=== PATIENT | female | born 1965 | race African-American/Black ===

== ENCOUNTER 2017-01-04 13:27 | Inpatient (IN) | payer OTHER ==
[2017-01-04 14:45] VITALS: BMI 32.2
--- NOTE | 2017-01-04 14:59 | HP ---
CIWA Score - CIWA Score Nausea/Vomitin Muscle Tremors: 3 Anxiety: 3 Agitation: 3 Paroxysmal Sweats: 2 Orientation: 0-Oriented Tacttile Disturbances: 2-Mild Itch/Numbness/Burn Auditory Disturbances: 2-Mild Harshness/Frighten Visual Disturbances: 2-Mild Sensitivity Headache: 2-Mild CIWA-Ar Total Score: 22 Admission ROS BHS - HPI Chief Complaint: i need help to stop drinking alcohol,cocaine and marijuana Allergies/Adverse Reactions: Allergies Allergy/AdvReac Type Severity Reaction Status Date / Time No Known Allergies Allergy Verified 01/04/17 17:30 History of Present Illness: this 51years old female with alcohol,cocaine and marijuana dependence, withdrawal symptom,last detox [facility] 08/21/16 to 08/25/16 type 2 dm hypertension nicotine dependence bipolar disorder longest period of sobriety 3 years Exam Limitations: No Limitations - Ebola screening Have you traveled outside of the country in the last 21 days: No Have you had contact with anyone from an Ebola affected area: No Have you been sick,other than usual withdrawal symptoms: No Do you have a fever: No - Review of Systems Constitutional: Loss of Appetite, Malaise, Night Sweats, Changes in sleep, Weakness EENT: reports: Nose Congestion Respiratory: reports: No Symptoms reported Cardiac: reports: Palpitations GI: reports: Diarrhea, Nausea, Vomiting, Abdominal cramping : reports: No Symptoms Reported Musculoskeletal: reports: Back Pain, Muscle Pain Integumentary: reports: Dryness Neuro: reports: Headache, Tremors Endocrine: reports: No Symptoms Reported Hematology: reports: No Symptoms Reported Psychiatric: reports: Depressed Other Systems: Reviewed and Negative Patient History - Patient Medical History Hx Anemia: No Hx Asthma: No Hx Chronic Obstructive Pulmonary Disease (COPD): No Hx Cancer: No Hx Cardiac Disorders: No Hx Congestive Heart Failure: No Hx Hypertension: Yes (on medication) Hx Hypercholesterolemia: No Hx Pacemaker: No HX Cerebrovascular Accident: No Hx Seizures: No Hx Dementia: No Hx Diabetes: No Hx Gastrointestinal Disorders: No Hx Liver Disease: No Hx Genitourinary Disorders: No Hx Sexually Transmitted Disorders: No Hx Renal Disease (ESRD): No Hx Thyroid Disease: No Hx Human Immunodeficiency Virus (HIV): No (last 12/20 negative) Hx Hepatitis C: No Hx Depression: No Hx Suicide Attempt: No Hx Bipolar Disorder: Yes (abilify use not complaint ) Hx Schizophrenia: No Other Medical History: no suicidal,no homicidal - Patient Surgical History Past Surgical History: Yes Hx Neurologic Surgery: No Hx Cataract Extraction: No Hx Cardiac Surgery: No Hx Lung Surgery: No Hx Breast Surgery: No Hx Breast Biopsy: No Hx Abdominal Surgery: No Hx Appendectomy: No Hx Cholecystectomy: No Hx Genitourinary Surgery: No Hx Section: No Hx Orthopedic Surgery: No Other Surgical History: SX FOR PILONIDAL CYST IN 1986 Anesthesia Reaction: No - PPD History Previous Implant?: Yes Documented Results: Positive w/o proof Implanted On Prior [facility] Admission?: No PPD to be Administered?: No - Reproductive History Patient is a Female of Child Bearing Age (11 -55 yrs old): Yes Last Menstrual Period: 09/13/15 Patient : No - Smoking Cessation Smoking history: Current every day smoker Have you smoked in the past 12 months: Yes Aproximately how many cigarettes per day: 10 Hx Chewing Tobacco Use: No Initiated information on smoking cessation: Yes 'Breaking Loose' booklet given: 01/04/17 - Substance & Tx. History Hx Alcohol Use: Yes Hx Substance Use: Yes Substance Use Type: Alcohol, Cocaine, Marijuana Hx Substance Use Treatment: Yes ([facility] 08/21/16 to 08/25/16) - Substances Abused Alcohol Route: Oral Frequency: Daily Amount used: 2pints of vodka,virgilio/4 of 40 ozs of beer Age of first use: 15 Date of Last Use: 01/04/17 Cocaine Route: Smoking Frequency: Daily Amount used: 100$ Age of first use: 22 Date of Last Use: 01/03/17 Marijuana/Hashish Route: Smoking Frequency: 1-3 times last 30 days Amount used: 10$ Age of first use: 15 Date of Last Use: 01/03/17 Family Disease History - Family Disease History Family Disease History: Other: Father (WAS AN ALCOHOLIC BEFORE AND STOPPED 8 YRS. AGO), Mother (alcohol) Admission Physical Exam S - Vital Signs Vital Signs: Vital Signs - 24 hr 01/04/17 14:42 Temperature 95.9 F L Pulse Rate 101 H Respiratory 20 Rate Blood Pressure 108/68 - Physical General Appearance: Yes: Moderate Distress, Tremorous, Irritable, Sweating, Anxious HEENTM: Yes: Hearing grossly Normal, Normal ENT Inspection, Pharynx Normal, Nasal Congestion Respiratory: Yes: Lungs Clear, Normal Breath Sounds, No Respiratory Distress Neck: Yes: Within Normal Limits Breast: Yes: Breast Exam Deferred Cardiology: Yes: Within Normal Limits, Regular Rate, S1, S2 Abdominal: Yes: Within Normal Limits, Normal Bowel Sounds, Non Tender, Flat, Soft Genitourinary: Yes: Within Normal Limits Musculoskeletal: Yes: Back pain Extremities: Yes: Within Normal Limits, Normal Range of Motion, Tremors Neurological: Yes: mechanical detailer II-XII NML intact, Fully Oriented, Alert, Motor Strength 5/5 Integumentary: Yes: Dry Lymphatic: Yes: Within Normal Limits - Diagnostic (1) Alcohol dependence with uncomplicated withdrawal Current Visit: No Status: Acute (2) Nicotine dependence Current Visit: No Status: Acute (3) Bipolar disorder, curr episode mixed, severe, with psychotic features Current Visit: No Status: Chronic (4) Cannabis dependence Current Visit: No Status: Chronic (5) Cocaine dependence Current Visit: No Status: Chronic (6) DM Diabetes mellitus type 2 Current Visit: No Status: Chronic (7) Hypertension Current Visit: No Status: Chronic Qualifiers: Hypertension type: essential hypertension Qualified Code(s): I10 - Essential (primary) hypertension (8) Obesity Current Visit: No Status: Chronic Qualifiers: Obesity type: due to excess calories Obesity severity: unspecified obesity severity Qualified Code(s): E66.09 - Other obesity due to excess calories Cleared for Admission S - Detox or Rehab [facility] Level of Care: Medically Managed Detox Regimen/Protocol: Librium [facility] Breath Alcohol Content Breath Alcohol Content: 0 Urine Pregancy Test - Result Urine Test Results: Negative- NO Line Present Urine Drug Screen - Results Drug Screen Negative: No Urine Drug Screen Results: DILEEP-Cocaine
[2017-01-04] MEDS ORDERED: MAGNESIUM CITRATE 300 ML BOTTLE PO PRN (15:38)
[2017-01-04] MEDS ORDERED: hydrOXYzine PAMOATE 50 MG CAPSULE (FP) PO PRN (15:38)
[2017-01-04] MEDS ORDERED: guaiFENesin/D-METHORPHAN HB 10 ML UNIT-DOSE CUPS PO PRN (15:38)
[2017-01-04] MEDS ORDERED: P-EPHED 60MG/TRIPROLIDI 2.5MG TABLET PO PRN (15:38)
[2017-01-04] MEDS ORDERED: IBUPROFEN 400 MG TABLET (FP) PO PRN (15:38)
[2017-01-04] MEDS ORDERED: LOPERAMIDE HCL 2 MG CAPSULE PO PRN (15:38)
[2017-01-04] MEDS ORDERED: chlordiazePOXIDE HCL 25 MG CAPSULE PO PRN (15:38)
[2017-01-04] MEDS ORDERED: diphenhydrAMINE HCL 50 MG CAPSULE PO PRN (15:38)
[2017-01-04] MEDS ORDERED: MENTHOL/PHENOL 1 EACH UD MM PRN (15:38)
[2017-01-04] MEDS ORDERED: ACETAMINOPHEN 325 MG TABLET (FP) PO PRN (15:38)
[2017-01-04] MEDS ORDERED: MAGNESIUM HYDROX 2400MG/30ML ORAL SUSPENSION 30 ML CUP PO PRN (15:38)
[2017-01-04] MEDS ORDERED: chlordiazePOXIDE HCL 25 MG CAPSULE PO ONE (15:38)
[2017-01-04] MEDS: chlordiazePOXIDE HCL 25 MG CAPSULE PO SCH ×2 (17:55→22:29)
[2017-01-04] MEDS: MAG HYDROX/AL HYDROX/SIMETH 30 ML UNIT-DOSE CUP PO PRN (18:48)
[2017-01-04 19:26] LABS: URINE APPEARANCE CLEAR; URINE BILIRUBIN NEGATIVE (NEGATIVE); URINE BLOOD NEGATIVE (NEGATIVE); URINE COLOR DKYELLOW; URINE GLUCOSE (UA) NEGATIVE (NEGATIVE); URINE KETONE TRACE (NEGATIVE); URINE LEUK ESTERASE NEGATIVE (NEGATIVE); URINE NITRITE NEGATIVE (NEGATIVE); URINE PROTEIN NEGATIVE (NEGATIVE); URINE UROBILINOGEN NEGATIVE E.U./dl (0.2-1.0)
[2017-01-04] MEDS: THIAMINE HCL 100 MG TABLET (FP) PO SCH (22:29)
[2017-01-04] MEDS: INSULIN DETEMIR 100 UNITS/ML MDV SQ SCH (23:18)
[2017-01-05] MEDS: chlordiazePOXIDE HCL 25 MG CAPSULE PO SCH ×4 (04:46→22:59)
[2017-01-05] MEDS: metFORMIN HCL 500 MG TABLET (FP) PO SCH ×2 (08:16→17:27)
[2017-01-05 10:27] LABS: ALBUMIN 3.2 g/dl (3.4-5.0); ANION GAP 9 (8-16); CALCIUM 8.8 mg/dL (8.5-10.1); CO2 25 mmol/L (21-32); GLUCOSE,RANDOM 135 mg/dL (74-106)
[2017-01-05 10:30] LABS: ALK PHOS 75 U/L (45-117); BILIRUBIN,TOTAL 0.5 mg/dL (0.2-1.0); CREATININE 0.7 mg/dL (0.55-1.02); MCH 30.5 pg (25.7-33.7); MCHC 34.9 g/dl (32.0-36.0); MEAN CELL VOLUME 87.3 fl (80-96); PLATELET COUNT 253 K/MM3 (134-434); RDW 16.3 % (11.6-15.6); SGOT/AST 10 U/L (15-37); SGPT/ALT 18 U/L (12-78); TOT PROT 6.2 g/dl (6.4-8.2); WHITE BLOOD COUNT 5.2 K/mm3 (4.0-10.0)
[2017-01-05] MEDS: PRENATAL VITAMINS W/ FOLIC ACID TABLET (FP) PO SCH (10:59)
[2017-01-05] MEDS: LISINOPRIL 10 MG TABLET (FP) PO SCH (10:59)
--- NOTE | 2017-01-05 11:34 | PN ---
S CIWA - CIWA Score Nausea/Vomitin Muscle Tremors: 3 Anxiety: 3 Agitation: 3 Paroxysmal Sweats: 1-Minimal Palms Moist Orientation: 0-Oriented Tacttile Disturbances: 1-Very Mild Itch/Numbness Auditory Disturbances: 1-Very Mild Visual Disturbances: 1-Very Mild Sensitivity Headache: 2-Mild CIWA-Ar Total Score: 18 BHS Progress Note (SOAP) Subjective: ALERT,IRRITABLE,ANXIOUS,INTERRUPTED SLEEP,TREMOR,PAIN IN THE BODY Objective: 01/05/17 11:31 Vital Signs Temperature 98.2 F 01/05/17 10:39 Pulse Rate 96 H 01/05/17 10:39 Respiratory Rate 18 01/05/17 10:39 Blood Pressure 116/76 01/05/17 10:39 O2 Sat by Pulse Oximetry (%) EKG NSR NO CHEST PAIN,NO SOB,NO DIZZINESS Laboratory Last Values WBC 5.2 K/mm3 (4.0-10.0) D 01/05/17 07:45 RBC 4.22 M/mm3 (3.60-5.2) 01/05/17 07:45 Hgb 12.9 GM/dL (10.7-15.3) 01/05/17 07:45 Hct 36.8 % (32.4-45.2) 01/05/17 07:45 MCV 87.3 fl (80-96) 01/05/17 07:45 MCHC 34.9 g/dl (32.0-36.0) 01/05/17 07:45 RDW 16.3 % (11.6-15.6) H 01/05/17 07:45 Plt Count 253 K/MM3 (134-434) 01/05/17 07:45 MPV 8.0 fl (7.5-11.1) 01/05/17 07:45 Sodium 139 mmol/L (136-145) 01/05/17 07:45 Potassium 3.9 mmol/L (3.5-5.1) 01/05/17 07:45 Chloride 105 mmol/L (98-107) 01/05/17 07:45 Carbon Dioxide 25 mmol/L (21-32) 01/05/17 07:45 Anion Gap 9 (8-16) 01/05/17 07:45 BUN 9 mg/dL (7-18) 01/05/17 07:45 Creatinine 0.7 mg/dL (0.55-1.02) 01/05/17 07:45 Creat Clearance w eGFR > 60 (>60) 01/05/17 07:45 POC Glucometer 115 UNITS (()) 01/05/17 04:45 Random Glucose 135 mg/dL (74-106) H D 01/05/17 07:45 Calcium 8.8 mg/dL (8.5-10.1) 01/05/17 07:45 Total Bilirubin 0.5 mg/dL (0.2-1.0) D 01/05/17 07:45 AST 10 U/L (15-37) L D 01/05/17 07:45 ALT 18 U/L (12-78) D 01/05/17 07:45 Alkaline Phosphatase 75 U/L (45-117) 01/05/17 07:45 Total Protein 6.2 g/dl (6.4-8.2) L 01/05/17 07:45 Albumin 3.2 g/dl (3.4-5.0) L 01/05/17 07:45 Urine Color Dkyellow 01/04/17 Unknown Urine Appearance Clear 01/04/17 Unknown Urine pH 5.0 (5.0-8.0) D 01/04/17 Unknown Ur Specific Story 1.026 (1.001-1.035) 01/04/17 Unknown Urine Protein Negative (NEGATIVE) 01/04/17 Unknown Urine Glucose (UA) Negative (NEGATIVE) 01/04/17 Unknown Urine Ketones Trace (NEGATIVE) H 01/04/17 Unknown Urine Blood Negative (NEGATIVE) 01/04/17 Unknown Urine Nitrite Negative (NEGATIVE) 01/04/17 Unknown Urine Bilirubin Negative (NEGATIVE) 01/04/17 Unknown Urine Urobilinogen Negative E.U./dl (0.2-1.0) 01/04/17 Unknown Ur Leukocyte Esterase Negative (NEGATIVE) 01/04/17 Unknown 01/05/17 11:33 LABS PENDING Assessment: 01/05/17 11:33 WITHDRAWAL SYMPTOM Plan: CONTINUE DETOX,BGM MONITORING
[2017-01-05] MEDS: MAG HYDROX/AL HYDROX/SIMETH 30 ML UNIT-DOSE CUP PO PRN (16:43)
[2017-01-05] MEDS: THIAMINE HCL 100 MG TABLET (FP) PO SCH (22:59)
[2017-01-05] MEDS: INSULIN DETEMIR 100 UNITS/ML MDV SQ SCH (22:59)
[2017-01-06] MEDS: chlordiazePOXIDE HCL 25 MG CAPSULE PO SCH ×2 (05:15→10:10)
[2017-01-06] MEDS: metFORMIN HCL 500 MG TABLET (FP) PO SCH ×2 (07:50→17:04)
[2017-01-06] MEDS: PRENATAL VITAMINS W/ FOLIC ACID TABLET (FP) PO SCH (10:10)
[2017-01-06] MEDS: LISINOPRIL 10 MG TABLET (FP) PO SCH (10:10)
--- NOTE | 2017-01-06 10:51 | PN ---
S CIWA - CIWA Score Nausea/Vomitin Muscle Tremors: 2 Anxiety: 3 Agitation: 2 Paroxysmal Sweats: 3 Orientation: 0-Oriented Tacttile Disturbances: 2-Mild Itch/Numbness/Burn Auditory Disturbances: 0-None Visual Disturbances: 0-None Headache: 0-None Present CIWA-Ar Total Score: 14 S Progress Note (SOAP) Subjective: interrupted sleep, sweats , coughing , no fever or phlegm Objective: 01/06/17 10:49 Vital Signs Temperature 97.9 F 01/06/17 09:58 Pulse Rate 91 H 01/06/17 09:58 Respiratory Rate 20 01/06/17 09:58 Blood Pressure 119/68 01/06/17 09:58 O2 Sat by Pulse Oximetry (%) Laboratory Tests 01/04/17 01/04/17 01/04/17 16:40 22:28 Unknown WBC RBC Hgb Hct MCV MCHC RDW Plt Count MPV Sodium Potassium Chloride Carbon Dioxide Anion Gap BUN Creatinine Creat Clearance w eGFR POC Glucometer 107 136 Random Glucose Calcium Total Bilirubin AST ALT Alkaline Phosphatase Total Protein Albumin Urine Color Dkyellow Urine Appearance Clear Urine pH 5.0 D Ur Specific [place] 1.026 Urine Protein Negative Urine Glucose (UA) Negative Urine Ketones Trace H Urine Blood Negative Urine Nitrite Negative Urine Bilirubin Negative Urine Urobilinogen Negative Ur Leukocyte Esterase Negative RPR Titer 01/05/17 01/05/17 01/05/17 04:45 07:45 07:45 WBC 5.2 D RBC 4.22 Hgb 12.9 Hct 36.8 MCV 87.3 MCHC 34.9 RDW 16.3 H Plt Count 253 MPV 8.0 Sodium 139 Potassium 3.9 Chloride 105 Carbon Dioxide 25 Anion Gap 9 BUN 9 Creatinine 0.7 Creat Clearance w eGFR > 60 POC Glucometer 115 Random Glucose 135 H D Calcium 8.8 Total Bilirubin 0.5 D AST 10 L D ALT 18 D Alkaline Phosphatase 75 Total Protein 6.2 L Albumin 3.2 L Urine Color Urine Appearance Urine pH Ur Specific [place] Urine Protein Urine Glucose (UA) Urine Ketones Urine Blood Urine Nitrite Urine Bilirubin Urine Urobilinogen Ur Leukocyte Esterase RPR Titer 01/05/17 01/05/17 01/05/17 07:45 16:33 22:56 WBC RBC Hgb Hct MCV MCHC RDW Plt Count MPV Sodium Potassium Chloride Carbon Dioxide Anion Gap BUN Creatinine Creat Clearance w eGFR POC Glucometer 118 113 Random Glucose Calcium Total Bilirubin AST ALT Alkaline Phosphatase Total Protein Albumin Urine Color Urine Appearance Urine pH Ur Specific [place] Urine Protein Urine Glucose (UA) Urine Ketones Urine Blood Urine Nitrite Urine Bilirubin Urine Urobilinogen Ur Leukocyte Esterase RPR Titer Nonreactive 01/06/17 05:14 WBC RBC Hgb Hct MCV MCHC RDW Plt Count MPV Sodium Potassium Chloride Carbon Dioxide Anion Gap BUN Creatinine Creat Clearance w eGFR POC Glucometer 111 Random Glucose Calcium Total Bilirubin AST ALT Alkaline Phosphatase Total Protein Albumin Urine Color Urine Appearance Urine pH Ur Specific [place] Urine Protein Urine Glucose (UA) Urine Ketones Urine Blood Urine Nitrite Urine Bilirubin Urine Urobilinogen Ur Leukocyte Esterase RPR Titer pt aox3 in nad ambulating Assessment: 01/06/17 10:49 withdrawal sx;s cough /uri cont. detox increase fluids robituissin 30 ml po tid 01/06/17 10:50
--- NOTE | 2017-01-06 13:49 | CONSULT ---
[facility] Psychiatric Consult - Data Date of interview: 01/06/17 Admission source: [facility] Identifying data: Another admission to [facility] for this 51 y/o AA female seeking detox treatment for alcohol,cocaine (crack) and cannabis dependence.Patient is ,a mother of one,domiciled and employed. Substance Abuse History: - Smoking Cessation. Smoking history: Current every day smoker. Have you smoked in the past 12 months: Yes. Aproximately how many cigarettes per day: 10. Hx Chewing Tobacco Use: No. Initiated information on smoking cessation: Yes. 'Breaking Loose' booklet given: 01/04/17. - Substance & Tx. History. Hx Alcohol Use: Yes. Hx Substance Use: Yes. Substance Use Type : Alcohol, Cocaine, Marijuana. Hx Substance Use Treatment: Yes ([facility] 08/21/16 to 08/25/16). - Substances Abused. Alcohol. Route: Oral. Frequency: Daily. Amount used: 2pints of vodka,virgilio/4 of 40 ozs of beer. Age of first use: 15. Date of Last Use: 01/04/17. Cocaine. Route: Smoking. Frequency: Daily. Amount used: 100$. Age of first use: 22. Date of Last Use: 01/03/17. Marijuana/Hashish. Route: Smoking. Frequency: 1-3 times last 30 days. Amount used: 10$. Age of first use: 15. Date of Last Use: 01/03/17 Medical History: Diabetes mellitus,hypertension,varicose veins,uterine fibroids and a history of surgical excison of a pilonidal cyst. Psychiatric History: Diagnosed with Bipolar Disorder (1996).Known to [facility]) and [facility] (prior psychiatric hospitalizations) .Prescribed abilify 10 mg/day + ambien 10 mg/hs.No history of suicide attempts.No affiliation with [facility] care providers.Ms Peterson reports that she is scheduled for an intake interview on 01/17/17 at a community mental health center in the [place] (name not recalled by patient). Physical/Sexual Abuse/Trauma History: Patient denies. Additional Comment: Urine Drug Screen Results: DILEEP-Cocaine.Noted. Mental Status Exam - Mental Status Exam Alert and Oriented to: Time, Place, Person Cognitive Function: Good Patient Appearance: Well Groomed (obese) Mood: Hopeful, Euthymic Affect: Appropriate, Normal Range Patient Behavior: Appropriate, Cooperative Speech Pattern: Clear Voice Loudness: Normal Thought Process: Intact, Goal Oriented Thought Disorder: Not Present Hallucinations: Denies Suicidal Ideation: Denies Homicidal Ideation: Denies Insight/Judgement: Poor Sleep: Poorly, Difficulty falling asleep Appetite: Good Muscle strength/Tone: Normal Gait/Station: Normal Psychiatric Findings - Problem List ([place] 1, 2,3) (1) Alcohol dependence with uncomplicated withdrawal Current Visit: Yes Status: Acute (2) Cannabis dependence Current Visit: Yes Status: Acute (3) Cocaine dependence Current Visit: Yes Status: Acute (4) Nicotine dependence Current Visit: Yes Status: Acute (5) Drug-induced mood disorder Current Visit: Yes Status: Acute (6) Bipolar disorder Current Visit: Yes Status: Chronic (7) DM Diabetes mellitus type 2 Current Visit: Yes Status: Chronic (8) Hypertension Current Visit: Yes Status: Chronic Qualifiers: Hypertension type: essential hypertension Qualified Code(s): I10 - Essential (primary) hypertension (9) Obesity Current Visit: Yes Status: Chronic Qualifiers: Obesity type: due to excess calories Obesity severity: unspecified obesity severity Qualified Code(s): E66.09 - Other obesity due to excess calories (10) Insomnia Current Visit: Yes Status: Acute - Initial Treatment Plan Initial Treatment Plan: Psychoeducation.Detoxification.Medications : abilify 10 mg po daily + ambien 10 mg po hs.Side effects/benefits of both drugs discussed with the patient.Made aware of risk for parasomnias.Patient agrees with this careplan.Observation.
[2017-01-06] MEDS: ARIPiprazole 10 MG TABLET PO SCH (15:04)
[2017-01-06] MEDS: chlordiazePOXIDE 5 MG CAPSULE PO SCH ×2 (17:04→22:13)
[2017-01-06] MEDS: THIAMINE HCL 100 MG TABLET (FP) PO SCH (22:13)
[2017-01-06] MEDS: ZOLPIDEM TARTRATE 10 MG TABLET (PARK CARE ONLY) PO PRN (22:15)
[2017-01-06] MEDS: MAG HYDROX/AL HYDROX/SIMETH 30 ML UNIT-DOSE CUP PO PRN (22:16)
[2017-01-06] MEDS: INSULIN DETEMIR 100 UNITS/ML MDV SQ SCH (22:18)
[2017-01-07] MEDS: chlordiazePOXIDE 5 MG CAPSULE PO SCH ×2 (06:08→10:17)
[2017-01-07] MEDS: metFORMIN HCL 500 MG TABLET (FP) PO SCH ×2 (06:11→17:22)
[2017-01-07] MEDS: PRENATAL VITAMINS W/ FOLIC ACID TABLET (FP) PO SCH (10:17)
[2017-01-07] MEDS: ARIPiprazole 10 MG TABLET PO SCH (10:17)
[2017-01-07] MEDS: LISINOPRIL 10 MG TABLET (FP) PO SCH (10:17)
--- NOTE | 2017-01-07 10:31 | PN ---
BHS Progress Note (SOAP) Subjective: irritable sweats Objective: 01/07/17 10:30 Vital Signs Temperature 97.3 F L 01/07/17 06:13 Pulse Rate 91 H 01/07/17 06:13 Respiratory Rate 20 01/07/17 06:13 Blood Pressure 125/76 01/07/17 06:13 O2 Sat by Pulse Oximetry (%) awake/alert ambulating no acute distress Assessment: 01/07/17 10:31 withdrawal sx Plan: continue detox increase fluids d/c in am
[2017-01-07] MEDS: chlordiazePOXIDE HCL 10 MG CAPSULE PO SCH ×2 (17:22→22:23)
[2017-01-07] MEDS: THIAMINE HCL 100 MG TABLET (FP) PO SCH (22:22)
[2017-01-07] MEDS: ZOLPIDEM TARTRATE 10 MG TABLET (PARK CARE ONLY) PO PRN (22:26)
[2017-01-07] MEDS: INSULIN DETEMIR 100 UNITS/ML MDV SQ SCH (22:26)
--- NOTE | 2017-01-07 23:40 | EKG ---
Test Reason : Blood Pressure : / mmHG Vent. Rate : 095 BPM Atrial Rate : 095 BPM P-R Int : 142 ms QRS Dur : 076 ms QT Int : 358 ms P-R-T Axes : 069 049 064 degrees QTc Int : 449 ms NORMAL SINUS RHYTHM ANTERIOR INFARCT , AGE UNDETERMINED ABNORMAL ECG NO PREVIOUS ECGS AVAILABLE Confirmed by DINORAH SHIELDS, VJ ([id number]) on 01/07/2017 11:39:46 PM Referred By: Confirmed By:VJ COPELAND MD
[2017-01-08 06:12] VITALS: BP 97/66; PULSE 75; TEMP 98.1
[2017-01-08] MEDS: chlordiazePOXIDE HCL 10 MG CAPSULE PO SCH (06:18)
[2017-01-08] MEDS: metFORMIN HCL 500 MG TABLET (FP) PO SCH (08:01)
--- NOTE | 2017-01-08 08:20 | DS ---
[facility] Detox Discharge Summary Admission Date: 01/04/17 Discharge Date: 01/08/17 - History Present History: Alcohol Dependence, Cannabis Dependence, Cocaine Dependence - Physical Exam Results Vital Signs: Vital Signs Temperature 98.1 F 01/08/17 06:00 Pulse Rate 75 01/08/17 06:00 Respiratory Rate 18 01/08/17 06:00 Blood Pressure 97/66 01/08/17 06:00 O2 Sat by Pulse Oximetry (%) - Treatment Hospital Course: Detox Protocol Followed, Detoxed Safely, Responded well, Discharged Condition Good, Rehab Referral Accepted - Medication Discharge Medications: Ambulatory Orders Lisinopril 10 mg PO DAILY #30 tablet 10/27/15 Aripiprazole [Abilify -] 10 mg PO HS 08/21/16 Insulin Aspart [Novolog] 13 unit SQ TIDCM 08/21/16 Insulin Glargine,Hum.rec.anlog [Lantus Solostar PEN (NF)] 30 units SQ HS Metformin HCl [Glucophage -] 500 mg PO BID 08/21/16 Zolpidem Tartrate [Ambien] 10 mg PO HS #14 tablet MDD 10 08/22/16 Trazodone HCl [Desyrel -] 100 mg PO HS 01/04/17 Aripiprazole [Abilify -] 10 mg PO DAILY #30 tablet 01/06/17 - Diagnosis (1) Alcohol dependence with uncomplicated withdrawal Current Visit: Yes Status: Chronic (2) Cannabis dependence Current Visit: Yes Status: Chronic (3) Cocaine dependence Current Visit: Yes Status: Chronic (4) Drug-induced mood disorder Current Visit: Yes Status: Chronic (5) Insomnia Current Visit: Yes Status: Chronic (6) Nicotine dependence Current Visit: Yes Status: Chronic Qualifiers: Nicotine product type: cigarettes Substance use status: uncomplicated Qualified Code(s): F17.210 - Nicotine dependence, cigarettes, uncomplicated (7) Bipolar disorder Current Visit: Yes Status: Chronic (8) DM Diabetes mellitus type 2 Current Visit: Yes Status: Chronic (9) Hypertension Current Visit: Yes Status: Chronic Qualifiers: Hypertension type: essential hypertension Qualified Code(s): I10 - Essential (primary) hypertension (10) Obesity Current Visit: Yes Status: Chronic Qualifiers: Obesity type: due to excess calories Obesity severity: unspecified obesity severity Qualified Code(s): E66.09 - Other obesity due to excess calories (11) Alcohol dependence Current Visit: No Status: Active (12) Anxiety disorder Current Visit: No Status: Acute (13) Bipolar disorder, curr episode mixed, severe, with psychotic features Current Visit: Yes Status: Chronic - AMA Did Patient Leave Against Medical Advice: No
== END 2017-01-08 09:12 | disposition home or self-care (01) | DRG 774 ==
LOC: YASAS 13:27 → Y6N 15:50
PROVIDERS: ADMIT Internal Medicine; ATTEND Internal Medicine Addiction Medicine
PROC: HZ2ZZZZ Detoxification Services for Substance Abuse Treatment (ICD-10-PCS; principal; 2017-01-04)
DX: F10.230 Alcohol dependence with withdrawal, uncomplicated (principal); F14.20 Cocaine dependence, uncomplicated; F12.20 Cannabis dependence, uncomplicated; F17.210 Nicotine dependence, cigarettes, uncomplicated; F19.24 Other psychoactive substance dependence with psychoactive substance-induced mood disorder; F31.64 Bipolar disorder, current episode mixed, severe, with psychotic features; F41.9 Anxiety disorder, unspecified; G47.00 Insomnia, unspecified; E11.9 Type 2 diabetes mellitus without complications; I10 Essential (primary) hypertension; E66.09 Other obesity due to excess calories; Z68.32 Body mass index [BMI] 32.0-32.9, adult; I83.90 Asymptomatic varicose veins of unspecified lower extremity; D25.9 Leiomyoma of uterus, unspecified; Z91.14 Patient's other noncompliance with medication regimen; J06.9 Acute upper respiratory infection, unspecified
CPT/HCPCS: 36415; 71020-TC; 80053; 81003; 85027; 86593; 93005; 93010

== ENCOUNTER 2017-11-18 11:25 | Inpatient (IN) | payer OTHER ==
[2017-11-18 12:34] VITALS: BMI 32.8
--- NOTE | 2017-11-18 12:49 | HP ---
CIWA Score - CIWA Score Nausea/Vomitin Muscle Tremors: 3 Anxiety: 3 Agitation: 3 Paroxysmal Sweats: 1-Minimal Palms Moist Orientation: 0-Oriented Tacttile Disturbances: 2-Mild Itch/Numbness/Burn Auditory Disturbances: 2-Mild Harshness/Frighten Visual Disturbances: 0-None Headache: 2-Mild CIWA-Ar Total Score: 19 Admission ROS [facility] - HPI Chief Complaint: I NEED HELP TO STOP DRINKING ALCOHOL,COCAINE AND MARIJUANA Allergies/Adverse Reactions: Allergies Allergy/AdvReac Type Severity Reaction Status Date / Time No Known Allergies Allergy Verified 11/18/17 12:46 History of Present Illness: THIS 52 YEARS OLD FEMALE WITH ALCOHOL,COCAINE AND MARIJUANA DEPENDENCE,SEEKING DETOX,WITHDRAWAL SYMPTOM,LAST DETOX [facility] 01/04/17 TO 01/08/17 SYNCOPE HTN,IDDM, NICOTINE DEPENDENCE BIPOLAR DISORDER LONGEST PERIOD OF SOBRIETY 2 AND HALF YEAR Exam Limitations: No Limitations - Ebola screening Have you traveled outside of the country in the last 21 days: No (N) Have you had contact with anyone from an Ebola affected area: No Have you been sick,other than usual withdrawal symptoms: No Do you have a fever: No - Review of Systems Constitutional: Loss of Appetite, Malaise, Night Sweats, Changes in sleep, Weakness EENT: reports: Nose Congestion Respiratory: reports: No Symptoms reported Cardiac: reports: Palpitations GI: reports: Diarrhea, Nausea, Vomiting, Abdominal cramping : reports: No Symptoms Reported Musculoskeletal: reports: Back Pain, Muscle Pain Integumentary: reports: Dryness Neuro: reports: Headache, Tremors Endocrine: reports: No Symptoms Reported Hematology: reports: No Symptoms Reported Psychiatric: reports: No Sypmtoms Reported, Judgement Intact, Mood/Affect Appropiate, Orientated x3, other (BIPOLAR DISORDER) Patient History - Patient Medical History Hx Anemia: No Hx Asthma: No Hx Chronic Obstructive Pulmonary Disease (COPD): No Hx Cancer: No Hx Cardiac Disorders: No Hx Congestive Heart Failure: No Hx Hypertension: Yes (on medication) Hx Hypercholesterolemia: No Hx Pacemaker: No HX Cerebrovascular Accident: No Hx Seizures: No Hx Dementia: No Hx Diabetes: Yes (IDDM) Hx Gastrointestinal Disorders: No Hx Liver Disease: No Hx Genitourinary Disorders: No Hx Sexually Transmitted Disorders: No Hx Renal Disease (ESRD): No Hx Thyroid Disease: No Hx Human Immunodeficiency Virus (HIV): No (last 12/20 negative) Hx Hepatitis C: No Hx Depression: No Hx Suicide Attempt: No Hx Bipolar Disorder: Yes (abilify use not complaint ) Hx Schizophrenia: No Other Medical History: NO SUICIDAL,NO HOMICIDAL - Patient Surgical History Past Surgical History: Yes Hx Neurologic Surgery: No Hx Cataract Extraction: No Hx Cardiac Surgery: No Hx Lung Surgery: No Hx Breast Surgery: No Hx Breast Biopsy: No Hx Abdominal Surgery: No Hx Appendectomy: No Hx Cholecystectomy: No Hx Genitourinary Surgery: No Hx Section: No Hx Orthopedic Surgery: No Other Surgical History: SX FOR PILONIDAL CYST IN 1986 Anesthesia Reaction: No - PPD History Previous Implant?: Yes Documented Results: Positive w/proof PPD to be Administered?: No - Reproductive History Last Menstrual Period: 09/13/15 - Smoking Cessation Smoking history: Current every day smoker Have you smoked in the past 12 months: Yes Aproximately how many cigarettes per day: 10 Hx Chewing Tobacco Use: No Initiated information on smoking cessation: Yes 'Breaking Loose' booklet given: 11/18/17 - Substance & Tx. History Hx Alcohol Use: Yes Hx Substance Use: Yes Substance Use Type: Alcohol, Cocaine, Marijuana Hx Substance Use Treatment: Yes ([facility] 01/04/17 TO ) - Substances Abused Alcohol Route: Oral Frequency: Daily Amount used: 2PINTS OF VOKA/4 OF 40 OZS OF BEER Age of first use: 15 Date of Last Use: 11/17/17 Cocaine Route: Smoking Frequency: 3-6 times per week Amount used: 100$ Age of first use: 21 Date of Last Use: 11/17/17 Marijuana/Hashish Route: Smoking Frequency: 1-3 times last 30 days Amount used: 10$ Age of first use: 15 Date of Last Use: 11/17/17 Family Disease History - Family Disease History Family Disease History: Other: Father (WAS AN ALCOHOLIC BEFORE AND STOPPED 8 YRS. AGO), Mother (alcohol) Admission Physical Exam S - Vital Signs Vital Signs: Vital Signs - 24 hr 11/18/17 12:32 Temperature 95.8 F L Pulse Rate 105 H Respiratory 20 Rate Blood Pressure 147/97 - Physical General Appearance: Yes: Moderate Distress, Obese, Tremorous, Irritable, Sweating, Anxious HEENTM: Yes: Normal ENT Inspection, JAY, Pharynx Normal Respiratory: Yes: Lungs Clear, Normal Breath Sounds, No Respiratory Distress Neck: Yes: Within Normal Limits, Supple, Trachea in good position Breast: Yes: Breast Exam Deferred Cardiology: Yes: Within Normal Limits, Regular Rhythm, Regular Rate, S1, S2 Abdominal: Yes: Within Normal Limits, Normal Bowel Sounds, Non Tender, Flat, Soft Genitourinary: Yes: Within Normal Limits Back: Yes: Muscle Spasm Extremities: Yes: Normal Range of Motion, Tremors Neurological: Yes: stripper color II-XII NML intact, Alert, Motor Strength 5/5, Normal Mood /Affect Integumentary: Yes: Dry Lymphatic: Yes: Within Normal Limits - Diagnostic (1) Alcohol dependence with uncomplicated withdrawal Current Visit: No Status: Chronic (2) Bipolar disorder Current Visit: No Status: Chronic (3) Cannabis dependence Current Visit: No Status: Chronic (4) Cocaine dependence Current Visit: No Status: Chronic (5) Hypertension Current Visit: No Status: Chronic Qualifiers: Hypertension type: essential hypertension Qualified Code(s): I10 - Essential (primary) hypertension (6) Nicotine dependence Current Visit: No Status: Chronic Qualifiers: Nicotine product type: cigarettes Substance use status: uncomplicated Qualified Code(s): F17.210 - Nicotine dependence, cigarettes, uncomplicated (7) Obesity Current Visit: No Status: Chronic Qualifiers: Obesity type: due to excess calories (8) DM type 2 (diabetes mellitus, type 2) Current Visit: Yes Status: Acute Cleared for Admission [facility] - Detox or Rehab [facility] Level of Care: Medically Managed Detox Regimen/Protocol: Librium S Breath Alcohol Content Breath Alcohol Content: 0 Urine Pregancy Test - Result Urine Test Results: Negative- NO Line Present Urine Drug Screen - Results Drug Screen Negative: No Urine Drug Screen Results: THC-Marijuana, DILEEP-Cocaine
[2017-11-18] MEDS ORDERED: P-EPHED 60MG/TRIPROLIDI 2.5MG TABLET PO PRN (13:08)
[2017-11-18] MEDS ORDERED: MAGNESIUM CITRATE 300 ML BOTTLE PO PRN (13:08)
[2017-11-18] MEDS ORDERED: guaiFENesin/D-METHORPHAN HB 10 ML UNIT-DOSE CUPS PO PRN (13:08)
[2017-11-18] MEDS ORDERED: MAGNESIUM HYDROX 2400MG/30ML ORAL SUSPENSION 30 ML CUP PO PRN (13:08)
[2017-11-18] MEDS ORDERED: chlordiazePOXIDE HCL 25 MG CAPSULE PO PRN (13:08)
[2017-11-18] MEDS ORDERED: MENTHOL/PHENOL 1 EACH UD MM PRN (13:08)
[2017-11-18] MEDS ORDERED: LOPERAMIDE HCL 2 MG CAPSULE PO PRN (13:08)
[2017-11-18] MEDS ORDERED: MAG HYDROX/AL HYDROX/SIMETH 30 ML UNIT-DOSE CUP PO PRN (13:08)
[2017-11-18] MEDS ORDERED: hydrOXYzine PAMOATE 50 MG CAPSULE (FP) PO PRN (13:08)
[2017-11-18] MEDS ORDERED: chlordiazePOXIDE HCL 25 MG CAPSULE PO ONE (13:50)
[2017-11-18] MEDS: metFORMIN HCL 500 MG TABLET (FP) PO SCH (16:56)
[2017-11-18] MEDS: chlordiazePOXIDE HCL 25 MG CAPSULE PO SCH ×2 (16:56→22:39)
[2017-11-18] MEDS: THIAMINE HCL 100 MG TABLET (FP) PO SCH (22:38)
[2017-11-18] MEDS: ACETAMINOPHEN 325 MG TABLET (FP) PO PRN (22:38)
[2017-11-18] MEDS: INSULIN DETEMIR 100 UNITS/ML MDV SQ SCH (22:40)
[2017-11-18 23:41] LABS: URINE APPEARANCE SLCLOUDY; URINE BILIRUBIN NEGATIVE (NEGATIVE); URINE BLOOD 1+ (NEGATIVE); URINE COLOR AMBER; URINE GLUCOSE (UA) NEGATIVE (NEGATIVE); URINE KETONE TRACE (NEGATIVE); URINE LEUK ESTERASE NEGATIVE (NEGATIVE); URINE NITRITE NEGATIVE (NEGATIVE); URINE PROTEIN NEGATIVE (NEGATIVE)
[2017-11-18 23:44] LABS: EPI CELLS RARE /HPF (FEW); URINE BACTERIA RARE /hpf (NONE SEEN); URINE MUCUS FEW
[2017-11-19] MEDS: ACETAMINOPHEN 325 MG TABLET (FP) PO PRN (03:04)
[2017-11-19] MEDS: chlordiazePOXIDE HCL 25 MG CAPSULE PO SCH ×4 (05:27→22:46)
[2017-11-19] MEDS: IBUPROFEN 400 MG TABLET (FP) PO PRN (05:30)
[2017-11-19] MEDS: metFORMIN HCL 500 MG TABLET (FP) PO SCH ×2 (07:07→17:17)
[2017-11-19 10:09] LABS: HEMATOCRIT 42.3 % (32.4-45.2); HEMOGLOBIN 14.4 GM/dL (10.7-15.3); MEAN CELL VOLUME 88.4 fl (80-96); PLATELET COUNT 350 K/MM3 (134-434); RBC 4.78 M/mm3 (3.60-5.2); RDW 15.6 % (11.6-15.6); WHITE BLOOD COUNT 5.8 K/mm3 (4.0-10.0)
--- NOTE | 2017-11-19 10:22 | CONSULT ---
[facility] Psychiatric Consult - Data Date of interview: 11/19/17 Admission source: [facility] Identifying data: THIS 52 YEARS OLD FEMALE WITH ALCOHOL,COCAINE AND MARIJUANA DEPENDENCE,SEEKING DETOX,. Patient reports psychiatric hospitalization history , history of Bipolar Disorder Substance Abuse History: Smoking Cessation. Smoking history: Current every day smoker. Have you smoked in the past 12 months: Yes. Aproximately how many cigarettes per day: 10. Hx Chewing Tobacco Use: No. Initiated information on smoking cessation: Yes. 'Breaking Loose' booklet given: 11/18/17. - Substance & Tx. History. Hx Alcohol Use: Yes. Hx Substance Use: Yes. Substance Use Type : Alcohol, Cocaine, Marijuana. Hx Substance Use Treatment: Yes ([facility] 01/04/17 TO ). - Substances Abused. Alcohol. Route: Oral. Frequency: Daily. Amount used: 2PINTS OF VOKA/4 OF 40 OZS OF BEER. Age of first use: 15. Date of Last Use: 11/17/17. Cocaine. Route: Smoking. Frequency: 3-6 times per week. Amount used: 100$. Age of first use: 21. Date of Last Use: . Marijuana/Hashish. Route: Smoking. Frequency: 1-3 times last 30 days. Amount used: 10$. Age of first use: 15. Date of Last Use: 11/17/17 Medical History: Obesity, DM-2, HTN. Psychiatric History: Patient reports history of Bipolr Disorder leticia kimball recent psychiatric admission on 2016 at [facility], reports taking prior to admission: Abilify 10mg poqd. Ambien 10mg po qhs. As pe computer hes been takinmg Trazodone 100mg po qhd as well. Physical/Sexual Abuse/Trauma History: Denies Additional Comment: Abilify 10mg poqd. Ambien 10mg po qhs Mental Status Exam - Mental Status Exam Alert and Oriented to: Person Cognitive Function: Fair Patient Appearance: Unkempt Mood: Sad Affect: Mood Congruent Patient Behavior: Cooperative Speech Pattern: Appropriate Voice Loudness: Mildly Soft/Quiet Thought Process: Goal Oriented Thought Disorder: Being Controlled Hallucinations: Denies Suicidal Ideation: Denies Homicidal Ideation: Denies Insight/Judgement: Fair Sleep: Difficulty falling asleep Appetite: Weight gain Muscle strength/Tone: Mild Hypotonicity Gait/Station: Shuffling Additional Comments: Abilify 10mg poqd. Ambien 10mg po qhs Psychiatric Findings - Problem List ([place] 1, 2,3) (1) Alcohol dependence Current Visit: No Status: Active (2) Alcohol dependence with uncomplicated withdrawal Current Visit: No Status: Chronic (3) Bipolar disorder Current Visit: No Status: Chronic (4) Bipolar disorder, curr episode mixed, severe, with psychotic features Current Visit: No Status: Chronic (5) Cocaine dependence Current Visit: No Status: Chronic (6) Drug-induced mood disorder Current Visit: No Status: Chronic (7) Nicotine dependence Current Visit: No Status: Chronic Qualifiers: Nicotine product type: cigarettes Substance use status: uncomplicated Qualified Code(s): F17.210 - Nicotine dependence, cigarettes, uncomplicated - Initial Treatment Plan Initial Treatment Plan: Abilify 10mg poqd. Ambien 10mg po qhs
[2017-11-19] MEDS: ARIPiprazole 10 MG TABLET PO SCH (10:34)
[2017-11-19] MEDS: LISINOPRIL 10 MG TABLET (FP) PO SCH (10:34)
[2017-11-19] MEDS: ASPIRIN 81 MG CHEWABLE TABLETS PO SCH (10:34)
[2017-11-19] MEDS: PRENATAL VITAMINS W/ FOLIC ACID TABLET (FP) PO SCH (10:34)
[2017-11-19 10:38] LABS: CHLORIDE 106 mmol/L (98-107); POTASSIUM 4.2 mmol/L (3.5-5.1); SODIUM 139 mmol/L (136-145)
--- NOTE | 2017-11-19 11:02 | EKG ---
Test Reason : Blood Pressure : / mmHG Vent. Rate : 086 BPM Atrial Rate : 086 BPM P-R Int : 156 ms QRS Dur : 080 ms QT Int : 392 ms P-R-T Axes : 063 035 057 degrees QTc Int : 469 ms NORMAL SINUS RHYTHM NORMAL ECG WHEN COMPARED WITH ECG OF 04-JAN-2017 15:48, NON-SPECIFIC CHANGE IN ST SEGMENT IN ANTERIOR LEADS Confirmed by GREGORIO SHIELDS, SILVANO ([id number]) on 11/19/2017 11:01:38 AM Referred By: Confirmed By:SILVANO PERKINS MD
[2017-11-19 11:03] LABS: ALBUMIN 3.5 g/dl (3.4-5.0); ALK PHOS 111 U/L (45-117); ANION GAP 6 (8-16); BILIRUBIN,TOTAL 0.6 mg/dL (0.2-1.0); BLOOD UREA NITROGEN 9 mg/dL (7-18); CALCIUM 8.9 mg/dL (8.5-10.1); CO2 27 mmol/L (21-32); CREATININE 0.8 mg/dL (0.55-1.02); GLUCOSE,RANDOM 86 mg/dL (74-106); SGOT/AST 19 U/L (15-37); SGPT/ALT 33 U/L (12-78); TOT PROT 7.1 g/dl (6.4-8.2)
--- NOTE | 2017-11-19 11:23 | PN ---
S CIWA - CIWA Score Nausea/Vomitin-Mild Nausea/No Vomiting Muscle Tremors: 4-Moderate,w/Arms Extend Anxiety: 4-Mod. Anxious/Guarded Agitation: 4-Moderately Restless Paroxysmal Sweats: 1-Minimal Palms Moist Orientation: 0-Oriented Tacttile Disturbances: 1-Very Mild Itch/Numbness Auditory Disturbances: 0-None Visual Disturbances: 0-None Headache: 0-None Present CIWA-Ar Total Score: 15 BHS Progress Note (SOAP) Subjective: sweat tremor anxiety irritable restlessness Objective: 11/19/17 11:22 Vital Signs Temperature 97.1 F L 11/19/17 10:35 Pulse Rate 82 11/19/17 10:35 Respiratory Rate 18 11/19/17 10:35 Blood Pressure 135/80 11/19/17 10:35 O2 Sat by Pulse Oximetry (%) Laboratory Last Values WBC 5.8 K/mm3 (4.0-10.0) 11/19/17 05:50 RBC 4.78 M/mm3 (3.60-5.2) 11/19/17 05:50 Hgb 14.4 GM/dL (10.7-15.3) D 11/19/17 05:50 Hct 42.3 % (32.4-45.2) 11/19/17 05:50 MCV 88.4 fl (80-96) 11/19/17 05:50 MCH 30.0 pg (25.7-33.7) 11/19/17 05:50 MCHC 34.0 g/dl (32.0-36.0) 11/19/17 05:50 RDW 15.6 % (11.6-15.6) 11/19/17 05:50 Plt Count 350 K/MM3 (134-434) D 11/19/17 05:50 MPV 9.0 fl (7.5-11.1) D 11/19/17 05:50 Sodium 139 mmol/L (136-145) 11/19/17 05:50 Potassium 4.2 mmol/L (3.5-5.1) 11/19/17 05:50 Chloride 106 mmol/L (98-107) 11/19/17 05:50 Carbon Dioxide 27 mmol/L (21-32) 11/19/17 05:50 Anion Gap 6 (8-16) L 11/19/17 05:50 BUN 9 mg/dL (7-18) 11/19/17 05:50 Creatinine 0.8 mg/dL (0.55-1.02) 11/19/17 05:50 Creat Clearance w eGFR > 60 (>60) 11/19/17 05:50 POC Glucometer 126 UNITS (80-120) 11/19/17 05:27 Random Glucose 86 mg/dL (74-106) 11/19/17 05:50 Calcium 8.9 mg/dL (8.5-10.1) 11/19/17 05:50 Total Bilirubin 0.6 mg/dL (0.2-1.0) 11/19/17 05:50 AST 19 U/L (15-37) 11/19/17 05:50 ALT 33 U/L (12-78) 11/19/17 05:50 Alkaline Phosphatase 111 U/L (45-117) 11/19/17 05:50 Total Protein 7.1 g/dl (6.4-8.2) 11/19/17 05:50 Albumin 3.5 g/dl (3.4-5.0) 11/19/17 05:50 Urine Color [place] 11/18/17 20:21 Urine Appearance Slcloudy 11/18/17 20:21 Urine pH 5.0 (5.0-8.0) 11/18/17 20:21 Ur Specific [place] 1.027 (1.001-1.035) 11/18/17 20:21 Urine Protein Negative (NEGATIVE) 11/18/17 20:21 Urine Glucose (UA) Negative (NEGATIVE) 11/18/17 20:21 Urine Ketones Trace (NEGATIVE) H 11/18/17 20:21 Urine Blood 1+ (NEGATIVE) H 11/18/17 20:21 Urine Nitrite Negative (NEGATIVE) 11/18/17 20:21 Urine Bilirubin Negative (NEGATIVE) 11/18/17 20:21 Urine Urobilinogen 2.0 mg/dL (0.2-1.0) H 11/18/17 20:21 Ur Leukocyte Esterase Negative (NEGATIVE) 11/18/17 20:21 Urine WBC (Auto) 2 /hpf (3-5) 11/18/17 20:21 Urine RBC (Auto) 7 /hpf (0-3) 11/18/17 20:21 Ur Epithelial Cells Rare /HPF (FEW) 11/18/17 20:21 Urine Bacteria Rare /hpf (NONE SEEN) 11/18/17 20:21 Urine Mucus Few 11/18/17 20:21 lab noted Assessment: 11/19/17 11:23 withdrawal sx Plan: continue detox
[2017-11-19] MEDS ORDERED: METHOCARBAMOL 500 MG TABLET PO PRN (14:53)
[2017-11-19] MEDS: ZOLPIDEM TARTRATE 10 MG TABLET (PARK CARE ONLY) PO PRN (22:46)
[2017-11-19] MEDS: THIAMINE HCL 100 MG TABLET (FP) PO SCH (22:46)
[2017-11-19] MEDS: INSULIN DETEMIR 100 UNITS/ML MDV SQ SCH (22:46)
[2017-11-19] MEDS: LIDOCAINE PATCH REMOVAL MC SCH (22:52)
[2017-11-20] MEDS: IBUPROFEN 400 MG TABLET (FP) PO PRN (02:37)
[2017-11-20] MEDS: chlordiazePOXIDE HCL 25 MG CAPSULE PO SCH ×2 (05:23→11:01)
[2017-11-20] MEDS: metFORMIN HCL 500 MG TABLET (FP) PO SCH ×2 (06:44→17:06)
--- NOTE | 2017-11-20 09:40 | PN ---
S CIWA - CIWA Score Nausea/Vomitin-Mild Nausea/No Vomiting Muscle Tremors: 4-Moderate,w/Arms Extend Anxiety: 3 Agitation: 3 Paroxysmal Sweats: 1-Minimal Palms Moist Orientation: 0-Oriented Tacttile Disturbances: 0-None Auditory Disturbances: 0-None Visual Disturbances: 0-None Headache: 0-None Present CIWA-Ar Total Score: 12 BHS Progress Note (SOAP) Subjective: sweat tremor restlessness irritability anxiety Objective: 11/20/17 09:38 Vital Signs Temperature 97.7 F 11/20/17 06:00 Pulse Rate 87 11/20/17 06:00 Respiratory Rate 18 11/20/17 06:00 Blood Pressure 141/77 11/20/17 06:00 O2 Sat by Pulse Oximetry (%) Laboratory Last Values WBC 5.8 K/mm3 (4.0-10.0) 11/19/17 05:50 RBC 4.78 M/mm3 (3.60-5.2) 11/19/17 05:50 Hgb 14.4 GM/dL (10.7-15.3) D 11/19/17 05:50 Hct 42.3 % (32.4-45.2) 11/19/17 05:50 MCV 88.4 fl (80-96) 11/19/17 05:50 MCH 30.0 pg (25.7-33.7) 11/19/17 05:50 MCHC 34.0 g/dl (32.0-36.0) 11/19/17 05:50 RDW 15.6 % (11.6-15.6) 11/19/17 05:50 Plt Count 350 K/MM3 (134-434) D 11/19/17 05:50 MPV 9.0 fl (7.5-11.1) D 11/19/17 05:50 Sodium 139 mmol/L (136-145) 11/19/17 05:50 Potassium 4.2 mmol/L (3.5-5.1) 11/19/17 05:50 Chloride 106 mmol/L (98-107) 11/19/17 05:50 Carbon Dioxide 27 mmol/L (21-32) 11/19/17 05:50 Anion Gap 6 (8-16) L 11/19/17 05:50 BUN 9 mg/dL (7-18) 11/19/17 05:50 Creatinine 0.8 mg/dL (0.55-1.02) 11/19/17 05:50 Creat Clearance w eGFR > 60 (>60) 11/19/17 05:50 POC Glucometer 135 UNITS (80-120) 11/20/17 05:17 Random Glucose 86 mg/dL (74-106) 11/19/17 05:50 Calcium 8.9 mg/dL (8.5-10.1) 11/19/17 05:50 Total Bilirubin 0.6 mg/dL (0.2-1.0) 11/19/17 05:50 AST 19 U/L (15-37) 11/19/17 05:50 ALT 33 U/L (12-78) 11/19/17 05:50 Alkaline Phosphatase 111 U/L (45-117) 11/19/17 05:50 Total Protein 7.1 g/dl (6.4-8.2) 11/19/17 05:50 Albumin 3.5 g/dl (3.4-5.0) 11/19/17 05:50 Urine Color Caroline 11/18/17 20:21 Urine Appearance Slcloudy 11/18/17 20:21 Urine pH 5.0 (5.0-8.0) 11/18/17 20:21 Ur Specific [place] 1.027 (1.001-1.035) 11/18/17 20:21 Urine Protein Negative (NEGATIVE) 11/18/17 20:21 Urine Glucose (UA) Negative (NEGATIVE) 11/18/17 20:21 Urine Ketones Trace (NEGATIVE) H 11/18/17 20:21 Urine Blood 1+ (NEGATIVE) H 11/18/17 20:21 Urine Nitrite Negative (NEGATIVE) 11/18/17 20:21 Urine Bilirubin Negative (NEGATIVE) 11/18/17 20:21 Urine Urobilinogen 2.0 mg/dL (0.2-1.0) H 11/18/17 20:21 Ur Leukocyte Esterase Negative (NEGATIVE) 11/18/17 20:21 Urine WBC (Auto) 2 /hpf (3-5) 11/18/17 20:21 Urine RBC (Auto) 7 /hpf (0-3) 11/18/17 20:21 Ur Epithelial Cells Rare /HPF (FEW) 11/18/17 20:21 Urine Bacteria Rare /hpf (NONE SEEN) 11/18/17 20:21 Urine Mucus Few 11/18/17 20:21 RPR Titer Nonreactive (NONREACTIVE) 11/19/17 05:50 HIV 1&2 Antibody Screen Negative 11/19/17 05:50 HIV P24 Antigen Negative 11/19/17 05:50 lab noted Assessment: 11/20/17 09:39 withdrawal sx Plan: continue detox
[2017-11-20] MEDS: ASPIRIN 81 MG CHEWABLE TABLETS PO SCH (11:01)
[2017-11-20] MEDS: PRENATAL VITAMINS W/ FOLIC ACID TABLET (FP) PO SCH (11:01)
[2017-11-20] MEDS: LIDOCAINE 5% TOPICAL PATCH TP SCH (11:01)
[2017-11-20] MEDS: LISINOPRIL 10 MG TABLET (FP) PO SCH (11:01)
[2017-11-20] MEDS: ARIPiprazole 10 MG TABLET PO SCH (11:01)
[2017-11-20] MEDS: chlordiazePOXIDE 5 MG CAPSULE PO SCH ×2 (17:06→22:02)
[2017-11-20] MEDS: INSULIN DETEMIR 100 UNITS/ML MDV SQ SCH (22:00)
[2017-11-20] MEDS: THIAMINE HCL 100 MG TABLET (FP) PO SCH (22:02)
[2017-11-20] MEDS: ZOLPIDEM TARTRATE 10 MG TABLET (PARK CARE ONLY) PO PRN (22:03)
[2017-11-20] MEDS: LIDOCAINE PATCH REMOVAL MC SCH (23:11)
[2017-11-21] MEDS: IBUPROFEN 400 MG TABLET (FP) PO PRN (03:04)
[2017-11-21] MEDS: chlordiazePOXIDE 5 MG CAPSULE PO SCH ×2 (05:50→10:34)
[2017-11-21] MEDS: metFORMIN HCL 500 MG TABLET (FP) PO SCH (06:37)
[2017-11-21] MEDS: ARIPiprazole 10 MG TABLET PO SCH (10:34)
[2017-11-21] MEDS: PRENATAL VITAMINS W/ FOLIC ACID TABLET (FP) PO SCH (10:34)
[2017-11-21] MEDS: LISINOPRIL 10 MG TABLET (FP) PO SCH (10:34)
[2017-11-21] MEDS: LIDOCAINE 5% TOPICAL PATCH TP SCH (10:34)
[2017-11-21] MEDS: ASPIRIN 81 MG CHEWABLE TABLETS PO SCH (10:34)
--- NOTE | 2017-11-21 11:04 | PN ---
BHS Progress Note (SOAP) Subjective: anxiety sweats Objective: 11/21/17 11:03 Vital Signs Temperature 97.7 F 11/21/17 06:00 Pulse Rate 96 H 11/21/17 06:00 Respiratory Rate 18 11/21/17 06:00 Blood Pressure 111/57 11/21/17 06:00 O2 Sat by Pulse Oximetry (%) aaox3 ambulating no acute distress Assessment: 11/21/17 11:03 withdrawal sx Plan: continue detox increase fluids d/c in am
[2017-11-21 14:06] VITALS: BP 142/81; PULSE 91; TEMP 97.9
--- NOTE | 2017-11-21 14:21 | PN ---
BHS Progress Note Note: pt feels fine no withdrawals noted and want to go to rehab today. pt is not exhibiting any s/s of withdrawals and will be d/c today to [facility].
--- NOTE | 2017-11-21 14:23 | DS ---
[facility] Detox Discharge Summary Admission Date: 11/18/17 Discharge Date: 11/21/17 - History Present History: Alcohol Dependence, Cannabis Dependence, Cocaine Dependence - Physical Exam Results Vital Signs: Vital Signs Temperature 97.9 F 11/21/17 14:05 Pulse Rate 91 H 11/21/17 14:05 Respiratory Rate 16 11/21/17 14:05 Blood Pressure 142/81 11/21/17 14:05 O2 Sat by Pulse Oximetry (%) - Treatment Hospital Course: Detox Protocol Followed, Detoxed Safely, Responded well, Discharged Condition Good, Rehab Referral Accepted - Medication Discharge Medications: Ambulatory Orders Lisinopril 10 mg PO DAILY #30 tablet 10/27/15 Aripiprazole [Abilify -] 10 mg PO HS 08/21/16 Insulin Glargine,Hum.rec.anlog [Lantus Solostar PEN (NF)] 35 units SQ HS metFORMIN HCL [Glucophage -] 500 mg PO BID 08/21/16 Zolpidem Tartrate [Ambien] 10 mg PO HS #14 tablet MDD 10 08/22/16 traZODone HCL [Desyrel -] 100 mg PO HS 01/04/17 Aspirin [ASA -] 81 mg PO DAILY 11/18/17 Folic Acid - 1 mg PO DAILY 11/18/17 Aripiprazole [Abilify -] 10 mg PO DAILY #30 tablet 11/19/17 - Diagnosis (1) DM type 2 (diabetes mellitus, type 2) Current Visit: Yes Status: Chronic Qualifiers: Diabetes mellitus complication status: without complication (2) Anxiety disorder Current Visit: No Status: Acute (3) Alcohol dependence with uncomplicated withdrawal Current Visit: Yes Status: Chronic (4) Bipolar disorder Current Visit: No Status: Chronic (5) Bipolar disorder, curr episode mixed, severe, with psychotic features Current Visit: No Status: Chronic (6) Cannabis dependence Current Visit: Yes Status: Chronic (7) Cocaine dependence Current Visit: Yes Status: Chronic (8) Drug-induced mood disorder Current Visit: No Status: Chronic (9) Hypertension Current Visit: No Status: Chronic Qualifiers: Hypertension type: essential hypertension Qualified Code(s): I10 - Essential (primary) hypertension (10) Insomnia Current Visit: No Status: Chronic (11) Nicotine dependence Current Visit: Yes Status: Chronic Qualifiers: Nicotine product type: cigarettes Substance use status: uncomplicated Qualified Code(s): F17.210 - Nicotine dependence, cigarettes, uncomplicated (12) Obesity Current Visit: No Status: Chronic Qualifiers: Obesity type: due to excess calories - AMA Did Patient Leave Against Medical Advice: No (rehab [facility])
[2017-11-21] MEDS ORDERED: chlordiazePOXIDE HCL 10 MG CAPSULE PO SCH (17:00)
== END 2017-11-21 15:15 | disposition other institution (70) | DRG 774 ==
LOC: YASAS 11:25 → Y6N 13:05
PROVIDERS: ADMIT Internal Medicine; ATTEND Internal Medicine
PROC: HZ2ZZZZ Detoxification Services for Substance Abuse Treatment (ICD-10-PCS; principal; 2017-11-18)
DX: F10.230 Alcohol dependence with withdrawal, uncomplicated (principal); F14.20 Cocaine dependence, uncomplicated; F12.20 Cannabis dependence, uncomplicated; F17.210 Nicotine dependence, cigarettes, uncomplicated; F41.9 Anxiety disorder, unspecified; F31.64 Bipolar disorder, current episode mixed, severe, with psychotic features; F19.24 Other psychoactive substance dependence with psychoactive substance-induced mood disorder; I10 Essential (primary) hypertension; E11.9 Type 2 diabetes mellitus without complications; G47.00 Insomnia, unspecified; E66.9 Obesity, unspecified; Z68.32 Body mass index [BMI] 32.0-32.9, adult; Z91.14 Patient's other noncompliance with medication regimen
CPT/HCPCS: 36415; 80053; 81003; 81015; 82962; 85027; 86593; 87389; 93005; 93010

== ENCOUNTER 2017-11-21 15:36 | Inpatient (IN) | payer OTHER ==
--- NOTE | 2017-11-21 15:56 | HP ---
Psychiatrist Admission - Data Date of interview: 11/21/17 Admission source: [address] [place] [address] Identifying data: This is the second admission to [address] [place] [address] for this 52 yo AA single female mother of 1 son,unemployed, supported by PA. Medical History: DM,H/O Uterine Fibroids. Vital Signs: Vital Signs - 24 hr 11/21/17 15:45 Temperature 97.7 F Pulse Rate 93 H Respiratory 18 Rate Blood Pressure 129/84 Allergies/Adverse Reactions: Allergies Allergy/AdvReac Type Severity Reaction Status Date / Time No Known Allergies Allergy Verified 11/18/17 12:46 Date of last physical exam: 11/18/17 Concur with the findings of this exam: Yes - Substance Abuse/Tx History Hx Alcohol Use: Yes (drinking since 15 yo) Hx Substance Use: Yes (crack/cocaine since 22 yo,marijuana since 48 yo) Substance Use Type: Alcohol, Cocaine, Marijuana Hx Substance Use Treatment: Yes (completed this program in 2013.) Mental Status Exam - Mental Status Exam Alert and Oriented to: Time, Place, Person Cognitive Function: Grossly Intact Patient Appearance: Well Groomed Mood: Euthymic Affect: Mood Congruent Patient Behavior: Cooperative Speech Pattern: Clear Voice Loudness: Normal Thought Process: Goal Oriented Thought Disorder: Not Present Hallucinations: Denies Suicidal Ideation: Denies Homicidal Ideation: Denies Insight/Judgement: Fair Sleep: Fair Appetite: Good Muscle strength/Tone: Normal Gait/Station: Normal Psychiatric Findings - Problem List ([place] 1, 2,3) (1) Bipolar disorder Current Visit: Yes Status: Chronic (2) Cannabis dependence Current Visit: Yes Status: Chronic (3) Cocaine dependence Current Visit: Yes Status: Chronic (4) DM type 2 (diabetes mellitus, type 2) Current Visit: Yes Status: Chronic Qualifiers: Diabetes mellitus complication status: without complication (5) Alcohol dependence Current Visit: Yes Status: Chronic (6) Hypertension Current Visit: Yes Status: Chronic Qualifiers: Hypertension type: essential hypertension Qualified Code(s): I10 - Essential (primary) hypertension (7) Nicotine dependence Current Visit: Yes Status: Chronic Qualifiers: Nicotine product type: cigarettes Substance use status: uncomplicated Qualified Code(s): F17.210 - Nicotine dependence, cigarettes, uncomplicated (8) Obesity Current Visit: Yes Status: Chronic Qualifiers: Obesity type: due to excess calories - Initial Treatment Plan Initial Treatment Plan: Continue current medications.
[2017-11-21] MEDS ORDERED: MAG HYDROX/AL HYDROX/SIMETH 30 ML UNIT-DOSE CUP PO PRN (16:11)
[2017-11-21] MEDS ORDERED: ACETAMINOPHEN 325 MG TABLET (FP) PO PRN (16:11)
[2017-11-21] MEDS ORDERED: MAGNESIUM HYDROX 2400MG/30ML ORAL SUSPENSION 30 ML CUP PO PRN (16:11)
[2017-11-21] MEDS ORDERED: MAGNESIUM CITRATE 300 ML BOTTLE PO PRN (16:11)
[2017-11-21] MEDS ORDERED: LOPERAMIDE HCL 2 MG CAPSULE PO PRN (16:11)
[2017-11-21] MEDS ORDERED: IBUPROFEN 400 MG TABLET (FP) PO PRN (16:11)
[2017-11-21] MEDS ORDERED: P-EPHED 60MG/TRIPROLIDI 2.5MG TABLET PO PRN (16:11)
[2017-11-21] MEDS ORDERED: MENTHOL/PHENOL 1 EACH UD MM PRN (16:11)
[2017-11-21] MEDS ORDERED: guaiFENesin/D-METHORPHAN HB 10 ML UNIT-DOSE CUPS PO PRN (16:11)
[2017-11-21] MEDS ORDERED: METHOCARBAMOL 500 MG TABLET PO PRN (16:12)
--- NOTE | 2017-11-21 16:17 | HP ---
DIANE SHIELDS Rehab Assess/Revision - Admission History Admitted to Rehab from: [facility] Date of Admission to Rehab: 11/21/2017 - Vital signs Vital Signs: Vital Signs Period Temp Pulse Resp BP Sys/Lr Pulse Ox Last 24 Hr 97.7 F 93 18 129/84 - Findings Detox History & Physical reviewed: Yes Concur with findings: Yes Comments/Additional Findings: PATIENT'S MEDICAL / MEDICATION HISTORY REVIEWED PRIOR TO DISCHARGE FROM DETOX UNIT. PATIENT DISCHARGED FROM DETOX UNIT TO BE TAKEN TO REHAB UNIT IN STABLE MEDICAL CONDITION. Inpatient Rehab Admission - Initial Determination Are CD services needed?: Yes Free of communicable disease: Yes Not in need of hospitalization: Yes - Rehab Admission Criteria Previous failed treatment: Yes Comorbidities: Yes Patient is meeting Inpatient Rehab admission criteria:: Yes
[2017-11-21] MEDS: metFORMIN HCL 500 MG TABLET (FP) PO SCH (17:05)
[2017-11-21] MEDS: INSULIN DETEMIR 100 UNITS/ML MDV SQ SCH (21:48)
[2017-11-21] MEDS: THIAMINE HCL 100 MG TABLET (FP) PO SCH (21:48)
[2017-11-22] MEDS: metFORMIN HCL 500 MG TABLET (FP) PO SCH ×2 (06:19→17:22)
[2017-11-22] MEDS: LISINOPRIL 10 MG TABLET (FP) PO SCH (10:32)
[2017-11-22] MEDS: ARIPiprazole 10 MG TABLET PO SCH (10:32)
[2017-11-22] MEDS: PRENATAL VITAMINS W/ FOLIC ACID TABLET (FP) PO SCH (10:32)
[2017-11-22] MEDS: ASPIRIN 81 MG CHEWABLE TABLETS PO SCH (10:32)
[2017-11-22] MEDS: THIAMINE HCL 100 MG TABLET (FP) PO SCH (21:40)
[2017-11-22] MEDS: INSULIN DETEMIR 100 UNITS/ML MDV SQ SCH (21:42)
[2017-11-23] MEDS: metFORMIN HCL 500 MG TABLET (FP) PO SCH ×2 (06:30→17:02)
[2017-11-23] MEDS: PRENATAL VITAMINS W/ FOLIC ACID TABLET (FP) PO SCH (10:14)
[2017-11-23] MEDS: ARIPiprazole 10 MG TABLET PO SCH (10:14)
[2017-11-23] MEDS: ASPIRIN 81 MG CHEWABLE TABLETS PO SCH (10:14)
[2017-11-23] MEDS: LISINOPRIL 10 MG TABLET (FP) PO SCH (10:14)
[2017-11-23] MEDS: INSULIN DETEMIR 100 UNITS/ML MDV SQ SCH (21:39)
[2017-11-23] MEDS: THIAMINE HCL 100 MG TABLET (FP) PO SCH (21:40)
[2017-11-24] MEDS: metFORMIN HCL 500 MG TABLET (FP) PO SCH ×2 (06:55→16:58)
[2017-11-24] MEDS: LISINOPRIL 10 MG TABLET (FP) PO SCH (10:09)
[2017-11-24] MEDS: ARIPiprazole 10 MG TABLET PO SCH (10:09)
[2017-11-24] MEDS: PRENATAL VITAMINS W/ FOLIC ACID TABLET (FP) PO SCH (10:09)
[2017-11-24] MEDS: ASPIRIN 81 MG CHEWABLE TABLETS PO SCH (10:09)
[2017-11-24] MEDS: THIAMINE HCL 100 MG TABLET (FP) PO SCH (21:40)
[2017-11-24] MEDS: INSULIN DETEMIR 100 UNITS/ML MDV SQ SCH (21:43)
[2017-11-25] MEDS: metFORMIN HCL 500 MG TABLET (FP) PO SCH (06:36)
[2017-11-25 07:03] VITALS: TEMP 98.2
[2017-11-25] MEDS: ASPIRIN 81 MG CHEWABLE TABLETS PO SCH (09:04)
[2017-11-25] MEDS: ARIPiprazole 10 MG TABLET PO SCH (09:04)
[2017-11-25] MEDS: LISINOPRIL 10 MG TABLET (FP) PO SCH (09:04)
[2017-11-25] MEDS: PRENATAL VITAMINS W/ FOLIC ACID TABLET (FP) PO SCH (09:04)
[2017-11-25 10:10] VITALS: BP 132/85; PULSE 103
== END 2017-11-25 09:05 | disposition left against medical advice (07) | DRG 770 ==
LOC: YASAS 15:36 → Y3E 15:37
PROVIDERS: ADMIT Psychiatry & Neurology Psychiatry; ATTEND Psychiatry & Neurology Psychiatry
PROC: HZ42ZZZ Group Counseling for Substance Abuse Treatment, Cognitive-Behavioral (ICD-10-PCS; principal; 2017-11-21)
DX: F10.20 Alcohol dependence, uncomplicated (principal); F14.20 Cocaine dependence, uncomplicated; F12.20 Cannabis dependence, uncomplicated; F17.210 Nicotine dependence, cigarettes, uncomplicated; F31.9 Bipolar disorder, unspecified; I10 Essential (primary) hypertension; E11.9 Type 2 diabetes mellitus without complications
CPT/HCPCS: 82962

== ENCOUNTER 2018-01-12 12:06 | Inpatient (IN) | payer OTHER ==
--- NOTE | 2018-01-12 15:21 | HP ---
CIWA Score - CIWA Score Nausea/Vomitin-Mild Nausea/No Vomiting Muscle Tremors: 4-Moderate,w/Arms Extend Anxiety: 4-Mod. Anxious/Guarded Agitation: 4-Moderately Restless Paroxysmal Sweats: 1-Minimal Palms Moist Orientation: 0-Oriented Tacttile Disturbances: 1-Very Mild Itch/Numbness Auditory Disturbances: 0-None Visual Disturbances: 0-None Headache: 1-Very Mild CIWA-Ar Total Score: 16 Admission ROS BHS - HPI Chief Complaint: withdrawal sx Allergies/Adverse Reactions: Allergies Allergy/AdvReac Type Severity Reaction Status Date / Time No Known Allergies Allergy Verified 01/12/18 15:20 History of Present Illness: 52 years old female with long history of alcohol nicotine dependence has diabetes ii hypertension and positive ppd bipolar ii is admitted to detox Exam Limitations: No Limitations - Ebola screening Have you traveled outside of the country in the last 21 days: No Have you had contact with anyone from an Ebola affected area: No Have you been sick,other than usual withdrawal symptoms: No Do you have a fever: No - Review of Systems Constitutional: Changes in sleep, Weight Stable EENT: reports: No Symptoms Reported Respiratory: reports: Productive cough (yellowish) Cardiac: reports: No Symptoms Reported GI: reports: Nausea, Poor Fluid Intake, Indigestion, Abdominal cramping : reports: No Symptoms Reported Musculoskeletal: reports: Back Pain, Joint Pain, Muscle Pain, Neck Pain Integumentary: reports: No Symptoms Reported Neuro: reports: Tremors Endocrine: reports: No Symptoms Reported Hematology: reports: No Symptoms Reported Psychiatric: reports: Judgement Intact, Orientated x3, Anxious, Depressed Other Systems: Reviewed and Negative Patient History - Patient Medical History Hx Anemia: No Hx Asthma: No Hx Chronic Obstructive Pulmonary Disease (COPD): No Hx Cancer: No Hx Cardiac Disorders: No Hx Congestive Heart Failure: No Hx Hypertension: Yes Hx Hypercholesterolemia: No Hx Pacemaker: No HX Cerebrovascular Accident: No Hx Seizures: No Hx Dementia: No Hx Diabetes: Yes Hx Gastrointestinal Disorders: Yes Hx Liver Disease: No Hx Genitourinary Disorders: No Hx Sexually Transmitted Disorders: No Hx Renal Disease (ESRD): No Hx Thyroid Disease: No Hx Human Immunodeficiency Virus (HIV): No (last 12/20 negative) Hx Hepatitis C: No Hx Depression: No (Bipolar) Hx Suicide Attempt: No Hx Bipolar Disorder: Yes (abilify use not complaint ) Hx Schizophrenia: No - Patient Surgical History Past Surgical History: Yes Hx Neurologic Surgery: No Hx Cataract Extraction: No Hx Cardiac Surgery: No Hx Lung Surgery: No Hx Breast Surgery: No Hx Breast Biopsy: No Hx Abdominal Surgery: No Hx Appendectomy: No Hx Cholecystectomy: No Hx Genitourinary Surgery: No Hx Section: No Hx Orthopedic Surgery: No Hx Hysterectomy: No Other Surgical History: SX FOR PILONIDAL CYST IN 1986 Anesthesia Reaction: No - PPD History Previous Implant?: Yes Documented Results: Positive w/proof Implanted On Prior [facility] Admission?: No PPD to be Administered?: No - Reproductive History Patient is a Female of Child Bearing Age (11 -55 yrs old): Yes Last Menstrual Period: 11/17/17 Patient : No - Smoking Cessation Smoking history: Current every day smoker Have you smoked in the past 12 months: Yes Aproximately how many cigarettes per day: 15 Hx Chewing Tobacco Use: No Initiated information on smoking cessation: Yes 'Breaking Loose' booklet given: 01/12/18 - Substance & Tx. History Hx Alcohol Use: Yes Hx Substance Use: Yes Substance Use Type: Alcohol, Cocaine Hx Substance Use Treatment: Yes (11/2017 [facility] Family Disease History - Family Disease History Family Disease History: Heart Disease: Mother (alcohol), Other: Father (WAS AN ALCOHOLIC BEFORE AND STOPPED 8 YRS. AGO), Mother Admission Physical Exam S - Vital Signs Vital Signs: Vital Signs - 24 hr 01/12/18 12:23 Temperature 96.3 F L Pulse Rate 108 H Respiratory 18 Rate Blood Pressure 138/87 - Physical General Appearance: Yes: Moderate Distress, Tremorous, Irritable, Sweating, Anxious HEENTM: Yes: Hearing grossly Normal, Normocephalic, Normal Voice Respiratory: Yes: Chest Non-Tender, No Respiratory Distress, No Accessory Muscle Use, Expiration, Hyperresonant Neck: Yes: Supple, Trachea in good position Breast: Yes: Within Normal Limits, Breasts Symetrical, No Discharge Cardiology: Yes: Regular Rhythm, Regular Rate, S1, S2 Abdominal: Yes: Normal Bowel Sounds, Non Tender, Soft Genitourinary: Yes: Within Normal Limits Back: Yes: Within Normal Limits, Normal Inspection Musculoskeletal: Yes: full range of Motion, Gait Steady, Back pain, Muscle Pain Extremities: Yes: Normal Inspection, Normal Range of Motion, Non-Tender, Tremors Neurological: Yes: Fully Oriented, Alert, Motor Strength 5/5, Normal Response, Depressed Affect Integumentary: Yes: Warm Lymphatic: Yes: Within Normal Limits - Diagnostic (1) GERD (gastroesophageal reflux disease) Current Visit: Yes Status: Chronic Qualifiers: Esophagitis presence: without esophagitis Qualified Code(s): K21.9 - Gastro -esophageal reflux disease without esophagitis (2) Positive PPD, treated Current Visit: No Status: Resolved (3) Alcohol dependence with uncomplicated withdrawal Current Visit: Yes Status: Acute (4) DM type 2 (diabetes mellitus, type 2) Current Visit: Yes Status: Chronic Qualifiers: Diabetes mellitus halfway insulin use: with halfway use Diabetes mellitus complication status: without complication Qualified Code(s): E11.9 - Type 2 diabetes mellitus without complications; Z79.4 - manager long term care (current) use of insulin; Z79.4 - manager long term care (current) use of insulin; Z79.4 - manager long term care ( current) use of insulin; Z79.4 - manager long term care (current) use of insulin (5) Hypertension Current Visit: Yes Status: Chronic Qualifiers: Hypertension type: essential hypertension Qualified Code(s): I10 - Essential (primary) hypertension (6) Nicotine dependence Current Visit: Yes Status: Acute Qualifiers: Nicotine product type: cigarettes Substance use status: in withdrawal Qualified Code(s): F17.213 - Nicotine dependence, cigarettes, with withdrawal (7) Obesity Current Visit: No Status: Chronic Qualifiers: Obesity type: due to excess calories Cleared for Admission S - Detox or Rehab [facility] Level of Care: Medically Managed Detox Regimen/Protocol: Librium [facility] Breath Alcohol Content Breath Alcohol Content: 0 Urine Pregancy Test - Result Urine Test Results: Negative- NO Line Present Urine Drug Screen - Control Is Test Valid: Yes - Results Drug Screen Negative: No Urine Drug Screen Results: DILEEP-Cocaine
[2018-01-12] MEDS ORDERED: chlordiazePOXIDE HCL 25 MG CAPSULE PO PRN (15:37)
[2018-01-12] MEDS ORDERED: MAG HYDROX/AL HYDROX/SIMETH 30 ML UNIT-DOSE CUP PO PRN (15:37)
[2018-01-12] MEDS ORDERED: MENTHOL/PHENOL 1 EACH UD MM PRN (15:37)
[2018-01-12] MEDS ORDERED: MAGNESIUM HYDROX 2400MG/30ML ORAL SUSPENSION 30 ML CUP PO PRN (15:37)
[2018-01-12] MEDS ORDERED: guaiFENesin/D-METHORPHAN HB 10 ML UNIT-DOSE CUPS PO PRN (15:37)
[2018-01-12] MEDS ORDERED: NICOTINE 21 MG/24 HOURS TOPICAL PATCH TD PRN (15:37)
[2018-01-12] MEDS ORDERED: LOPERAMIDE HCL 2 MG CAPSULE PO PRN (15:37)
[2018-01-12] MEDS ORDERED: P-EPHED 60MG/TRIPROLIDI 2.5MG TABLET PO PRN (15:37)
[2018-01-12] MEDS ORDERED: NICOTINE POLACRILEX 4 MG GUM BC PRN (15:37)
[2018-01-12] MEDS ORDERED: MAGNESIUM CITRATE 300 ML BOTTLE PO PRN (15:37)
[2018-01-12] MEDS ORDERED: ALBUTEROL SO4 18 GM HFA INHALER IH PRN (15:45)
[2018-01-12] MEDS: INSULIN SLIDING SCALE (NOVOLOG) 1 VIAL SQ SCH ×2 (17:42→22:18)
[2018-01-12] MEDS: metFORMIN HCL 500 MG TABLET (FP) PO SCH (18:01)
[2018-01-12] MEDS ORDERED: MELATONIN 5 MG TABLETS PO PRN (22:00)
[2018-01-12] MEDS: chlordiazePOXIDE HCL 25 MG CAPSULE PO SCH (22:16)
[2018-01-12] MEDS: THIAMINE HCL 100 MG TABLET (FP) PO SCH (22:16)
[2018-01-12] MEDS: RANITIDINE HCL 150 MG TABLET (FP) PO SCH (22:16)
[2018-01-12] MEDS: INSULIN DETEMIR 100 UNITS/ML MDV SQ SCH (22:17)
[2018-01-13] MEDS: chlordiazePOXIDE HCL 25 MG CAPSULE PO SCH ×4 (06:03→22:11)
[2018-01-13] MEDS: metFORMIN HCL 500 MG TABLET (FP) PO SCH ×2 (06:05→17:08)
[2018-01-13] MEDS: INSULIN SLIDING SCALE (NOVOLOG) 1 VIAL SQ SCH ×4 (07:04→22:39)
--- NOTE | 2018-01-13 09:57 | CONSULT ---
[facility] Psychiatric Consult - Data Date of interview: 01/13/18 Admission source: [facility] Identifying data: Pt. is a 52 year old single female, unemployed, living in a assisted, and supported by public financial assistance. This is one of multiple admissions for patient. Pt. admitted for alcohol and cocaine dependence. Substance Abuse History: Smoking Cessation. Smoking history: Current every day smoker. Have you smoked in the past 12 months: Yes. Aproximately how many cigarettes per day: 15. Hx Chewing Tobacco Use: No. Initiated information on smoking cessation: Yes. 'Breaking Loose' booklet given: 01/12/18. - Substance & Tx. History. Hx Alcohol Use: Yes. Hx Substance Use: Yes. Substance Use Type : Alcohol, Cocaine. Hx Substance Use Treatment: Yes (11/2017 [facility]) Medical History: Hypertension Psychiatric History: Pt. reports multiple psychiatric hospitalizations, most recently hospitalized five years ago at [facility]. Pt. currently resides at the [facility] in the [place] and reports seeing a psychiatrist at the assisted. Pt. reports a diagnosis of bipolar disorder and reports being prescribed abilify 10mg, trazodone 100mg and ambien 10mg. Pt. denies h/o suicide attempt. Pt. currently denies suicidal and homicidal ideation. Physical/Sexual Abuse/Trauma History: Denies. Mental Status Exam - Mental Status Exam Alert and Oriented to: Time, Place, Person Cognitive Function: Good Patient Appearance: Well Groomed Mood: Withdrawn Affect: Mood Congruent Patient Behavior: Fatigued, Guarded, Asleep (Able to be awake to complete interview. ) Speech Pattern: Delayed Voice Loudness: Moderately Soft/Quiet Thought Process: Goal Oriented Thought Disorder: Not Present Hallucinations: Denies Suicidal Ideation: Denies Homicidal Ideation: Denies Insight/Judgement: Poor Sleep: Poorly Appetite: Fair Muscle strength/Tone: Normal Gait/Station: Other (Did not observe patient's gait.) Psychiatric Findings - Problem List ([place] 1, 2,3) (1) Alcohol dependence with uncomplicated withdrawal Current Visit: Yes Status: Acute (2) Nicotine dependence Current Visit: Yes Status: Acute Qualifiers: Nicotine product type: cigarettes Substance use status: in withdrawal Qualified Code(s): F17.213 - Nicotine dependence, cigarettes, with withdrawal (3) Alcohol dependence Current Visit: Yes Status: Chronic (4) Bipolar disorder Current Visit: Yes Status: Chronic (5) Cocaine dependence Current Visit: Yes Status: Acute (6) Insomnia Current Visit: Yes Status: Acute - Initial Treatment Plan Initial Treatment Plan: Psychoeducation provided. Abilify 10mg qhs + Ambien 10mg qhs prn ordered for insomnia. Benefits and side effects discussed. Pt. made aware of the risk of parasomnia. Verbal consent given. Will continue to monitor.
[2018-01-13] MEDS ORDERED: LISINOPRIL 10 MG TABLET (FP) PO SCH (10:00)
[2018-01-13] MEDS: LISINOPRIL 10 MG TABLET (FP) PO SCH (10:07)
[2018-01-13] MEDS: PRENATAL VITAMINS W/ FOLIC ACID TABLET (FP) PO SCH (10:07)
[2018-01-13] MEDS: RANITIDINE HCL 150 MG TABLET (FP) PO SCH ×2 (10:07→22:11)
[2018-01-13] MEDS: ASPIRIN 81 MG CHEWABLE TABLETS PO SCH (10:07)
[2018-01-13] MEDS: ACETAMINOPHEN 325 MG TABLET (FP) PO PRN ×2 (10:08→22:12)
[2018-01-13 10:21] LABS: URINE APPEARANCE CLEAR; URINE BILIRUBIN NEGATIVE (<2.0 mg/dL); URINE BLOOD 1+ (NEGATIVE); URINE COLOR LTYELLOW; URINE GLUCOSE (UA) NEGATIVE (NEGATIVE); URINE KETONE NEGATIVE (NEGATIVE); URINE LEUK ESTERASE NEGATIVE (NEGATIVE); URINE NITRITE NEGATIVE (NEGATIVE); URINE PROTEIN NEGATIVE (NEGATIVE); URINE UROBILINOGEN NEGATIVE mg/dL (0.2-1.0)
[2018-01-13 10:26] LABS: EPI CELLS RARE /HPF (FEW); URINE MUCUS RARE
[2018-01-13 10:35] LABS: HEMATOCRIT 41.2 % (32.4-45.2); HEMOGLOBIN 14.7 GM/dL (10.7-15.3); MCH 30.9 pg (25.7-33.7); MCHC 35.8 g/dl (32.0-36.0); MEAN CELL VOLUME 86.4 fl (80-96); MEAN PLT VOLUME 8.5 fl (7.5-11.1); PLATELET COUNT 273 K/MM3 (134-434); RBC 4.77 M/mm3 (3.60-5.2); RDW 15.8 % (11.6-15.6); WHITE BLOOD COUNT 7.3 K/mm3 (4.0-10.0)
--- NOTE | 2018-01-13 10:43 | EKG ---
Test Reason : Blood Pressure : / mmHG Vent. Rate : 100 BPM Atrial Rate : 100 BPM P-R Int : 152 ms QRS Dur : 072 ms QT Int : 348 ms P-R-T Axes : 067 039 067 degrees QTc Int : 448 ms NORMAL SINUS RHYTHM NORMAL ECG WHEN COMPARED WITH ECG OF 18-NOV-2017 14:57, NONSPECIFIC T WAVE ABNORMALITY NOW EVIDENT IN LATERAL LEADS Confirmed by MD Ruben, Cesar ([id number]) on 01/13/2018 10:42:42 AM Referred By: Confirmed By:Cesar Miranda MD
[2018-01-13 10:50] LABS: ALBUMIN 3.7 g/dl (3.4-5.0); ANION GAP 6 (8-16); BLOOD UREA NITROGEN 7 mg/dL (7-18); CHLORIDE 106 mmol/L (98-107); CO2 27 mmol/L (21-32); GLUCOSE,RANDOM 132 mg/dL (74-106); POTASSIUM 4.1 mmol/L (3.5-5.1); SODIUM 139 mmol/L (136-145)
[2018-01-13 10:53] LABS: ALK PHOS 117 U/L (45-117); BILIRUBIN,TOTAL 0.4 mg/dL (0.2-1.0); CREATININE 0.8 mg/dL (0.55-1.02); SGOT/AST 18 U/L (15-37); SGPT/ALT 25 U/L (12-78); TOT PROT 7.5 g/dl (6.4-8.2)
--- NOTE | 2018-01-13 11:36 | PN ---
S CIWA - CIWA Score Nausea/Vomitin-Mild Nausea/No Vomiting Muscle Tremors: 4-Moderate,w/Arms Extend Anxiety: 4-Mod. Anxious/Guarded Agitation: 3 Paroxysmal Sweats: 1-Minimal Palms Moist Orientation: 0-Oriented Tacttile Disturbances: 1-Very Mild Itch/Numbness Auditory Disturbances: 0-None Visual Disturbances: 0-None Headache: 1-Very Mild CIWA-Ar Total Score: 15 BHS Progress Note (SOAP) Subjective: sweat tremor anxiety mild headache Objective: 01/13/18 11:37 Vital Signs Temperature 97.9 F 01/13/18 10:50 Pulse Rate 83 01/13/18 10:50 Respiratory Rate 18 01/13/18 10:50 Blood Pressure 127/78 01/13/18 10:50 O2 Sat by Pulse Oximetry (%) Laboratory Last Values WBC 7.3 K/mm3 (4.0-10.0) 01/13/18 06:00 RBC 4.77 M/mm3 (3.60-5.2) 01/13/18 06:00 Hgb 14.7 GM/dL (10.7-15.3) 01/13/18 06:00 Hct 41.2 % (32.4-45.2) 01/13/18 06:00 MCV 86.4 fl (80-96) 01/13/18 06:00 MCH 30.9 pg (25.7-33.7) 01/13/18 06:00 MCHC 35.8 g/dl (32.0-36.0) 01/13/18 06:00 RDW 15.8 % (11.6-15.6) H 01/13/18 06:00 Plt Count 273 K/MM3 (134-434) D 01/13/18 06:00 MPV 8.5 fl (7.5-11.1) 01/13/18 06:00 Sodium 139 mmol/L (136-145) 01/13/18 06:00 Potassium 4.1 mmol/L (3.5-5.1) 01/13/18 06:00 Chloride 106 mmol/L (98-107) 01/13/18 06:00 Carbon Dioxide 27 mmol/L (21-32) 01/13/18 06:00 Anion Gap 6 (8-16) L 01/13/18 06:00 BUN 7 mg/dL (7-18) 01/13/18 06:00 Creatinine 0.8 mg/dL (0.55-1.02) 01/13/18 06:00 Creat Clearance w eGFR > 60 (>60) 01/13/18 06:00 POC Glucometer 121 UNITS (80-120) 01/13/18 06:02 Random Glucose 132 mg/dL (74-106) H 01/13/18 06:00 Calcium 9.0 mg/dL (8.5-10.1) 01/13/18 06:00 Total Bilirubin 0.4 mg/dL (0.2-1.0) D 01/13/18 06:00 AST 18 U/L (15-37) 01/13/18 06:00 ALT 25 U/L (12-78) 01/13/18 06:00 Alkaline Phosphatase 117 U/L (45-117) 01/13/18 06:00 Total Protein 7.5 g/dl (6.4-8.2) 01/13/18 06:00 Albumin 3.7 g/dl (3.4-5.0) 01/13/18 06:00 Urine Color Ltyellow 01/13/18 08:15 Urine Appearance Clear 01/13/18 08:15 Urine pH 6.0 (5.0-8.0) 01/13/18 08:15 Ur Specific [place] 1.011 (1.001-1.035) 01/13/18 08:15 Urine Protein Negative (NEGATIVE) 01/13/18 08:15 Urine Glucose (UA) Negative (NEGATIVE) 01/13/18 08:15 Urine Ketones Negative (NEGATIVE) 01/13/18 08:15 Urine Blood 1+ (NEGATIVE) H 01/13/18 08:15 Urine Nitrite Negative (NEGATIVE) 01/13/18 08:15 Urine Bilirubin Negative (<2.0 mg/dL) 01/13/18 08:15 Urine Urobilinogen Negative mg/dL (0.2-1.0) 01/13/18 08:15 Ur Leukocyte Esterase Negative (NEGATIVE) 01/13/18 08:15 Urine WBC (Auto) <1 /hpf (3-5) 01/13/18 08:15 Urine RBC (Auto) 1 /hpf (0-3) 01/13/18 08:15 Ur Epithelial Cells Rare /HPF (FEW) 01/13/18 08:15 Urine Mucus Rare 01/13/18 08:15 labnoted Assessment: 01/13/18 11:37 withdrawal sx Plan: continue detox
[2018-01-13] MEDS: ARIPiprazole 10 MG TABLET PO SCH (22:11)
[2018-01-13] MEDS: ZOLPIDEM TARTRATE 10 MG TABLET (PARK CARE ONLY) PO PRN (22:11)
[2018-01-13] MEDS: THIAMINE HCL 100 MG TABLET (FP) PO SCH (22:11)
[2018-01-13] MEDS: INSULIN DETEMIR 100 UNITS/ML MDV SQ SCH (22:11)
[2018-01-14] MEDS: chlordiazePOXIDE HCL 25 MG CAPSULE PO SCH ×3 (05:14→16:57)
[2018-01-14] MEDS: metFORMIN HCL 500 MG TABLET (FP) PO SCH ×2 (07:50→16:57)
[2018-01-14] MEDS ORDERED: INSULIN (NOVOLOG) ASPART 100 UNITS/ML 10ML VIAL ONE (07:54)
[2018-01-14] MEDS: INSULIN SLIDING SCALE (NOVOLOG) 1 VIAL SQ SCH ×4 (07:55→22:53)
[2018-01-14] MEDS ORDERED: LIDOCAINE 5% TOPICAL PATCH TP SCH (10:00)
[2018-01-14] MEDS: RANITIDINE HCL 150 MG TABLET (FP) PO SCH ×2 (10:28→22:15)
[2018-01-14] MEDS: LISINOPRIL 10 MG TABLET (FP) PO SCH (10:28)
[2018-01-14] MEDS: ASPIRIN 81 MG CHEWABLE TABLETS PO SCH (10:28)
[2018-01-14] MEDS: PRENATAL VITAMINS W/ FOLIC ACID TABLET (FP) PO SCH (10:28)
--- NOTE | 2018-01-14 10:28 | PN ---
S CIWA - CIWA Score Nausea/Vomitin Muscle Tremors: 2 Anxiety: 2 Agitation: 2 Paroxysmal Sweats: 3 Orientation: 0-Oriented Tacttile Disturbances: 2-Mild Itch/Numbness/Burn Auditory Disturbances: 0-None Visual Disturbances: 0-None Headache: 0-None Present CIWA-Ar Total Score: 13 S Progress Note (SOAP) Subjective: interrupted sleep, sweats, lbp Objective: 01/14/18 10:26 Vital Signs Temperature 98.1 F 01/14/18 09:22 Pulse Rate 91 H 01/14/18 09:22 Respiratory Rate 18 01/14/18 09:22 Blood Pressure 126/74 01/14/18 09:22 O2 Sat by Pulse Oximetry (%) Laboratory Tests 01/12/18 01/12/18 01/12/18 06:00 15:41 20:40 WBC RBC Hgb Hct MCV MCH MCHC RDW Plt Count MPV Sodium Potassium Chloride Carbon Dioxide Anion Gap BUN Creatinine Creat Clearance w eGFR POC Glucometer 133 120 Random Glucose Calcium Total Bilirubin AST ALT Alkaline Phosphatase Total Protein Albumin Urine Color Urine Appearance Urine pH Ur Specific [place] Urine Protein Urine Glucose (UA) Urine Ketones Urine Blood Urine Nitrite Urine Bilirubin Urine Urobilinogen Ur Leukocyte Esterase Urine WBC (Auto) Urine RBC (Auto) Ur Epithelial Cells Urine Mucus HIV 1&2 Antibody Screen Negative HIV P24 Antigen Negative 01/13/18 01/13/18 01/13/18 06:00 06:00 06:02 WBC 7.3 RBC 4.77 Hgb 14.7 Hct 41.2 MCV 86.4 MCH 30.9 MCHC 35.8 RDW 15.8 H Plt Count 273 D MPV 8.5 Sodium 139 Potassium 4.1 Chloride 106 Carbon Dioxide 27 Anion Gap 6 L BUN 7 Creatinine 0.8 Creat Clearance w eGFR > 60 POC Glucometer 121 Random Glucose 132 H Calcium 9.0 Total Bilirubin 0.4 D AST 18 ALT 25 Alkaline Phosphatase 117 Total Protein 7.5 Albumin 3.7 Urine Color Urine Appearance Urine pH Ur Specific [place] Urine Protein Urine Glucose (UA) Urine Ketones Urine Blood Urine Nitrite Urine Bilirubin Urine Urobilinogen Ur Leukocyte Esterase Urine WBC (Auto) Urine RBC (Auto) Ur Epithelial Cells Urine Mucus HIV 1&2 Antibody Screen HIV P24 Antigen 01/13/18 01/13/18 01/13/18 08:15 11:50 16:23 WBC RBC Hgb Hct MCV MCH MCHC RDW Plt Count MPV Sodium Potassium Chloride Carbon Dioxide Anion Gap BUN Creatinine Creat Clearance w eGFR POC Glucometer 100 114 Random Glucose Calcium Total Bilirubin AST ALT Alkaline Phosphatase Total Protein Albumin Urine Color Ltyellow Urine Appearance Clear Urine pH 6.0 Ur Specific [place] 1.011 Urine Protein Negative Urine Glucose (UA) Negative Urine Ketones Negative Urine Blood 1+ H Urine Nitrite Negative Urine Bilirubin Negative Urine Urobilinogen Negative Ur Leukocyte Esterase Negative Urine WBC (Auto) <1 Urine RBC (Auto) 1 Ur Epithelial Cells Rare Urine Mucus Rare HIV 1&2 Antibody Screen HIV P24 Antigen 01/13/18 01/14/18 21:29 06:38 WBC RBC Hgb Hct MCV MCH MCHC RDW Plt Count MPV Sodium Potassium Chloride Carbon Dioxide Anion Gap BUN Creatinine Creat Clearance w eGFR POC Glucometer 145 387 Random Glucose Calcium Total Bilirubin AST ALT Alkaline Phosphatase Total Protein Albumin Urine Color Urine Appearance Urine pH Ur Specific [place] Urine Protein Urine Glucose (UA) Urine Ketones Urine Blood Urine Nitrite Urine Bilirubin Urine Urobilinogen Ur Leukocyte Esterase Urine WBC (Auto) Urine RBC (Auto) Ur Epithelial Cells Urine Mucus HIV 1&2 Antibody Screen HIV P24 Antigen pt aox3 in nad , lying in bed Assessment: 01/14/18 10:27 withdrawal sx's lbp 01/14/18 10:27 Plan: cont. detox increase fluids lidocaine patch
[2018-01-14] MEDS ORDERED: LIDOCAINE PATCH REMOVAL MC SCH (22:00)
[2018-01-14] MEDS: INSULIN DETEMIR 100 UNITS/ML MDV SQ SCH (22:15)
[2018-01-14] MEDS: chlordiazePOXIDE 5 MG CAPSULE PO SCH (22:15)
[2018-01-14] MEDS: ZOLPIDEM TARTRATE 10 MG TABLET (PARK CARE ONLY) PO PRN (22:15)
[2018-01-14] MEDS: THIAMINE HCL 100 MG TABLET (FP) PO SCH (22:15)
[2018-01-14] MEDS: ARIPiprazole 10 MG TABLET PO SCH (22:15)
[2018-01-14 22:36] VITALS: TEMP 97.9
[2018-01-15] MEDS: chlordiazePOXIDE 5 MG CAPSULE PO SCH (05:42)
[2018-01-15] MEDS: metFORMIN HCL 500 MG TABLET (FP) PO SCH (06:13)
[2018-01-15] MEDS: INSULIN SLIDING SCALE (NOVOLOG) 1 VIAL SQ SCH (06:13)
[2018-01-15 06:25] VITALS: BP 129/88; PULSE 95
--- NOTE | 2018-01-15 09:08 | DS ---
[facility] Detox Discharge Summary Admission Date: 01/12/18 Discharge Date: 01/15/18 - History Present History: Alcohol Dependence - Physical Exam Results Vital Signs: Vital Signs Temperature 97.9 F 01/15/18 06:00 Pulse Rate 95 H 01/15/18 06:00 Respiratory Rate 18 01/15/18 06:00 Blood Pressure 129/88 01/15/18 06:00 O2 Sat by Pulse Oximetry (%) Pertinent Admission Physical Exam Findings: withdrawal sx Vital Signs Temperature 97.9 F 01/15/18 06:00 Pulse Rate 95 H 01/15/18 06:00 Respiratory Rate 18 01/15/18 06:00 Blood Pressure 129/88 01/15/18 06:00 O2 Sat by Pulse Oximetry (%) Laboratory Last Values WBC 7.3 K/mm3 (4.0-10.0) 01/13/18 06:00 RBC 4.77 M/mm3 (3.60-5.2) 01/13/18 06:00 Hgb 14.7 GM/dL (10.7-15.3) 01/13/18 06:00 Hct 41.2 % (32.4-45.2) 01/13/18 06:00 MCV 86.4 fl (80-96) 01/13/18 06:00 MCH 30.9 pg (25.7-33.7) 01/13/18 06:00 MCHC 35.8 g/dl (32.0-36.0) 01/13/18 06:00 RDW 15.8 % (11.6-15.6) H 01/13/18 06:00 Plt Count 273 K/MM3 (134-434) D 01/13/18 06:00 MPV 8.5 fl (7.5-11.1) 01/13/18 06:00 Sodium 139 mmol/L (136-145) 01/13/18 06:00 Potassium 4.1 mmol/L (3.5-5.1) 01/13/18 06:00 Chloride 106 mmol/L (98-107) 01/13/18 06:00 Carbon Dioxide 27 mmol/L (21-32) 01/13/18 06:00 Anion Gap 6 (8-16) L 01/13/18 06:00 BUN 7 mg/dL (7-18) 01/13/18 06:00 Creatinine 0.8 mg/dL (0.55-1.02) 01/13/18 06:00 Creat Clearance w eGFR > 60 (>60) 01/13/18 06:00 POC Glucometer 120 UNITS (80-120) 01/15/18 05:41 Random Glucose 132 mg/dL (74-106) H 01/13/18 06:00 Calcium 9.0 mg/dL (8.5-10.1) 01/13/18 06:00 Total Bilirubin 0.4 mg/dL (0.2-1.0) D 01/13/18 06:00 AST 18 U/L (15-37) 01/13/18 06:00 ALT 25 U/L (12-78) 01/13/18 06:00 Alkaline Phosphatase 117 U/L (45-117) 01/13/18 06:00 Total Protein 7.5 g/dl (6.4-8.2) 01/13/18 06:00 Albumin 3.7 g/dl (3.4-5.0) 01/13/18 06:00 Urine Color Ltyellow 01/13/18 08:15 Urine Appearance Clear 01/13/18 08:15 Urine pH 6.0 (5.0-8.0) 01/13/18 08:15 Ur Specific [place] 1.011 (1.001-1.035) 01/13/18 08:15 Urine Protein Negative (NEGATIVE) 01/13/18 08:15 Urine Glucose (UA) Negative (NEGATIVE) 01/13/18 08:15 Urine Ketones Negative (NEGATIVE) 01/13/18 08:15 Urine Blood 1+ (NEGATIVE) H 01/13/18 08:15 Urine Nitrite Negative (NEGATIVE) 01/13/18 08:15 Urine Bilirubin Negative (<2.0 mg/dL) 01/13/18 08:15 Urine Urobilinogen Negative mg/dL (0.2-1.0) 01/13/18 08:15 Ur Leukocyte Esterase Negative (NEGATIVE) 01/13/18 08:15 Urine WBC (Auto) <1 /hpf (3-5) 01/13/18 08:15 Urine RBC (Auto) 1 /hpf (0-3) 01/13/18 08:15 Ur Epithelial Cells Rare /HPF (FEW) 01/13/18 08:15 Urine Mucus Rare 01/13/18 08:15 HIV 1&2 Antibody Screen Negative 01/12/18 06:00 HIV P24 Antigen Negative 01/12/18 06:00 lab noted - Treatment Hospital Course: Detox Protocol Followed, Detoxed Safely, Responded well, Discharged Condition Good, Rehab Referral Accepted Patient has Accepted a Rehab Referral to: [facility] - Medication Discharge Medications: Ambulatory Orders Insulin Glargine,Hum.rec.anlog [Lantus Solostar PEN -] 35 units SQ HS 08/21/16 Zolpidem Tartrate [Ambien] 10 mg PO HS #14 tablet MDD 10 08/22/16 traZODone HCL [Desyrel -] 100 mg PO HS 01/04/17 Aspirin [ASA -] 81 mg PO DAILY 11/18/17 Aripiprazole [Abilify -] 10 mg PO DAILY #30 tablet 11/25/17 Lisinopril 10 mg PO DAILY #30 tablet 01/15/18 metFORMIN HCL [Glucophage -] 500 mg PO BID #60 tablet 01/15/18 - Diagnosis (1) GERD (gastroesophageal reflux disease) Current Visit: Yes Status: Chronic Qualifiers: Esophagitis presence: without esophagitis Qualified Code(s): K21.9 - Gastro -esophageal reflux disease without esophagitis (2) Positive PPD, treated Current Visit: No Status: Resolved (3) Alcohol dependence with uncomplicated withdrawal Current Visit: Yes Status: Acute (4) DM type 2 (diabetes mellitus, type 2) Current Visit: Yes Status: Chronic Qualifiers: Diabetes mellitus superintendent container terminal insulin use: with residential use Diabetes mellitus complication status: without complication Qualified Code(s): E11.9 - Type 2 diabetes mellitus without complications; Z79.4 - prison (current) use of insulin; 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; Z79.4 - prison ( current) use of insulin; Z79.4 - prison (current) use of insulin (5) Hypertension Current Visit: Yes Status: Chronic Qualifiers: Hypertension type: essential hypertension Qualified Code(s): I10 - Essential (primary) hypertension (6) Nicotine dependence Current Visit: Yes Status: Acute Qualifiers: Nicotine product type: cigarettes Substance use status: in withdrawal Qualified Code(s): F17.213 - Nicotine dependence, cigarettes, with withdrawal (7) Obesity Current Visit: No Status: Chronic Qualifiers: Obesity type: due to excess calories - AMA Did Patient Leave Against Medical Advice: No
[2018-01-15] MEDS: RANITIDINE HCL 150 MG TABLET (FP) PO SCH (09:10)
[2018-01-15] MEDS: ASPIRIN 81 MG CHEWABLE TABLETS PO SCH (09:10)
[2018-01-15] MEDS: PRENATAL VITAMINS W/ FOLIC ACID TABLET (FP) PO SCH (09:10)
[2018-01-15] MEDS: LISINOPRIL 10 MG TABLET (FP) PO SCH (09:10)
--- NOTE | 2018-01-15 09:14 | PN ---
S Progress Note (SOAP) Subjective: denies alcohol withdrawal sx denies pain feeling better wants to go to [facility] Objective: 01/15/18 09:12 cardiac s1s2 lumg clear bilaterally abdomen soft none tenderness extremities full range of motion Assessment: 01/15/18 09:13 completed alcohol detox Plan: aftercare [facility]
[2018-01-15] MEDS ORDERED: chlordiazePOXIDE HCL 10 MG CAPSULE PO SCH (23:00)
== END 2018-01-15 09:15 | disposition home or self-care (01) | DRG 775 ==
LOC: YASAS 12:06 → Y6N 16:30
PROVIDERS: ADMIT Internal Medicine; ATTEND Internal Medicine
PROC: HZ2ZZZZ Detoxification Services for Substance Abuse Treatment (ICD-10-PCS; principal; 2018-01-12)
DX: F10.230 Alcohol dependence with withdrawal, uncomplicated (principal); F17.213 Nicotine dependence, cigarettes, with withdrawal; F31.81 Bipolar II disorder; I10 Essential (primary) hypertension; E11.9 Type 2 diabetes mellitus without complications; Z79.4 Long term (current) use of insulin; K21.9 Gastro-esophageal reflux disease without esophagitis; R76.11 Nonspecific reaction to tuberculin skin test without active tuberculosis; Z68.32 Body mass index [BMI] 32.0-32.9, adult; E66.9 Obesity, unspecified
CPT/HCPCS: 36415; 71046-TC-FY; 80053; 81003; 81015; 82962; 85027; 86593; 87389; 93005; 93010

== ENCOUNTER 2018-04-08 09:47 | Inpatient (IN) | payer OTHER ==
[2018-04-08 10:02] VITALS: BMI 31.0
--- NOTE | 2018-04-08 13:05 | HP ---
CIWA Score - CIWA Score Nausea/Vomitin-Mild Nausea/No Vomiting Muscle Tremors: 2 Anxiety: 2 Agitation: 2 Paroxysmal Sweats: 2 Orientation: 0-Oriented Tacttile Disturbances: 2-Mild Itch/Numbness/Burn Auditory Disturbances: 0-None Visual Disturbances: 0-None Headache: 2-Mild CIWA-Ar Total Score: 13 Admission [facility] Chief Complaint: Patient presents for ETOH withdrawal symptoms and marijuana/cocaine dependence. Allergies/Adverse Reactions: Allergies Allergy/AdvReac Type Severity Reaction Status Date / Time No Known Allergies Allergy Verified 04/08/18 12:40 History of Present Illness: Patient presents for ETOH withdrawal symptoms. Patient started drinking at age 15. Drinks up to 7 forty ounces of beer, shared with others, daily. Last drink was this morning. Patient also smokes marijuana and cocaine once a week. Last time she smoked was 2 days ago. Denies history of seizures. Last detox admission here at [facility] 01/2018. Longest period sobriety 2 1/2 years. PMH DM, HTN and Bipolar disorder. Denies SI/HI and suicide attempts. Exam Limitations: No Limitations - Ebola screening Have you traveled outside of the country in the last 21 days: No Have you had contact with anyone from an Ebola affected area: No Have you been sick,other than usual withdrawal symptoms: No Do you have a fever: No - Review of Systems Constitutional: Chills, Night Sweats, Changes in sleep EENT: reports: No Symptoms Reported Respiratory: reports: No Symptoms reported Cardiac: reports: No Symptoms Reported GI: reports: Diarrhea, Nausea, Poor Fluid Intake, Abdominal cramping : reports: No Symptoms Reported Musculoskeletal: reports: Back Pain, Muscle Pain Integumentary: reports: Sweating Neuro: reports: Headache, Numbness, Tingling, Tremors Endocrine: reports: No Symptoms Reported Hematology: reports: No Symptoms Reported Psychiatric: reports: Orientated x3, Anxious, Depressed Patient History - Patient Medical History Hx Anemia: No Hx Asthma: No Hx Chronic Obstructive Pulmonary Disease (COPD): No Hx Cancer: No Hx Cardiac Disorders: No Hx Congestive Heart Failure: No Hx Hypertension: Yes (NON-COMPLIANT WITH MEDICATION) Hx Hypercholesterolemia: No Hx Pacemaker: No HX Cerebrovascular Accident: No Hx Seizures: No Hx Dementia: No Hx Diabetes: Yes (ON INSULIN) Hx Gastrointestinal Disorders: Yes Hx Liver Disease: No Hx Genitourinary Disorders: No Hx Sexually Transmitted Disorders: No Hx Renal Disease (ESRD): No Hx Thyroid Disease: No Hx Human Immunodeficiency Virus (HIV): No (last 12/20 negative) Hx Hepatitis C: No Hx Depression: No (Bipolar) Hx Suicide Attempt: No Hx Bipolar Disorder: Yes (abilify use not complaint ) Hx Schizophrenia: No - Patient Surgical History Past Surgical History: Yes Hx Neurologic Surgery: No Hx Cataract Extraction: No Hx Cardiac Surgery: No Hx Lung Surgery: No Hx Breast Surgery: No Hx Breast Biopsy: No Hx Abdominal Surgery: No Hx Appendectomy: No Hx Cholecystectomy: No Hx Genitourinary Surgery: No Hx Section: No Hx Orthopedic Surgery: No Hx Hysterectomy: No Other Surgical History: SX FOR PILONIDAL CYST IN 1986 Anesthesia Reaction: No - PPD History PPD to be Administered?: No - Reproductive History Last Menstrual Period: 11/17/17 Patient : No - Smoking Cessation Smoking history: Current every day smoker Have you smoked in the past 12 months: Yes Aproximately how many cigarettes per day: 9 Hx Chewing Tobacco Use: No Initiated information on smoking cessation: Yes 'Breaking Loose' booklet given: 04/08/18 - Substance & Tx. History Hx Alcohol Use: Yes Hx Substance Use: Yes Substance Use Type: Alcohol, Cocaine, Marijuana Hx Substance Use Treatment: Yes - Substances Abused Alcohol Route: Oral Frequency: Daily Amount used: 10 40 OUNCES OF BEER Age of first use: 15 Date of Last Use: 04/08/18 Cocaine Route: Smoking Frequency: 3-6 times per week Amount used: $40 Age of first use: 21 Date of Last Use: 04/01/18 Marijuana/Hashish Route: Smoking Frequency: 1-2 times per week Amount used: 7-8 PUFFS Age of first use: 15 Date of Last Use: 04/06/18 Family Disease History - Family Disease History Family Disease History: Heart Disease: Mother, Other: Father (WAS AN ALCOHOLIC BEFORE AND STOPPED 8 YRS. AGO) Admission Physical Exam [facility] - Vital Signs Vital Signs: Vital Signs - 24 hr 04/08/18 09:57 Temperature 97.7 F Pulse Rate 87 Respiratory 18 Rate Blood Pressure 123/84 - Physical General Appearance: Yes: No Apparent Distress, Nourished, Appropriately Dressed , Tremorous, Sweating, Anxious HEENTM: Yes: EOMI, Hearing grossly Normal, Normocephalic, Normal Voice, JAY, Pharynx Normal Respiratory: Yes: Chest Non-Tender, Lungs Clear, No Respiratory Distress, No Accessory Muscle Use, Wheezing (mild scattered wheezes) Neck: Yes: No masses,lesions,Nodules, Supple, Trachea in good position Breast: Yes: Breast Exam Deferred Cardiology: Yes: Regular Rhythm, Regular Rate, S1, S2 Abdominal: Yes: Normal Bowel Sounds, Non Tender, Soft Genitourinary: Yes: Within Normal Limits Back: Yes: Normal Inspection, Muscle Spasm Musculoskeletal: Yes: full range of Motion, Gait Steady, Back pain, Muscle Pain Extremities: Yes: Normal Inspection, Normal Range of Motion, Non-Tender, Tremors Neurological: Yes: showroom sales consultant II-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 NML intact, Fully Oriented, Alert, Motor Strength 5/5, Numbness, Depressed Affect Integumentary: Yes: Normal Color, Warm, Moist Lymphatic: Yes: Within Normal Limits - Diagnostic (1) Alcohol dependence with uncomplicated withdrawal Current Visit: Yes Status: Acute (2) Nicotine dependence Current Visit: Yes Status: Chronic Qualifiers: Nicotine product type: cigarettes Substance use status: uncomplicated Qualified Code(s): F17.210 - Nicotine dependence, cigarettes, uncomplicated (3) Bipolar disorder Current Visit: Yes Status: Chronic Qualifiers: Active/Remission status: currently active Current episode severity: unspecified (4) Cannabis dependence Current Visit: Yes Status: Chronic (5) Cocaine dependence Current Visit: Yes Status: Chronic (6) DM type 2 (diabetes mellitus, type 2) Current Visit: Yes Status: Chronic Qualifiers: Diabetes mellitus lobsterman insulin use: with snf use Diabetes mellitus complication status: without complication Qualified Code(s): E11.9 - Type 2 diabetes mellitus without complications; 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 (7) GERD (gastroesophageal reflux disease) Current Visit: Yes Status: Chronic Qualifiers: Esophagitis presence: without esophagitis Qualified Code(s): K21.9 - Gastro -esophageal reflux disease without esophagitis (8) Hypertension Current Visit: Yes Status: Chronic Qualifiers: Hypertension type: essential hypertension Qualified Code(s): I10 - Essential (primary) hypertension Cleared for Admission [facility] - Detox or Rehab [facility] Level of Care: Medically Managed Detox Regimen/Protocol: Librium S Breath Alcohol Content Breath Alcohol Content: 0.12 Urine Pregancy Test - Result Urine Test Results: Negative- NO Line Present Urine Drug Screen - Results Drug Screen Negative: Yes
[2018-04-08] MEDS ORDERED: ACETAMINOPHEN 325 MG TABLET (FP) PO PRN (13:12)
[2018-04-08] MEDS ORDERED: MENTHOL/PHENOL 1 EACH UD MM PRN (13:12)
[2018-04-08] MEDS ORDERED: MAGNESIUM HYDROX 2400MG/30ML ORAL SUSPENSION 30 ML CUP PO PRN (13:12)
[2018-04-08] MEDS ORDERED: LOPERAMIDE HCL 2 MG CAPSULE PO PRN (13:12)
[2018-04-08] MEDS ORDERED: MAGNESIUM CITRATE 300 ML BOTTLE PO PRN (13:12)
[2018-04-08] MEDS ORDERED: IBUPROFEN 400 MG TABLET (FP) PO PRN (13:12)
[2018-04-08] MEDS ORDERED: MAG HYDROX/AL HYDROX/SIMETH 30 ML UNIT-DOSE CUP PO PRN (13:12)
[2018-04-08] MEDS ORDERED: P-EPHED 60MG/TRIPROLIDI 2.5MG TABLET PO PRN (13:12)
[2018-04-08] MEDS ORDERED: guaiFENesin/D-METHORPHAN HB 10 ML UNIT-DOSE CUPS PO PRN (13:12)
[2018-04-08] MEDS ORDERED: NICOTINE POLACRILEX 2 MG GUM BUC PRN (13:12)
[2018-04-08] MEDS ORDERED: hydrOXYzine PAMOATE 50 MG CAPSULE (FP) PO PRN (13:12)
[2018-04-08] MEDS ORDERED: chlordiazePOXIDE HCL 25 MG CAPSULE PO PRN (13:14)
[2018-04-08] MEDS ORDERED: chlordiazePOXIDE HCL 25 MG CAPSULE PO ONE (13:14)
[2018-04-08] MEDS: metFORMIN HCL 500 MG TABLET (FP) PO SCH (17:05)
[2018-04-08] MEDS: chlordiazePOXIDE HCL 25 MG CAPSULE PO SCH ×2 (17:05→22:51)
[2018-04-08 17:33] LABS: URINE APPEARANCE CLEAR; URINE BILIRUBIN NEGATIVE (<2.0 mg/dL); URINE COLOR STRAW; URINE GLUCOSE (UA) NEGATIVE (NEGATIVE); URINE KETONE NEGATIVE (NEGATIVE); URINE LEUK ESTERASE TRACE (NEGATIVE); URINE NITRITE NEGATIVE (NEGATIVE); URINE PROTEIN NEGATIVE (NEGATIVE); URINE UROBILINOGEN NEGATIVE mg/dL (0.2-1.0)
[2018-04-08 18:07] LABS: EPI CELLS RARE /HPF (FEW); URINE BACTERIA RARE /hpf (NONE SEEN)
[2018-04-08] MEDS ORDERED: MELATONIN 5 MG TABLETS PO PRN (22:00)
[2018-04-08] MEDS: THIAMINE HCL 100 MG TABLET (FP) PO SCH (22:50)
[2018-04-08] MEDS: SIMETHICONE 80 MG TAB.CHEW (FP) PO PRN (22:51)
[2018-04-09] MEDS: chlordiazePOXIDE HCL 25 MG CAPSULE PO SCH ×4 (06:01→22:52)
[2018-04-09] MEDS: metFORMIN HCL 500 MG TABLET (FP) PO SCH ×2 (06:02→18:17)
--- NOTE | 2018-04-09 10:05 | CONSULT ---
[facility] Psychiatric Consult - Data Date of interview: 04/09/18 Admission source: [facility] Identifying data: This is 52 years old female, single coby of one, homeless, unemployed, Patient presents for ETOH withdrawal symptoms, reports abusing Cannabis, Cocaine and Nicotine as well. Currently seeking for detox. Substance Abuse History: - Smoking Cessation. Smoking history: Current every day smoker. Have you smoked in the past 12 months: Yes. Aproximately how many cigarettes per day: 9. Hx Chewing Tobacco Use: No. Initiated information on smoking cessation: Yes. 'Breaking Loose' booklet given: 04/08/18. - Substance & Tx. History. Hx Alcohol Use: Yes. Hx Substance Use: Yes. Substance Use Type : Alcohol, Cocaine, Marijuana. Hx Substance Use Treatment: Yes. - Substances Abused. Alcohol. Route: Oral. Frequency: Daily. Amount used: 10 40 OUNCES OF BEER. Age of first use: 15. Date of Last Use: 04/08/18. Cocaine. Route: Smoking. Frequency: 3-6 times per week. Amount used: $40. Age of first use: 21. Date of Last Use: 04/01/18. Marijuana/Hashish. Route : Smoking. Frequency: 1-2 times per week. Amount used: 7-8 PUFFS. Age of first use: 15. Date of Last Use: 04/06/18 Medical History: dm-2, Hypeerthyropidism, GERD, Obesity, Hyperthyroidism, HTN Psychiatric History: Patient reports history of Bipolar Disordr with most recent psychiatric admsision on 2-3m months ago at [facility] for safety , \\\\\\\\\\\\. Patient reports taking prior to admission: Abilify 10mg poqd. Ambien po prn qhs for insomnia Physical/Sexual Abuse/Trauma History: Denies Additional Comment: Abilify 10mg poqd. Ambien po prn qhs for insomnia Mental Status Exam - Mental Status Exam Alert and Oriented to: Person Cognitive Function: Fair Mood: Anxious Affect: Mood Congruent Patient Behavior: Cooperative Speech Pattern: Appropriate Voice Loudness: Normal Thought Process: Goal Oriented Thought Disorder: Being Controlled Hallucinations: Denies Suicidal Ideation: Denies Homicidal Ideation: Denies Insight/Judgement: Fair Sleep: Difficulty falling asleep Appetite: Weight gain Muscle strength/Tone: Mild Hypotonicity Gait/Station: Normal Additional Comments: Abilify 10mg poqd. Ambien po prn qhs for insomnia Psychiatric Findings - Problem List ([place] 1, 2,3) (1) Alcohol dependence with uncomplicated withdrawal Current Visit: Yes Status: Acute (2) Bipolar disorder Current Visit: Yes Status: Chronic Qualifiers: Active/Remission status: currently active Current episode severity: unspecified (3) Cannabis dependence Current Visit: Yes Status: Chronic (4) Cocaine dependence Current Visit: Yes Status: Chronic (5) DM type 2 (diabetes mellitus, type 2) Current Visit: Yes Status: Chronic Qualifiers: Diabetes mellitus shelter insulin use: with shelter use Diabetes mellitus complication status: without complication Qualified Code(s): E11.9 - Type 2 diabetes mellitus without complications; 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 (6) GERD (gastroesophageal reflux disease) Current Visit: Yes Status: Chronic Qualifiers: Esophagitis presence: without esophagitis Qualified Code(s): K21.9 - Gastro -esophageal reflux disease without esophagitis (7) Hypertension Current Visit: Yes Status: Chronic Qualifiers: Hypertension type: essential hypertension Qualified Code(s): I10 - Essential (primary) hypertension (8) Nicotine dependence Current Visit: Yes Status: Chronic Qualifiers: Nicotine product type: cigarettes Substance use status: uncomplicated Qualified Code(s): F17.210 - Nicotine dependence, cigarettes, uncomplicated (9) Alcohol dependence Current Visit: No Status: Chronic (10) Drug-induced mood disorder Current Visit: No Status: Chronic (11) Obesity Current Visit: No Status: Chronic Qualifiers: Obesity type: due to excess calories (12) Positive PPD, treated Current Visit: No Status: Resolved - Initial Treatment Plan Initial Treatment Plan: Abilify 10mg poqd. Ambien po prn qhs for insomnia
[2018-04-09] MEDS: ASPIRIN 81 MG CHEWABLE TABLETS PO SCH (10:11)
[2018-04-09] MEDS: PANTOPRAZOLE 40 MG TABLET (FP) PO SCH (10:11)
[2018-04-09] MEDS: LISINOPRIL 10 MG TABLET (FP) PO SCH (10:12)
[2018-04-09] MEDS: PRENATAL VITAMINS W/ FOLIC ACID TABLET (FP) PO SCH (10:12)
[2018-04-09 10:28] LABS: HEMATOCRIT 41.9 % (32.4-45.2); HEMOGLOBIN 14.8 GM/dL (10.7-15.3); MCH 31.8 pg (25.7-33.7); MCHC 35.4 g/dl (32.0-36.0); MEAN PLT VOLUME 8.5 fl (7.5-11.1); PLATELET COUNT 246 K/MM3 (134-434); RBC 4.66 M/mm3 (3.60-5.2); RDW 15.5 % (11.6-15.6); WHITE BLOOD COUNT 5.4 K/mm3 (4.0-10.0)
[2018-04-09 10:47] LABS: CHLORIDE 107 mmol/L (98-107); POTASSIUM 4.1 mmol/L (3.5-5.1); SODIUM 140 mmol/L (136-145)
[2018-04-09 10:54] LABS: ALBUMIN 3.2 g/dl (3.4-5.0); ALK PHOS 100 U/L (45-117); ANION GAP 6 (8-16); BILIRUBIN,TOTAL 0.4 mg/dL (0.2-1.0); BLOOD UREA NITROGEN 9 mg/dL (7-18); CALCIUM 8.4 mg/dL (8.5-10.1); CO2 27 mmol/L (21-32); CREATININE 0.5 mg/dL (0.55-1.02); GLUCOSE,RANDOM 96 mg/dL (74-106); SGOT/AST 15 U/L (15-37); SGPT/ALT 25 U/L (12-78); TOT PROT 6.7 g/dl (6.4-8.2)
[2018-04-09] MEDS: ARIPiprazole 10 MG TABLET PO SCH (11:15)
--- NOTE | 2018-04-09 11:17 | PN ---
[facility] CIWA - CIWA Score Nausea/Vomitin-No Nausea/No Vomiting Muscle Tremors: 4-Moderate,w/Arms Extend Anxiety: 4-Mod. Anxious/Guarded Agitation: 3 Paroxysmal Sweats: 1-Minimal Palms Moist Orientation: 0-Oriented Tacttile Disturbances: 1-Very Mild Itch/Numbness Auditory Disturbances: 0-None Visual Disturbances: 0-None Headache: 0-None Present CIWA-Ar Total Score: 13 S Progress Note (SOAP) Subjective: sweat tremor gi distress requests leadership program intern for nutrition Objective: 04/09/18 11:19 Vital Signs Temperature 97.1 F L 04/09/18 09:32 Pulse Rate 91 H 04/09/18 09:32 Respiratory Rate 18 04/09/18 09:32 Blood Pressure 137/85 04/09/18 09:32 O2 Sat by Pulse Oximetry (%) Laboratory Last Values WBC 5.4 K/mm3 (4.0-10.0) 04/09/18 07:40 RBC 4.66 M/mm3 (3.60-5.2) 04/09/18 07:40 Hgb 14.8 GM/dL (10.7-15.3) 04/09/18 07:40 Hct 41.9 % (32.4-45.2) 04/09/18 07:40 MCV 90.0 fl (80-96) 04/09/18 07:40 MCH 31.8 pg (25.7-33.7) 04/09/18 07:40 MCHC 35.4 g/dl (32.0-36.0) 04/09/18 07:40 RDW 15.5 % (11.6-15.6) 04/09/18 07:40 Plt Count 246 K/MM3 (134-434) 04/09/18 07:40 MPV 8.5 fl (7.5-11.1) 04/09/18 07:40 Sodium 140 mmol/L (136-145) 04/09/18 07:40 Potassium 4.1 mmol/L (3.5-5.1) 04/09/18 07:40 Chloride 107 mmol/L (98-107) 04/09/18 07:40 Carbon Dioxide 27 mmol/L (21-32) 04/09/18 07:40 Anion Gap 6 (8-16) L 04/09/18 07:40 BUN 9 mg/dL (7-18) 04/09/18 07:40 Creatinine 0.5 mg/dL (0.55-1.02) L 04/09/18 07:40 Creat Clearance w eGFR > 60 (>60) 04/09/18 07:40 POC Glucometer 120 UNITS (80-120) 04/09/18 06:00 Random Glucose 96 mg/dL (74-106) 04/09/18 07:40 Calcium 8.4 mg/dL (8.5-10.1) L 04/09/18 07:40 Total Bilirubin 0.4 mg/dL (0.2-1.0) 04/09/18 07:40 AST 15 U/L (15-37) 04/09/18 07:40 ALT 25 U/L (12-78) 04/09/18 07:40 Alkaline Phosphatase 100 U/L (45-117) 04/09/18 07:40 Total Protein 6.7 g/dl (6.4-8.2) 04/09/18 07:40 Albumin 3.2 g/dl (3.4-5.0) L 04/09/18 07:40 Urine Color Straw 04/08/18 16:45 Urine Appearance Clear 04/08/18 16:45 Urine pH 6.0 (5.0-8.0) 04/08/18 16:45 Ur Specific [place] 1.006 (1.001-1.035) 04/08/18 16:45 Urine Protein Negative (NEGATIVE) 04/08/18 16:45 Urine Glucose (UA) Negative (NEGATIVE) 04/08/18 16:45 Urine Ketones Negative (NEGATIVE) 04/08/18 16:45 Urine Blood 1+ (NEGATIVE) H 04/08/18 16:45 Urine Nitrite Negative (NEGATIVE) 04/08/18 16:45 Urine Bilirubin Negative (<2.0 mg/dL) 04/08/18 16:45 Urine Urobilinogen Negative mg/dL (0.2-1.0) 04/08/18 16:45 Ur Leukocyte Esterase Trace (NEGATIVE) 04/08/18 16:45 Urine WBC (Auto) 1 /hpf (3-5) 04/08/18 16:45 Urine RBC (Auto) <1 /hpf (0-3) 04/08/18 16:45 Ur Epithelial Cells Rare /HPF (FEW) 04/08/18 16:45 Urine Bacteria Rare /hpf (NONE SEEN) 04/08/18 16:45 lab noted repeat ua Assessment: 04/09/18 11:20 withdrawal sx Plan: continue detox repeat ua leadership program intern referral
--- NOTE | 2018-04-09 11:31 | EKG ---
Test Reason : Blood Pressure : / mmHG Vent. Rate : 092 BPM Atrial Rate : 092 BPM P-R Int : 160 ms QRS Dur : 074 ms QT Int : 362 ms P-R-T Axes : 057 038 058 degrees QTc Int : 447 ms NORMAL SINUS RHYTHM NORMAL ECG WHEN COMPARED WITH ECG OF 12-JAN-2018 17:41, NON-SPECIFIC CHANGE IN ST SEGMENT IN ANTERIOR LEADS Confirmed by BRANDON SHIELDS, KELSEY ([id number]) on 04/09/2018 11:31:05 AM Referred By: Sharan Doan Confirmed By:KELSEY TAYLOR MD
[2018-04-09] MEDS ORDERED: ZOLPIDEM TARTRATE 10 MG TABLET (PARK CARE ONLY) PO PRN (22:00)
[2018-04-09] MEDS: THIAMINE HCL 100 MG TABLET (FP) PO SCH (22:52)
[2018-04-10] MEDS: chlordiazePOXIDE HCL 25 MG CAPSULE PO SCH ×2 (05:35→10:39)
[2018-04-10] MEDS: metFORMIN HCL 500 MG TABLET (FP) PO SCH ×2 (06:12→17:23)
[2018-04-10] MEDS: ASPIRIN 81 MG CHEWABLE TABLETS PO SCH (10:39)
[2018-04-10] MEDS: LISINOPRIL 10 MG TABLET (FP) PO SCH (10:39)
[2018-04-10] MEDS: PANTOPRAZOLE 40 MG TABLET (FP) PO SCH (10:39)
[2018-04-10] MEDS: ARIPiprazole 10 MG TABLET PO SCH (10:39)
[2018-04-10] MEDS: PRENATAL VITAMINS W/ FOLIC ACID TABLET (FP) PO SCH (10:39)
[2018-04-10] MEDS: SIMETHICONE 80 MG TAB.CHEW (FP) PO PRN (10:40)
[2018-04-10 10:44] LABS: URINE APPEARANCE SLCLOUDY; URINE BILIRUBIN NEGATIVE (<2.0 mg/dL); URINE COLOR LTYELLOW; URINE GLUCOSE (UA) NEGATIVE (NEGATIVE); URINE KETONE NEGATIVE (NEGATIVE); URINE LEUK ESTERASE TRACE (NEGATIVE); URINE NITRITE NEGATIVE (NEGATIVE); URINE PROTEIN NEGATIVE (NEGATIVE); URINE UROBILINOGEN NEGATIVE mg/dL (0.2-1.0)
[2018-04-10 10:57] LABS: CALCIUM OXALATE CRYSTALS RARE /hpf (NONE SEEN); EPI CELLS FEW /HPF (FEW); URINE MUCUS RARE
[2018-04-10] MEDS ORDERED: METHADONE HCL 10 MG TABLET PO ONE (12:22)
--- NOTE | 2018-04-10 12:57 | PN ---
S CIWA - CIWA Score Nausea/Vomitin-No Nausea/No Vomiting Muscle Tremors: None Anxiety: 1-Mildly Anxious Agitation: 1-Slight > Activity Paroxysmal Sweats: No Perspiration Orientation: 0-Oriented Tacttile Disturbances: 0-None Auditory Disturbances: 0-None Visual Disturbances: 0-None Headache: 0-None Present CIWA-Ar Total Score: 2
--- NOTE | 2018-04-10 13:02 | PN ---
[facility] Progress Note (SOAP) Subjective: pt without complaints today. would like to go to rehab. Pt states has no h/o hypothyroidism Objective: 04/10/18 12:57 CBC, BMP 04/09/18 07:40 04/09/18 07:40 Vital Signs - 24 hr 04/09/18 04/09/18 04/09/18 13:56 17:56 22:47 Temperature 98.2 F 98.1 F 97.9 F Pulse Rate 72 88 86 Respiratory 16 18 18 Rate Blood Pressure 125/79 150/83 142/89 04/10/18 04/10/18 06:18 10:23 Temperature 97.7 F 97.9 F Pulse Rate 76 77 Respiratory 18 18 Rate Blood Pressure 139/85 135/82 nl VS and labs Pe grossly nl Assessment: 04/10/18 12:58 doing well with alcohol detox cocaine and THC abstinent pt has no evidence of hypothyroidism at this time- pt denies this diagnosis No thyroid labs were done during this admission Plan: Continue detox protocol transfer to rehab after detox
[2018-04-10] MEDS: chlordiazePOXIDE 5 MG CAPSULE PO SCH ×2 (17:23→22:11)
[2018-04-10] MEDS: THIAMINE HCL 100 MG TABLET (FP) PO SCH (22:10)
[2018-04-11] MEDS: chlordiazePOXIDE 5 MG CAPSULE PO SCH ×2 (05:23→10:21)
[2018-04-11] MEDS: metFORMIN HCL 500 MG TABLET (FP) PO SCH (06:11)
[2018-04-11 06:31] VITALS: PULSE 77
[2018-04-11 09:20] VITALS: BP 139/67; TEMP 98.4
[2018-04-11] MEDS: PRENATAL VITAMINS W/ FOLIC ACID TABLET (FP) PO SCH (10:21)
[2018-04-11] MEDS: ARIPiprazole 10 MG TABLET PO SCH (10:21)
[2018-04-11] MEDS: PANTOPRAZOLE 40 MG TABLET (FP) PO SCH (10:21)
[2018-04-11] MEDS: ASPIRIN 81 MG CHEWABLE TABLETS PO SCH (10:21)
[2018-04-11] MEDS: LISINOPRIL 10 MG TABLET (FP) PO SCH (10:21)
--- NOTE | 2018-04-11 14:00 | PN ---
S Progress Note (SOAP) Subjective: alert,irritable,anxious,interrupted sleep Objective: 04/11/18 13:59 Vital Signs Temperature 98.4 F 04/11/18 09:20 Pulse Rate 77 04/11/18 09:20 Respiratory Rate 18 04/11/18 09:20 Blood Pressure 139/67 04/11/18 09:20 O2 Sat by Pulse Oximetry (%) Assessment: 04/11/18 13:59 withdrawal symptom Plan: continue detox
--- NOTE | 2018-04-11 14:36 | PN ---
S Progress Note Note: patient would like to go home today,stable for discharge
--- NOTE | 2018-04-11 14:41 | DS ---
[facility] Detox Discharge Summary Admission Date: 04/08/18 Discharge Date: 04/11/18 - History Present History: Alcohol Dependence, Cannabis Dependence, Cocaine Dependence Additional Comments: patient is stable for discharge today,stated has to go home today to prepare to go to [facility] rehab,seen by counselor Pertinent Past History: type 2 dm hypertension gerd nicotine dependence - Physical Exam Results Vital Signs: Vital Signs Temperature 98.4 F 04/11/18 09:20 Pulse Rate 77 04/11/18 09:20 Respiratory Rate 18 04/11/18 09:20 Blood Pressure 139/67 04/11/18 09:20 O2 Sat by Pulse Oximetry (%) Pertinent Admission Physical Exam Findings: withdrawal signs and symptoms Laboratory Last Values WBC 5.4 K/mm3 (4.0-10.0) 04/09/18 07:40 RBC 4.66 M/mm3 (3.60-5.2) 04/09/18 07:40 Hgb 14.8 GM/dL (10.7-15.3) 04/09/18 07:40 Hct 41.9 % (32.4-45.2) 04/09/18 07:40 MCV 90.0 fl (80-96) 04/09/18 07:40 MCH 31.8 pg (25.7-33.7) 04/09/18 07:40 MCHC 35.4 g/dl (32.0-36.0) 04/09/18 07:40 RDW 15.5 % (11.6-15.6) 04/09/18 07:40 Plt Count 246 K/MM3 (134-434) 04/09/18 07:40 MPV 8.5 fl (7.5-11.1) 04/09/18 07:40 Sodium 140 mmol/L (136-145) 04/09/18 07:40 Potassium 4.1 mmol/L (3.5-5.1) 04/09/18 07:40 Chloride 107 mmol/L (98-107) 04/09/18 07:40 Carbon Dioxide 27 mmol/L (21-32) 04/09/18 07:40 Anion Gap 6 (8-16) L 04/09/18 07:40 BUN 9 mg/dL (7-18) 04/09/18 07:40 Creatinine 0.5 mg/dL (0.55-1.02) L 04/09/18 07:40 Creat Clearance w eGFR > 60 (>60) 04/09/18 07:40 POC Glucometer 118 UNITS (80-120) 04/11/18 05:22 Random Glucose 96 mg/dL (74-106) 04/09/18 07:40 Calcium 8.4 mg/dL (8.5-10.1) L 04/09/18 07:40 Total Bilirubin 0.4 mg/dL (0.2-1.0) 04/09/18 07:40 AST 15 U/L (15-37) 04/09/18 07:40 ALT 25 U/L (12-78) 04/09/18 07:40 Alkaline Phosphatase 100 U/L (45-117) 04/09/18 07:40 Total Protein 6.7 g/dl (6.4-8.2) 04/09/18 07:40 Albumin 3.2 g/dl (3.4-5.0) L 04/09/18 07:40 Urine Color Ltyellow 04/10/18 08:00 Urine Appearance Slcloudy 04/10/18 08:00 Urine pH 6.0 (5.0-8.0) 04/10/18 08:00 Ur Specific [place] 1.013 (1.001-1.035) 04/10/18 08:00 Urine Protein Negative (NEGATIVE) 04/10/18 08:00 Urine Glucose (UA) Negative (NEGATIVE) 04/10/18 08:00 Urine Ketones Negative (NEGATIVE) 04/10/18 08:00 Urine Blood Negative (NEGATIVE) 04/10/18 08:00 Urine Nitrite Negative (NEGATIVE) 04/10/18 08:00 Urine Bilirubin Negative (<2.0 mg/dL) 04/10/18 08:00 Urine Urobilinogen Negative mg/dL (0.2-1.0) 04/10/18 08:00 Ur Leukocyte Esterase Trace (NEGATIVE) 04/10/18 08:00 Urine WBC (Auto) <1 /hpf (3-5) 04/10/18 08:00 Urine RBC (Auto) 4 /hpf (0-3) 04/10/18 08:00 Ur Epithelial Cells Few /HPF (FEW) 04/10/18 08:00 Calcium Oxalate Crystal Rare /hpf (NONE SEEN) 04/10/18 08:00 Urine Bacteria Rare /hpf (NONE SEEN) 04/08/18 16:45 Urine Mucus Rare 04/10/18 08:00 RPR Titer Nonreactive (NONREACTIVE) 04/09/18 07:40 HIV 1&2 Antibody Screen Negative 04/09/18 07:40 HIV P24 Antigen Negative 04/09/18 07:40 Vital Signs Temperature 98.4 F 04/11/18 09:20 Pulse Rate 77 04/11/18 09:20 Respiratory Rate 18 04/11/18 09:20 Blood Pressure 139/67 04/11/18 09:20 O2 Sat by Pulse Oximetry (%) - Treatment Hospital Course: Detox Protocol Followed, Detoxed Safely, Responded well, Discharged Condition Good Patient has Accepted a Rehab Referral to: declined - Medication Discharge Medications: Ambulatory Orders Insulin Glargine,Hum.rec.anlog [Lantus Solostar PEN -] 35 units SQ HS 08/21/16 Zolpidem Tartrate [Ambien] 10 mg PO HS #14 tablet MDD 10 08/22/16 Aripiprazole [Abilify -] 10 mg PO DAILY #30 tablet 04/09/18 Aspirin [ASA -] 81 mg PO DAILY #30 tab.chew 04/11/18 Lisinopril 10 mg PO DAILY #30 tablet 04/11/18 metFORMIN HCL [Glucophage -] 500 mg PO BID #60 tablet 04/11/18 - AMA Did Patient Leave Against Medical Advice: No
[2018-04-11] MEDS ORDERED: chlordiazePOXIDE HCL 10 MG CAPSULE PO SCH (17:00)
== END 2018-04-11 15:15 | disposition home or self-care (01) | DRG 774 ==
LOC: YASAS 09:47 → Y6N 14:12
PROVIDERS: ADMIT Surgery; ATTEND Surgery
PROC: HZ2ZZZZ Detoxification Services for Substance Abuse Treatment (ICD-10-PCS; principal; 2018-04-08)
DX: F10.230 Alcohol dependence with withdrawal, uncomplicated (principal); F14.20 Cocaine dependence, uncomplicated; F12.20 Cannabis dependence, uncomplicated; F17.210 Nicotine dependence, cigarettes, uncomplicated; F31.9 Bipolar disorder, unspecified; F19.24 Other psychoactive substance dependence with psychoactive substance-induced mood disorder; I10 Essential (primary) hypertension; K21.9 Gastro-esophageal reflux disease without esophagitis; E11.9 Type 2 diabetes mellitus without complications; Z79.4 Long term (current) use of insulin; Z79.84 Long term (current) use of oral hypoglycemic drugs; R76.11 Nonspecific reaction to tuberculin skin test without active tuberculosis; E66.9 Obesity, unspecified; Z68.31 Body mass index [BMI] 31.0-31.9, adult
CPT/HCPCS: 36415; 80053; 81003; 81015; 82962; 85027; 86593; 87389; 93005; 93010

== ENCOUNTER 2019-01-17 13:38 | Inpatient (IN) | payer OTHER ==
[2019-01-17 14:05] VITALS: BMI 33.0
--- NOTE | 2019-01-17 14:18 | HP ---
CIWA Score Nausea/Vomitin Muscle Tremors: 2 Anxiety: 2 Agitation: 2 Paroxysmal Sweats: 1-Minimal Palms Moist Orientation: 0-Oriented Tacttile Disturbances: 1-Very Mild Itch/Numbness Auditory Disturbances: 1-Very Mild Visual Disturbances: 0-None Headache: 2-Mild CIWA-Ar Total Score: 13 - Admission Criteria OASAS Guidelines: Admission for Medically Managed Detox: Requires at least one of the followin. CIWA greater than 12 2. Seizures within the past 24 hours 3. Delirium tremens within the past 24 hours 4. Hallucinations within the past 24 hours 5. Acute intervention needed for co occurring medical disorder 6. Acute intervention needed for co occurring psychiatric disorder 7. Severe withdrawal that cannot be handled at a lower level of care (continued vomiting, continued diarrhea, abnormal vital signs) requiring intravenous medication and/or fluids 8. Admission ROS [facility] - HPI Chief Complaint: i need help to stop drinking alcohol and cocaine Allergies/Adverse Reactions: Allergies Allergy/AdvReac Type Severity Reaction Status Date / Time No Known Allergies Allergy Verified 01/17/19 14:45 History of Present Illness: this 53 years old female with alcohol and b0dckva dependence seeking detox, withdrawal symptom, multiple admissions in detox last admission 04/08/28 to 04/11/18 [facility] syncope alcohol related history of hypertension,type 2 dm, nicotine dependence 7 to 8 cigarette do not want nicotine replacement gerd longest sobriety 2 and half year anxiety,insomnia - Ebola screening Have you traveled outside of the country in the last 21 days: No (N) Have you had contact with anyone from an Ebola affected area: No Do you have a fever: No - Review of Systems Constitutional: Loss of Appetite, Malaise, Night Sweats, Changes in sleep EENT: reports: Nose Congestion Respiratory: reports: No Symptoms reported Cardiac: reports: No Symptoms Reported GI: reports: Poor Appetite, Vomiting : reports: No Symptoms Reported Musculoskeletal: reports: Back Pain, Muscle Pain Integumentary: reports: Dryness Neuro: reports: Headache, Tremors Endocrine: reports: No Symptoms Reported Hematology: reports: No Symptoms Reported Psychiatric: reports: No Sypmtoms Reported, Judgement Intact, Mood/Affect Appropiate, Orientated x3, Agitated, Depressed, other (anxiety,depression, insomnia) Other Systems: Reviewed and Negative Patient History - Patient Medical History Hx Anemia: No Hx Asthma: No Hx Chronic Obstructive Pulmonary Disease (COPD): No Hx Cancer: No Hx Cardiac Disorders: No Hx Congestive Heart Failure: No Hx Hypertension: Yes (NON-COMPLIANT WITH MEDICATION) Hx Hypercholesterolemia: No Hx Pacemaker: No HX Cerebrovascular Accident: No Hx Seizures: No Hx Dementia: No Hx Diabetes: Yes (ON metformin 500 mgs po bid) Hx Gastrointestinal Disorders: Yes Hx Liver Disease: No Hx Genitourinary Disorders: No Hx Sexually Transmitted Disorders: No Hx Renal Disease (ESRD): No Hx Thyroid Disease: No Hx Human Immunodeficiency Virus (HIV): No (last 09/22 negative) Hx Hepatitis C: No Hx Depression: No (Bipolar) Hx Suicide Attempt: No Hx Bipolar Disorder: Yes (abilify use not complaint ) Hx Schizophrenia: No Other Medical History: no suicidal,no homicidal - Patient Surgical History Past Surgical History: Yes Hx Neurologic Surgery: No Hx Cataract Extraction: No Hx Cardiac Surgery: No Hx Lung Surgery: No Hx Breast Surgery: No Hx Breast Biopsy: No Hx Abdominal Surgery: No Hx Appendectomy: No Hx Cholecystectomy: No Hx Genitourinary Surgery: No Hx Section: No Hx Orthopedic Surgery: No Hx Hysterectomy: No Other Surgical History: SX FOR PILONIDAL CYST IN 1986 Anesthesia Reaction: No - PPD History Previous Implant?: Yes Documented Results: Positive w/o proof Implanted On Prior [facility] Admission?: No PPD to be Administered?: No - Reproductive History Patient is a Female of Child Bearing Age (11 -55 yrs old): Yes Last Menstrual Period: 11/17/17 Patient : No - Smoking Cessation Smoking history: Current every day smoker Have you smoked in the past 12 months: Yes Aproximately how many cigarettes per day: 7 Hx Chewing Tobacco Use: No Initiated information on smoking cessation: Yes 'Breaking Loose' booklet given: 01/17/19 - Substance & Tx. History Hx Alcohol Use: Yes Hx Substance Use: Yes Substance Use Type: Alcohol, Cocaine Hx Substance Use Treatment: Yes ([facility] 04/08/18 to 04/11/18) - Substances abused Alcohol Substance route: Oral Frequency: Daily Amount used: 1 pint of vodka/5 of 40 ozs of beer Age of first use: 15 Date of last use: 01/17/19 Cocaine Substance route: Inhalation Frequency: Daily Amount used: 50$ Age of first use: 21 Date of last use: 01/17/19 Family Disease History - Family Disease History Family Disease History: Heart Disease: Mother, Other: Father (WAS AN ALCOHOLIC BEFORE AND STOPPED 8 YRS. AGO) Admission Physical Exam [facility] - Vital Signs Vital Signs: Vital Signs - 24 hr 01/17/19 14:03 Temperature 99.1 F Pulse Rate 98 H Respiratory 18 Rate Blood Pressure 151/90 - Physical General Appearance: Yes: Moderate Distress, Tremorous, Irritable, Sweating, Anxious HEENTM: Yes: Normal ENT Inspection, AJY, Pharynx Normal Respiratory: Yes: Lungs Clear, Normal Breath Sounds, No Respiratory Distress Neck: Yes: Within Normal Limits, Supple, Trachea in good position Breast: Yes: Breast Exam Deferred Cardiology: Yes: Within Normal Limits, Regular Rhythm, Regular Rate, S1, S2 Abdominal: Yes: Within Normal Limits, Normal Bowel Sounds, Non Tender, Flat, Soft Genitourinary: Yes: Within Normal Limits Musculoskeletal: Yes: Back pain, Muscle Pain Extremities: Yes: Tremors Integumentary: Yes: Dry Lymphatic: Yes: Within Normal Limits - Diagnostic (1) Alcohol dependence with uncomplicated withdrawal Current Visit: No Status: Acute (2) Insomnia Current Visit: No Status: Acute (3) Bipolar disorder Current Visit: No Status: Chronic Qualifiers: Active/Remission status: currently active Current episode severity: unspecified (4) Cocaine dependence Current Visit: No Status: Chronic (5) Hypertension Current Visit: No Status: Chronic Qualifiers: Hypertension type: essential hypertension Qualified Code(s): I10 - Essential (primary) hypertension (6) Nicotine dependence Current Visit: No Status: Chronic Qualifiers: Nicotine product type: cigarettes Substance use status: uncomplicated Qualified Code(s): F17.210 - Nicotine dependence, cigarettes, uncomplicated (7) Positive PPD, treated Current Visit: No Status: Resolved (8) GERD (gastroesophageal reflux disease) Current Visit: Yes Status: Acute Cleared for Admission S - Detox or Rehab [facility] Level of Care: Medically Managed Detox Regimen/Protocol: Librium Breathalyzer - Breathalyzer Breathalyzer: 0 POC Urine test - Test device test lot number: [id number] Expiration date: 06/05/20 - Control test control: Yes - Result Urine Test Results: Negative - NO line present Urine Drug Screen - Test Device Lot number: [id number] Expiration date: 09/04/20 - Control Is test valid?: Yes - Results Drug screen NEGATIVE: No Urine drug screen results: DILEEP-Cocaine Inpatient Rehab Admission - Rehab Decision to Admit Inpatient rehab admission?: No
[2019-01-17] MEDS ORDERED: ACETAMINOPHEN 325 MG TABLET (FP) PO PRN ×2 (14:31)
[2019-01-17] MEDS ORDERED: METHOCARBAMOL 500 MG TABLET PO PRN (14:31)
[2019-01-17] MEDS ORDERED: chlordiazePOXIDE HCL 25 MG CAPSULE PO PRN (14:31)
[2019-01-17] MEDS ORDERED: BISMUTH SUBSALICYLATE 524 MG/30 ML UD PO PRN (14:31)
[2019-01-17] MEDS ORDERED: MAG HYDROX/AL HYDROX/SIMETH 30 ML UNIT-DOSE CUP PO PRN (14:31)
[2019-01-17] MEDS ORDERED: IBUPROFEN 400 MG TABLET (FP) PO PRN (14:31)
[2019-01-17] MEDS ORDERED: MELATONIN 5 MG TABLETS PO PRN (14:31)
[2019-01-17] MEDS ORDERED: MENTHOL/PHENOL 1 EACH UD MM PRN (14:31)
[2019-01-17] MEDS ORDERED: MAGNESIUM HYDROX 2400MG/30ML ORAL SUSPENSION 30 ML CUP PO PRN (14:31)
[2019-01-17] MEDS ORDERED: MAGNESIUM CITRATE 300 ML BOTTLE PO PRN (14:31)
[2019-01-17] MEDS ORDERED: hydrOXYzine PAMOATE 25 MG CAPSULE (FP) PO PRN (14:31)
[2019-01-17] MEDS ORDERED: RANITIDINE HCL 150 MG TABLET (FP) PO ONE (15:00)
[2019-01-17] MEDS: metFORMIN HCL 500 MG TABLET (FP) PO SCH (16:46)
[2019-01-17] MEDS: THIAMINE HCL 100 MG TABLET (FP) PO SCH (22:39)
[2019-01-17] MEDS: RANITIDINE HCL 150 MG TABLET (FP) PO SCH (22:40)
[2019-01-17] MEDS: chlordiazePOXIDE HCL 25 MG CAPSULE PO SCH (22:40)
[2019-01-18] MEDS: chlordiazePOXIDE HCL 25 MG CAPSULE PO SCH ×4 (06:45→22:23)
[2019-01-18] MEDS: metFORMIN HCL 500 MG TABLET (FP) PO SCH ×2 (06:45→17:09)
--- NOTE | 2019-01-18 08:45 | PN ---
S CIWA - CIWA Score Nausea/Vomitin-Mild Nausea/No Vomiting Muscle Tremors: 3 Anxiety: 2 Agitation: 2 Paroxysmal Sweats: 1-Minimal Palms Moist Orientation: 2-Disoriented Date<2 days Tacttile Disturbances: 0-None Auditory Disturbances: 0-None Visual Disturbances: 0-None Headache: 1-Very Mild CIWA-Ar Total Score: 12 [facility] Progress Note (SOAP) Subjective: patient has long history of schizoaffective disorder treated with risperidal 4 mg po daily psychiatrist referral was made Objective: 01/18/19 08:43 Vital Signs Temperature 97.3 F L 01/18/19 05:59 Pulse Rate 61 01/18/19 05:59 Respiratory Rate 18 01/18/19 06:30 Blood Pressure 104/70 01/18/19 05:59 O2 Sat by Pulse Oximetry (%) Laboratory Last Values POC Glucometer 97 UNITS (80-120) 01/18/19 06:41 lab pending Assessment: 01/18/19 08:44 alcohol withdrawal sx Plan: continue detox
[2019-01-18 10:00] LABS: HEMATOCRIT 41.5 % (32.4-45.2); HEMOGLOBIN 14.3 GM/dL (10.7-15.3); MCH 30.3 pg (25.7-33.7); MCHC 34.5 g/dl (32.0-36.0); MEAN CELL VOLUME 87.8 fl (80-96); MEAN PLT VOLUME 8.3 fl (7.5-11.1); PLATELET COUNT 329 K/MM3 (134-434); RBC 4.73 M/mm3 (3.60-5.2); WHITE BLOOD COUNT 5.1 K/mm3 (4.0-10.0)
--- NOTE | 2019-01-18 10:05 | CONSULT ---
[facility] Psychiatric Consult - Data Date of interview: 01/18/19 Admission source: [facility] Identifying data: This is one of multiple admissions to [facility] for this 53 y/ o Aa female self-referred for detoxification treatment (alcohol, cocaine). Examined at [address] [place] [address]. Patient is , a mother of one, domiciled, unemployed and deprived of any source of income. Substance Abuse History: Confirmed by patient. Details in current [facility] report : Smoking history: Current every day smoker. Have you smoked in the past 12 months: Yes. Aproximately how many cigarettes per day: 7. Hx Chewing Tobacco Use: No. Initiated information on smoking cessation: Yes. 'Breaking Loose' booklet given: 01/17/19. - Substance & Tx. History. Hx Alcohol Use: Yes. Hx Substance Use: Yes. Substance Use Type: Alcohol, Cocaine. Hx Substance Use Treatment: Yes ([facility] 04/08/18 to 04/11/18). - Substances abused. Alcohol. Substance route: Oral. Frequency: Daily. Amount used: 1 pint of vodka/5 of 40 ozs of beer. Age of first use: 15. Date of last use: 01/17/19. Cocaine. Substance route: Inhalation. Frequency: Daily. Amount used: 50$. Age of first use: 21. Date of last use: 01/17/19 Medical History: Remarkable for GERD, diabetes mellitus, hypertension, varicose veins, uterine fibroids, history of surgical excision of a pilonidal cyst and positive PPD Psychiatric History: Patient endorses a history of multiple psychiatric hospitalizations ([facility]). Diagnosed with Bipolar Disorder (1996). Ms Peterson declares that she sees a psychiatrist at the [facility] clinic in [facility]. medicated with risperdal 4 mg/hs. Last taken 2-3 days ago. Patient denies history of suicide attempts. Physical/Sexual Abuse/Trauma History: Patient denies. Additional Comment: Urine drug screen results: DILEEP-Cocaine. Noted. Mental Status Exam - Mental Status Exam Alert and Oriented to: Time, Place, Person Cognitive Function: Good Patient Appearance: Well Groomed (obese) Mood: Irritable Affect: Appropriate, Mood Congruent, Normal Range Patient Behavior: Fatigued, Cooperative Speech Pattern: Clear, Appropriate Voice Loudness: Normal Thought Process: Goal Oriented Thought Disorder: Not Present Hallucinations: Denies Suicidal Ideation: Denies Homicidal Ideation: Denies Insight/Judgement: Poor Sleep: Well Appetite: Good Muscle strength/Tone: Normal Gait/Station: Other Psychiatric Findings - Problem List ([place] 1, 2,3) (1) Alcohol dependence with uncomplicated withdrawal Current Visit: Yes Status: Acute (2) Cocaine dependence Current Visit: Yes Status: Chronic (3) Nicotine dependence Current Visit: Yes Status: Chronic Qualifiers: Nicotine product type: cigarettes Substance use status: uncomplicated Qualified Code(s): F17.210 - Nicotine dependence, cigarettes, uncomplicated (4) Drug-induced mood disorder Current Visit: Yes Status: Chronic (5) Bipolar disorder Current Visit: Yes Status: Chronic Qualifiers: Active/Remission status: currently active Current episode severity: unspecified (6) Insomnia Current Visit: Yes Status: Chronic - Initial Treatment Plan Initial Treatment Plan: Psychoeducation. Sleep hygiene. Support. AA meetings. relapse prevention (MAT options) : discussed with patient. Resume risperdal 2 mg po bid. Side effects/benefits are discussed in this session. Patient insists on the inclusion of risperdal in the current medication regimen. Observation.
[2019-01-18 10:08] LABS: ALBUMIN 3.6 g/dl (3.4-5.0); ALK PHOS 120 U/L (45-117); ANION GAP 7 MMOL/L (8-16); BILIRUBIN,TOTAL 0.4 mg/dL (0.2-1); BLOOD UREA NITROGEN 11 mg/dL (7-18); CALCIUM 9.1 mg/dL (8.5-10.1); CHLORIDE 107 mmol/L (98-107); CO2 25 mmol/L (21-32); CREATININE 0.7 mg/dL (0.55-1.3); GLUCOSE,RANDOM 120 mg/dL (74-106); POTASSIUM 4.6 mmol/L (3.5-5.1); SGOT/AST 10 U/L (15-37); SGPT/ALT 20 U/L (13-61); SODIUM 138 mmol/L (136-145)
[2019-01-18 10:09] LABS: EPI CELLS 9.4 /HPF (0-5/HPF); PH,URINE 5.5 (5.0-8.0); URINE APPEARANCE CLEAR; URINE BACTERIA 123.6 /hpf (NEGATIVE); URINE BILIRUBIN NEGATIVE (NEGATIVE); URINE CASTS 6 /hpf (0-8); URINE COLOR YELLOW; URINE GLUCOSE (UA) NEGATIVE (NEGATIVE); URINE KETONE NEGATIVE (NEGATIVE); URINE LEUK ESTERASE NEGATIVE (NEGATIVE); URINE NITRITE NEGATIVE (NEGATIVE); URINE PROTEIN NEGATIVE (NEGATIVE); URINE RBC 6 /hpf (0-4); URINE UROBILINOGEN 0.2 mg/dL (0.2-1.0); URINE WBC 2 /hpf (0-5)
[2019-01-18] MEDS: RANITIDINE HCL 150 MG TABLET (FP) PO SCH ×2 (10:17→22:23)
[2019-01-18] MEDS: LISINOPRIL 10 MG TABLET (FP) PO SCH (10:17)
[2019-01-18] MEDS: PRENATAL VITAMINS W/ FOLIC ACID TABLET (FP) PO SCH (10:17)
[2019-01-18] MEDS: risperiDONE 2 MG TABLET PO SCH (22:23)
[2019-01-18] MEDS: THIAMINE HCL 100 MG TABLET (FP) PO SCH (22:36)
[2019-01-19] MEDS: chlordiazePOXIDE HCL 25 MG CAPSULE PO SCH ×3 (05:23→17:10)
[2019-01-19] MEDS: metFORMIN HCL 500 MG TABLET (FP) PO SCH ×2 (07:07→17:10)
[2019-01-19] MEDS: risperiDONE 2 MG TABLET PO SCH ×2 (10:17→22:29)
[2019-01-19] MEDS: RANITIDINE HCL 150 MG TABLET (FP) PO SCH ×2 (10:17→22:29)
[2019-01-19] MEDS: PRENATAL VITAMINS W/ FOLIC ACID TABLET (FP) PO SCH (10:17)
[2019-01-19] MEDS: LISINOPRIL 10 MG TABLET (FP) PO SCH (10:17)
--- NOTE | 2019-01-19 11:53 | PN ---
S CIWA - CIWA Score Nausea/Vomitin-Mild Nausea/No Vomiting Muscle Tremors: 2 Anxiety: 2 Agitation: 2 Paroxysmal Sweats: 1-Minimal Palms Moist Orientation: 2-Disoriented Date<2 days Tacttile Disturbances: 0-None Auditory Disturbances: 0-None Visual Disturbances: 0-None Headache: 1-Very Mild CIWA-Ar Total Score: 11 S Progress Note (SOAP) Subjective: feeling ok social with peers in day room discuss aftercare with staff Objective: 01/19/19 11:47 Vital Signs Temperature 96.7 F L 01/19/19 09:06 Pulse Rate 78 01/19/19 09:06 Respiratory Rate 18 01/19/19 09:06 Blood Pressure 132/84 01/19/19 09:06 O2 Sat by Pulse Oximetry (%) Laboratory Last Values WBC 5.1 K/mm3 (4.0-10.0) 01/18/19 07:00 RBC 4.73 M/mm3 (3.60-5.2) 01/18/19 07:00 Hgb 14.3 GM/dL (10.7-15.3) 01/18/19 07:00 Hct 41.5 % (32.4-45.2) 01/18/19 07:00 MCV 87.8 fl (80-96) 01/18/19 07:00 MCH 30.3 pg (25.7-33.7) 01/18/19 07:00 MCHC 34.5 g/dl (32.0-36.0) 01/18/19 07:00 RDW 16.0 % (11.6-15.6) H 01/18/19 07:00 Plt Count 329 K/MM3 (134-434) D 01/18/19 07:00 MPV 8.3 fl (7.5-11.1) 01/18/19 07:00 Sodium 138 mmol/L (136-145) 01/18/19 07:00 Potassium 4.6 mmol/L (3.5-5.1) 01/18/19 07:00 Chloride 107 mmol/L (98-107) 01/18/19 07:00 Carbon Dioxide 25 mmol/L (21-32) 01/18/19 07:00 Anion Gap 7 MMOL/L (8-16) L 01/18/19 07:00 BUN 11 mg/dL (7-18) 01/18/19 07:00 Creatinine 0.7 mg/dL (0.55-1.3) 01/18/19 07:00 Creat Clearance w eGFR 87.20 (>60) 01/18/19 07:00 POC Glucometer 93 UNITS (80-120) 01/19/19 05:22 Random Glucose 120 mg/dL (74-106) H 01/18/19 07:00 Calcium 9.1 mg/dL (8.5-10.1) 01/18/19 07:00 Total Bilirubin 0.4 mg/dL (0.2-1) 01/18/19 07:00 AST 10 U/L (15-37) L 01/18/19 07:00 ALT 20 U/L (13-61) 01/18/19 07:00 Alkaline Phosphatase 120 U/L (45-117) H 01/18/19 07:00 Total Protein 7.0 g/dl (6.4-8.2) 01/18/19 07:00 Albumin 3.6 g/dl (3.4-5.0) 01/18/19 07:00 Urine Color Yellow 01/18/19 07:35 Urine Appearance Clear 01/18/19 07:35 Urine pH 5.5 (5.0-8.0) 01/18/19 07:35 Ur Specific [place] 1.022 (1.010-1.035) 01/18/19 07:35 Urine Protein Negative (NEGATIVE) 01/18/19 07:35 Urine Glucose (UA) Negative (NEGATIVE) 01/18/19 07:35 Urine Ketones Negative (NEGATIVE) 01/18/19 07:35 Urine Blood 1+ (NEGATIVE) H 01/18/19 07:35 Urine Nitrite Negative (NEGATIVE) 01/18/19 07:35 Urine Bilirubin Negative (NEGATIVE) 01/18/19 07:35 Urine Urobilinogen 0.2 mg/dL (0.2-1.0) 01/18/19 07:35 Ur Leukocyte Esterase Negative (NEGATIVE) 01/18/19 07:35 Urine WBC (Auto) 2 /hpf (0-5) 01/18/19 07:35 Urine RBC (Auto) 6 /hpf (0-4) 01/18/19 07:35 Urine Casts (Auto) 6 /hpf (0-8) 01/18/19 07:35 U Epithel Cells (Auto) 9.4 /HPF (0-5/HPF) 01/18/19 07:35 Urine Bacteria (Auto) 123.6 /hpf (NEGATIVE) 01/18/19 07:35 RPR Titer Nonreactive (NONREACTIVE) 01/18/19 07:00 HIV 1&2 Antibody Screen Negative 01/18/19 07:00 HIV P24 Antigen Negative 01/18/19 07:00 lab noted Assessment: 01/19/19 11:53 withdrawal sx Plan: continue detox
[2019-01-19] MEDS: chlordiazePOXIDE HCL 10 MG CAPSULE PO SCH (22:29)
[2019-01-19] MEDS: THIAMINE HCL 100 MG TABLET (FP) PO SCH (22:29)
[2019-01-19] MEDS ORDERED: chlordiazePOXIDE HCL 10 MG CAPSULE PO PRN (23:00)
[2019-01-20] MEDS: chlordiazePOXIDE HCL 10 MG CAPSULE PO SCH ×2 (05:26→10:04)
[2019-01-20] MEDS: metFORMIN HCL 500 MG TABLET (FP) PO SCH (07:31)
[2019-01-20] MEDS: PRENATAL VITAMINS W/ FOLIC ACID TABLET (FP) PO SCH (10:04)
[2019-01-20] MEDS: risperiDONE 2 MG TABLET PO SCH (10:04)
[2019-01-20] MEDS: RANITIDINE HCL 150 MG TABLET (FP) PO SCH (10:04)
[2019-01-20] MEDS: LISINOPRIL 10 MG TABLET (FP) PO SCH (10:04)
--- NOTE | 2019-01-20 10:26 | PN ---
S CIWA - CIWA Score Nausea/Vomitin-Mild Nausea/No Vomiting Muscle Tremors: 1-None Visible, but [place] Anxiety: 1-Mildly Anxious Agitation: 1-Slight > Activity Paroxysmal Sweats: 1-Minimal Palms Moist Orientation: 1-Uncertain about Date Tacttile Disturbances: 0-None Auditory Disturbances: 0-None Visual Disturbances: 0-None Headache: 0-None Present CIWA-Ar Total Score: 6 B[facility] Progress Note (SOAP) Subjective: feeling better today well-rested sleep better at night Objective: 01/20/19 10:25 Vital Signs Temperature 97.1 F L 01/20/19 09:15 Pulse Rate 106 H 01/20/19 09:15 Respiratory Rate 20 01/20/19 09:15 Blood Pressure 109/80 01/20/19 09:15 O2 Sat by Pulse Oximetry (%) Laboratory Last Values WBC 5.1 K/mm3 (4.0-10.0) 01/18/19 07:00 RBC 4.73 M/mm3 (3.60-5.2) 01/18/19 07:00 Hgb 14.3 GM/dL (10.7-15.3) 01/18/19 07:00 Hct 41.5 % (32.4-45.2) 01/18/19 07:00 MCV 87.8 fl (80-96) 01/18/19 07:00 MCH 30.3 pg (25.7-33.7) 01/18/19 07:00 MCHC 34.5 g/dl (32.0-36.0) 01/18/19 07:00 RDW 16.0 % (11.6-15.6) H 01/18/19 07:00 Plt Count 329 K/MM3 (134-434) D 01/18/19 07:00 MPV 8.3 fl (7.5-11.1) 01/18/19 07:00 Sodium 138 mmol/L (136-145) 01/18/19 07:00 Potassium 4.6 mmol/L (3.5-5.1) 01/18/19 07:00 Chloride 107 mmol/L (98-107) 01/18/19 07:00 Carbon Dioxide 25 mmol/L (21-32) 01/18/19 07:00 Anion Gap 7 MMOL/L (8-16) L 01/18/19 07:00 BUN 11 mg/dL (7-18) 01/18/19 07:00 Creatinine 0.7 mg/dL (0.55-1.3) 01/18/19 07:00 Creat Clearance w eGFR 87.20 (>60) 01/18/19 07:00 POC Glucometer 93 UNITS (80-120) 01/20/19 05:25 Random Glucose 120 mg/dL (74-106) H 01/18/19 07:00 Calcium 9.1 mg/dL (8.5-10.1) 01/18/19 07:00 Total Bilirubin 0.4 mg/dL (0.2-1) 01/18/19 07:00 AST 10 U/L (15-37) L 01/18/19 07:00 ALT 20 U/L (13-61) 01/18/19 07:00 Alkaline Phosphatase 120 U/L (45-117) H 01/18/19 07:00 Total Protein 7.0 g/dl (6.4-8.2) 01/18/19 07:00 Albumin 3.6 g/dl (3.4-5.0) 01/18/19 07:00 Urine Color Yellow 01/18/19 07:35 Urine Appearance Clear 01/18/19 07:35 Urine pH 5.5 (5.0-8.0) 01/18/19 07:35 Ur Specific [place] 1.022 (1.010-1.035) 01/18/19 07:35 Urine Protein Negative (NEGATIVE) 01/18/19 07:35 Urine Glucose (UA) Negative (NEGATIVE) 01/18/19 07:35 Urine Ketones Negative (NEGATIVE) 01/18/19 07:35 Urine Blood 1+ (NEGATIVE) H 01/18/19 07:35 Urine Nitrite Negative (NEGATIVE) 01/18/19 07:35 Urine Bilirubin Negative (NEGATIVE) 01/18/19 07:35 Urine Urobilinogen 0.2 mg/dL (0.2-1.0) 01/18/19 07:35 Ur Leukocyte Esterase Negative (NEGATIVE) 01/18/19 07:35 Urine WBC (Auto) 2 /hpf (0-5) 01/18/19 07:35 Urine RBC (Auto) 6 /hpf (0-4) 01/18/19 07:35 Urine Casts (Auto) 6 /hpf (0-8) 01/18/19 07:35 U Epithel Cells (Auto) 9.4 /HPF (0-5/HPF) 01/18/19 07:35 Urine Bacteria (Auto) 123.6 /hpf (NEGATIVE) 01/18/19 07:35 RPR Titer Nonreactive (NONREACTIVE) 01/18/19 07:00 HIV 1&2 Antibody Screen Negative 01/18/19 07:00 HIV P24 Antigen Negative 01/18/19 07:00 lab noted Assessment: 01/20/19 10:25 mild alcohol withdrawal sx Plan: continue detox
[2019-01-20 13:31] VITALS: BP 124/73; PULSE 111; TEMP 96
--- NOTE | 2019-01-20 15:05 | DS ---
[facility] Detox Discharge Summary Admission Date: 01/17/19 Discharge Date: 01/20/19 - History Present History: Alcohol Dependence Additional Comments: bring in medication list and lab report to aftercare appointment Pertinent Past History: patient is alert no acute distress denies suicidal ideation patient wants to go to housing case manager for housing application today - Physical Exam Results Vital Signs: Vital Signs Temperature 96 F L 01/20/19 13:30 Pulse Rate 111 H 01/20/19 13:30 Respiratory Rate 20 01/20/19 13:30 Blood Pressure 124/73 01/20/19 13:30 O2 Sat by Pulse Oximetry (%) Pertinent Admission Physical Exam Findings: alcohol withdrawal sx Laboratory Last Values WBC 5.1 K/mm3 (4.0-10.0) 01/18/19 07:00 RBC 4.73 M/mm3 (3.60-5.2) 01/18/19 07:00 Hgb 14.3 GM/dL (10.7-15.3) 01/18/19 07:00 Hct 41.5 % (32.4-45.2) 01/18/19 07:00 MCV 87.8 fl (80-96) 01/18/19 07:00 MCH 30.3 pg (25.7-33.7) 01/18/19 07:00 MCHC 34.5 g/dl (32.0-36.0) 01/18/19 07:00 RDW 16.0 % (11.6-15.6) H 01/18/19 07:00 Plt Count 329 K/MM3 (134-434) D 01/18/19 07:00 MPV 8.3 fl (7.5-11.1) 01/18/19 07:00 Sodium 138 mmol/L (136-145) 01/18/19 07:00 Potassium 4.6 mmol/L (3.5-5.1) 01/18/19 07:00 Chloride 107 mmol/L (98-107) 01/18/19 07:00 Carbon Dioxide 25 mmol/L (21-32) 01/18/19 07:00 Anion Gap 7 MMOL/L (8-16) L 01/18/19 07:00 BUN 11 mg/dL (7-18) 01/18/19 07:00 Creatinine 0.7 mg/dL (0.55-1.3) 01/18/19 07:00 Creat Clearance w eGFR 87.20 (>60) 01/18/19 07:00 POC Glucometer 93 UNITS (80-120) 01/20/19 05:25 Random Glucose 120 mg/dL (74-106) H 01/18/19 07:00 Calcium 9.1 mg/dL (8.5-10.1) 01/18/19 07:00 Total Bilirubin 0.4 mg/dL (0.2-1) 01/18/19 07:00 AST 10 U/L (15-37) L 01/18/19 07:00 ALT 20 U/L (13-61) 01/18/19 07:00 Alkaline Phosphatase 120 U/L (45-117) H 01/18/19 07:00 Total Protein 7.0 g/dl (6.4-8.2) 01/18/19 07:00 Albumin 3.6 g/dl (3.4-5.0) 01/18/19 07:00 Urine Color Yellow 01/18/19 07:35 Urine Appearance Clear 01/18/19 07:35 Urine pH 5.5 (5.0-8.0) 01/18/19 07:35 Ur Specific [place] 1.022 (1.010-1.035) 01/18/19 07:35 Urine Protein Negative (NEGATIVE) 01/18/19 07:35 Urine Glucose (UA) Negative (NEGATIVE) 01/18/19 07:35 Urine Ketones Negative (NEGATIVE) 01/18/19 07:35 Urine Blood 1+ (NEGATIVE) H 01/18/19 07:35 Urine Nitrite Negative (NEGATIVE) 01/18/19 07:35 Urine Bilirubin Negative (NEGATIVE) 01/18/19 07:35 Urine Urobilinogen 0.2 mg/dL (0.2-1.0) 01/18/19 07:35 Ur Leukocyte Esterase Negative (NEGATIVE) 01/18/19 07:35 Urine WBC (Auto) 2 /hpf (0-5) 01/18/19 07:35 Urine RBC (Auto) 6 /hpf (0-4) 01/18/19 07:35 Urine Casts (Auto) 6 /hpf (0-8) 01/18/19 07:35 U Epithel Cells (Auto) 9.4 /HPF (0-5/HPF) 01/18/19 07:35 Urine Bacteria (Auto) 123.6 /hpf (NEGATIVE) 01/18/19 07:35 RPR Titer Nonreactive (NONREACTIVE) 01/18/19 07:00 HIV 1&2 Antibody Screen Negative 01/18/19 07:00 HIV P24 Antigen Negative 01/18/19 07:00 lab noted - Treatment Hospital Course: Detox Protocol Followed, Detoxed Safely, Responded well, Discharged Condition Good, Rehab Referral Accepted Patient has Accepted a Rehab Referral to: as per counselor arrangement - Medication Discharge Medications: Ambulatory Orders Lisinopril 10 mg PO DAILY #30 tablet 04/11/18 metFORMIN HCL [Glucophage -] 500 mg PO BID #60 tablet 04/11/18 Risperidone [Risperdal -] 4 mg PO DAILY 01/17/19 - Diagnosis (1) Alcohol dependence with uncomplicated withdrawal Current Visit: Yes Status: Acute (2) GERD (gastroesophageal reflux disease) Current Visit: Yes Status: Chronic Qualifiers: Esophagitis presence: without esophagitis Qualified Code(s): K21.9 - Gastro -esophageal reflux disease without esophagitis (3) Nicotine dependence Current Visit: Yes Status: Acute Qualifiers: Nicotine product type: cigarettes Substance use status: in withdrawal Qualified Code(s): F17.213 - Nicotine dependence, cigarettes, with withdrawal (4) DM type 2 (diabetes mellitus, type 2) Current Visit: Yes Status: Chronic Qualifiers: 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 plant 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 insulin use: with glue plant operator use Diabetes mellitus complication status: without complication Qualified Code(s): E11.9 - Type 2 diabetes mellitus without complications; Z79.4 - nursing home (current) use of insulin (5) GERD (gastroesophageal reflux disease) Current Visit: Yes Status: Chronic Qualifiers: Esophagitis presence: without esophagitis Qualified Code(s): K21.9 - Gastro -esophageal reflux disease without esophagitis (6) Hypertension Current Visit: Yes Status: Chronic Qualifiers: Hypertension type: essential hypertension Qualified Code(s): I10 - Essential (primary) hypertension (7) Positive PPD, treated Current Visit: Yes Status: Resolved - AMA Did Patient Leave Against Medical Advice: No
[2019-01-20] MEDS ORDERED: chlordiazePOXIDE HCL 10 MG CAPSULE PO SCH (23:00)
== END 2019-01-20 15:19 | disposition home or self-care (01) | DRG 774 ==
LOC: YASAS 13:38 → Y3N 14:45
PROVIDERS: ADMIT Surgery; ATTEND Surgery
PROC: HZ2ZZZZ Detoxification Services for Substance Abuse Treatment (ICD-10-PCS; principal; 2019-01-17)
DX: F10.230 Alcohol dependence with withdrawal, uncomplicated (principal); F14.20 Cocaine dependence, uncomplicated; F17.213 Nicotine dependence, cigarettes, with withdrawal; F25.9 Schizoaffective disorder, unspecified; F31.9 Bipolar disorder, unspecified; F19.24 Other psychoactive substance dependence with psychoactive substance-induced mood disorder; G47.00 Insomnia, unspecified; I10 Essential (primary) hypertension; E11.9 Type 2 diabetes mellitus without complications; Z79.4 Long term (current) use of insulin; R76.11 Nonspecific reaction to tuberculin skin test without active tuberculosis
CPT/HCPCS: 36415; 71045-TC-FY; 80053; 81003; 82962; 85027; 86593; 87389

== ENCOUNTER 2019-06-25 11:01 | Inpatient (IN) | payer OTHER ==
[2019-06-25 12:55] VITALS: BMI 30.4
--- NOTE | 2019-06-25 14:44 | HP ---
CIWA Score Nausea/Vomitin-No Nausea/No Vomiting Muscle Tremors: 1-None Visible, but [place] Anxiety: 2 Agitation: 4-Moderately Restless Paroxysmal Sweats: 2 Orientation: 2-Disoriented Date<2 days Tacttile Disturbances: 0-None Auditory Disturbances: 0-None Visual Disturbances: 0-None Headache: 2-Mild CIWA-Ar Total Score: 13 - Admission Criteria OASAS Guidelines: Admission for Medically Managed Detox: Requires at least one of the followin. CIWA greater than 12 2. Seizures within the past 24 hours 3. Delirium tremens within the past 24 hours 4. Hallucinations within the past 24 hours 5. Acute intervention needed for co occurring medical disorder 6. Acute intervention needed for co occurring psychiatric disorder 7. Severe withdrawal that cannot be handled at a lower level of care (continued vomiting, continued diarrhea, abnormal vital signs) requiring intravenous medication and/or fluids 8. Admission ROS [facility] - HPI Allergies/Adverse Reactions: Allergies Allergy/AdvReac Type Severity Reaction Status Date / Time No Known Allergies Allergy Verified 06/25/19 12:45 History of Present Illness: 53 y.o. female requesting detox from etoh use , reports 4 x 1/2 pints liquor and " some beers " daily , relapsed 3 mo ago , current symptoms as above, prior detox at this facility January 2019 , denies interim detox. Denies blackouts or seizures, + tremors, starts drinking around 4 am , latest use yesterday. Longest sobreity 2.5 years w/ meetings " i don't remember whn I am not good with dates " PMHx : hypertension,type 2 dm,gerd , anxiety,insomnia Exam Limitations: Clinical Condition - Ebola screening Have you traveled outside of the country in the last 21 days: No Have you had contact with anyone from an Ebola affected area: No Do you have a fever: No - Review of Systems Constitutional: No Symptoms Reported EENT: reports: Other (glasses dentures- upper) Respiratory: reports: No Symptoms reported Cardiac: reports: No Symptoms Reported GI: reports: See HPI, Constipated : reports: No Symptoms Reported Musculoskeletal: reports: Joint Pain (gera shoulders - chronic) Integumentary: reports: Other (left hand burn - oven - recently ( yesterday ) ) Neuro: reports: Headache Endocrine: reports: See HPI Psychiatric: reports: Orientated x3, Agitated, Anxious Patient History - Patient Medical History Hx Anemia: No Hx Asthma: No Hx Chronic Obstructive Pulmonary Disease (COPD): No Hx Cancer: No Hx Cardiac Disorders: No Hx Congestive Heart Failure: No Hx Hypertension: Yes (NON-COMPLIANT WITH MEDICATION) Hx Hypercholesterolemia: No Hx Pacemaker: No HX Cerebrovascular Accident: No Hx Seizures: No Hx Dementia: No Hx Diabetes: Yes (ON metformin 500 mgs po bid) Hx Gastrointestinal Disorders: Yes Hx Liver Disease: No Hx Genitourinary Disorders: No Hx Sexually Transmitted Disorders: No Hx Renal Disease (ESRD): No Hx Thyroid Disease: No Hx Human Immunodeficiency Virus (HIV): No (last 09/22 negative) Hx Hepatitis C: No Hx Depression: No (Bipolar) Hx Suicide Attempt: No Hx Bipolar Disorder: Yes (abilify use not complaint ) Hx Schizophrenia: No - Patient Surgical History Past Surgical History: Yes Hx Neurologic Surgery: No Hx Cataract Extraction: No Hx Cardiac Surgery: No Hx Lung Surgery: No Hx Breast Surgery: No Hx Breast Biopsy: No Hx Abdominal Surgery: No Hx Appendectomy: No Hx Cholecystectomy: No Hx Genitourinary Surgery: No Hx Section: No Hx Orthopedic Surgery: No Hx Hysterectomy: No Other Surgical History: SX FOR PILONIDAL CYST IN 1986 Anesthesia Reaction: No - Reproductive History Last Menstrual Period: 11/17/17 - Smoking Cessation Smoking history: Current every day smoker Have you smoked in the past 12 months: Yes Aproximately how many cigarettes per day: 7 Hx Chewing Tobacco Use: No Initiated information on smoking cessation: No - Substances abused Alcohol Substance route: Oral Frequency: Daily Amount used: $30 worth of beer Age of first use: 15 Date of last use: 06/24/19 Cocaine Substance route: Inhalation Frequency: Daily Amount used: $200 Age of first use: 21 Date of last use: 06/24/19 Admission Physical Exam BHS - Vital Signs Vital Signs: Vital Signs - 24 hr 06/25/19 12:49 Temperature 97.7 F Pulse Rate 84 Respiratory 14 Rate Blood Pressure 135/88 - Physical General Appearance: Yes: Mild Distress HEENTM: Yes: EOMI, Hearing grossly Normal, Normocephalic, Normal Voice, Other ( upper dentures) Respiratory: Yes: Chest Non-Tender, Lungs Clear, Normal Breath Sounds, No Respiratory Distress, No Accessory Muscle Use Neck: Yes: No masses,lesions,Nodules, Trachea in good position Cardiology: Yes: Regular Rhythm, Regular Rate, S1, S2 Abdominal: Yes: Normal Bowel Sounds, Non Tender, Soft Musculoskeletal: Yes: Gait Steady Extremities: Yes: Normal Range of Motion, Non-Tender Neurological: Yes: Alert, Motor Strength 5/5 Integumentary: Yes: Warm, Other (superficial burn dorsum of left hand 1 cm x 10 cm) - Diagnostic (1) Alcohol dependence with uncomplicated withdrawal Current Visit: Yes Status: Chronic (2) Nicotine dependence Current Visit: Yes Status: Chronic Qualifiers: Nicotine product type: cigarettes (3) Cannabis dependence Current Visit: Yes Status: Chronic (4) Cocaine dependence Current Visit: Yes Status: Chronic Breathalyzer - Breathalyzer Breathalyzer: 0 POC Urine test - Test device test lot number: [id number] Expiration date: 06/05/20 - Control test control: Yes Urine Drug Screen - Test Device Lot number: [id number] Expiration date: 03/05/21 - Control Is test valid?: Yes - Results Drug screen NEGATIVE: No Urine drug screen results: THC-Marijuana, DILEEP-Cocaine Inpatient Rehab Admission - Rehab Decision to Admit Inpatient rehab admission?: No
[2019-06-25] MEDS ORDERED: MAGNESIUM CITRATE 300 ML BOTTLE PO PRN (14:48)
[2019-06-25] MEDS ORDERED: MAGNESIUM HYDROX 2400MG/30ML ORAL SUSPENSION 30 ML CUP PO PRN (14:48)
[2019-06-25] MEDS ORDERED: BISMUTH SUBSALICYLATE 524 MG/30 ML UD PO PRN (14:48)
[2019-06-25] MEDS ORDERED: ACETAMINOPHEN 325 MG TABLET (FP) PO PRN (14:48)
[2019-06-25] MEDS ORDERED: MENTHOL/PHENOL 1 EACH UD MM PRN (14:48)
[2019-06-25] MEDS ORDERED: hydrOXYzine PAMOATE 25 MG CAPSULE (FP) PO PRN (14:48)
[2019-06-25] MEDS ORDERED: MELATONIN 5 MG TABLETS PO PRN (14:48)
[2019-06-25] MEDS ORDERED: IBUPROFEN 400 MG TABLET (FP) PO PRN (14:48)
[2019-06-25] MEDS ORDERED: METHOCARBAMOL 500 MG TABLET PO PRN (14:48)
[2019-06-25] MEDS ORDERED: MAG HYDROX/AL HYDROX/SIMETH 30 ML UNIT-DOSE CUP PO PRN (14:48)
[2019-06-25] MEDS ORDERED: chlordiazePOXIDE HCL 10 MG CAPSULE PO PRN (15:27)
[2019-06-25] MEDS: metFORMIN HCL 500 MG TABLET (FP) PO SCH (17:52)
[2019-06-25] MEDS: LISINOPRIL 10 MG TABLET (FP) PO SCH (17:52)
[2019-06-25] MEDS: ACETAMINOPHEN 325 MG TABLET (FP) PO PRN ×2 (17:53→23:02)
[2019-06-25] MEDS: chlordiazePOXIDE HCL 25 MG CAPSULE PO SCH (22:00)
[2019-06-25] MEDS ORDERED: THIAMINE HCL 100 MG TABLET (FP) PO SCH (22:00)
[2019-06-25] MEDS: BACITRACIN/POLYMYXIN B SULFATE 15 GM TUBE TP SCH (23:01)
[2019-06-26] MEDS: chlordiazePOXIDE HCL 25 MG CAPSULE PO SCH ×2 (05:46→13:13)
[2019-06-26] MEDS: metFORMIN HCL 500 MG TABLET (FP) PO SCH (07:56)
[2019-06-26] MEDS ORDERED: PRENATAL VITAMINS W/ FOLIC ACID TABLET (FP) PO SCH (10:00)
[2019-06-26] MEDS: BACITRACIN/POLYMYXIN B SULFATE 15 GM TUBE TP SCH (10:12)
[2019-06-26] MEDS: LISINOPRIL 10 MG TABLET (FP) PO SCH (10:13)
[2019-06-26 11:15] LABS: HEMATOCRIT 44.4 % (32.4-45.2); HEMOGLOBIN 15.8 GM/dL (10.7-15.3); MCH 32.3 pg (25.7-33.7); MCHC 35.5 g/dl (32.0-36.0); MEAN CELL VOLUME 90.8 fl (80-96); MEAN PLT VOLUME 8.4 fl (7.5-11.1); PLATELET COUNT 287 K/MM3 (134-434); RBC 4.89 M/mm3 (3.60-5.2); WHITE BLOOD COUNT 5.3 K/mm3 (4.0-10.0)
[2019-06-26 11:29] LABS: ALBUMIN 3.6 g/dl (3.4-5.0); BILIRUBIN,TOTAL 0.4 mg/dL (0.2-1); BLOOD UREA NITROGEN 9.1 mg/dL (7-18); CALCIUM 9.7 mg/dL (8.5-10.1); CREATININE 0.7 mg/dL (0.55-1.3); POTASSIUM 4.6 mmol/L (3.5-5.1); TOT PROT 6.9 g/dl (6.4-8.2)
--- NOTE | 2019-06-26 12:46 | PN ---
S CIWA - CIWA Score Nausea/Vomitin-No Nausea/No Vomiting Muscle Tremors: None Anxiety: 3 Agitation: 2 Paroxysmal Sweats: 3 Orientation: 0-Oriented Tacttile Disturbances: 0-None Auditory Disturbances: 0-None Visual Disturbances: 0-None Headache: 2-Mild CIWA-Ar Total Score: 10 S Progress Note (SOAP) Subjective: c/o sweats, anxiety, headache, interrupted sleep. Objective: 06/26/19 12:45 Vital Signs 06/26/19 06/26/19 06:00 09:48 Temperature 97.9 F 97.9 F Pulse Rate 80 67 Respiratory 18 18 Rate Blood Pressure 136/77 131/89 Lab Results WBC 5.3 K/mm3 (4.0-10.0) 06/26/19 08:00 RBC 4.89 M/mm3 (3.60-5.2) 06/26/19 08:00 Hgb 15.8 GM/dL (10.7-15.3) H 06/26/19 08:00 Hct 44.4 % (32.4-45.2) 06/26/19 08:00 MCV 90.8 fl (80-96) 06/26/19 08:00 MCHC 35.5 g/dl (32.0-36.0) 06/26/19 08:00 RDW 15.0 % (11.6-15.6) 06/26/19 08:00 Plt Count 287 K/MM3 (134-434) 06/26/19 08:00 Sodium 136 mmol/L (136-145) 06/26/19 08:00 Potassium 4.6 mmol/L (3.5-5.1) 06/26/19 08:00 Chloride 106 mmol/L (98-107) 06/26/19 08:00 Carbon Dioxide 24 mmol/L (21-32) 06/26/19 08:00 Anion Gap 6 MMOL/L (8-16) L 06/26/19 08:00 BUN 9.1 mg/dL (7-18) 06/26/19 08:00 Creatinine 0.7 mg/dL (0.55-1.3) 06/26/19 08:00 Random Glucose 98 mg/dL (74-106) 06/26/19 08:00 Calcium 9.7 mg/dL (8.5-10.1) 06/26/19 08:00 Labs noted. Assessment: 06/26/19 12:45 AOX3, in no acute distress. Full ROM, ambulating in the unit. Withdrawal symptoms. Plan: continue detox.
--- NOTE | 2019-06-26 15:24 | DS ---
[facility] Detox Discharge Summary Admission Date: 06/25/19 Discharge Date: 06/26/19 (Left AMA) - History Present History: Alcohol Dependence, Cocaine Dependence Additional Comments: Pt left AMA, did not complete her detox protocol. Pt states, "i have to leave to take care of something". An attempt to let pt stay and complete her detox protocol failed. Pt is encouraged to follow-up with outpatient CD program and also to follow-up with her PMD. Pt was adamant about the information given. Pt is alert and oriented x3 and in no respiratory distress. Pertinent Past History: H/O HTN, DM, alcohol, and cocaine use disorder. - Physical Exam Results Vital Signs: Vital Signs Temperature 97.9 F 06/26/19 09:48 Pulse Rate 67 06/26/19 09:48 Respiratory Rate 18 06/26/19 09:48 Blood Pressure 131/89 06/26/19 09:48 O2 Sat by Pulse Oximetry (%) Vital Signs 06/26/19 09:48 Temperature 97.9 F Pulse Rate 67 Respiratory 18 Rate Blood Pressure 131/89 Lab Results WBC 5.3 K/mm3 (4.0-10.0) 06/26/19 08:00 RBC 4.89 M/mm3 (3.60-5.2) 06/26/19 08:00 Hgb 15.8 GM/dL (10.7-15.3) H 06/26/19 08:00 Hct 44.4 % (32.4-45.2) 06/26/19 08:00 MCV 90.8 fl (80-96) 06/26/19 08:00 MCHC 35.5 g/dl (32.0-36.0) 06/26/19 08:00 RDW 15.0 % (11.6-15.6) 06/26/19 08:00 Plt Count 287 K/MM3 (134-434) 06/26/19 08:00 Sodium 136 mmol/L (136-145) 06/26/19 08:00 Potassium 4.6 mmol/L (3.5-5.1) 06/26/19 08:00 Chloride 106 mmol/L (98-107) 06/26/19 08:00 Carbon Dioxide 24 mmol/L (21-32) 06/26/19 08:00 Anion Gap 6 MMOL/L (8-16) L 06/26/19 08:00 BUN 9.1 mg/dL (7-18) 06/26/19 08:00 Creatinine 0.7 mg/dL (0.55-1.3) 06/26/19 08:00 Random Glucose 98 mg/dL (74-106) 06/26/19 08:00 Calcium 9.7 mg/dL (8.5-10.1) 06/26/19 08:00 Labs noted. Pertinent Admission Physical Exam Findings: withdrawal symptoms. - Treatment Hospital Course: Detox Protocol Followed - Medication Discharge Medications: Ambulatory Orders Lisinopril 10 mg PO DAILY #30 tablet 04/11/18 metFORMIN HCL [Glucophage -] 500 mg PO BID #60 tablet 04/11/18 Risperidone [Risperdal -] 4 mg PO DAILY 01/17/19 - Diagnosis (1) Alcohol dependence with uncomplicated withdrawal Current Visit: Yes Status: Chronic (2) Cannabis dependence Current Visit: Yes Status: Chronic (3) Cocaine dependence Current Visit: Yes Status: Chronic (4) Nicotine dependence Current Visit: Yes Status: Chronic Qualifiers: Nicotine product type: cigarettes (5) DM type 2 (diabetes mellitus, type 2) Current Visit: No Status: Chronic Qualifiers: Diabetes mellitus long term care pharmacist insulin use: with long term care pharmacist use Diabetes mellitus complication status: without complication Qualified Code(s): E11.9 - Type 2 diabetes mellitus without complications; Z79.4 - alf (current) use of insulin (6) GERD (gastroesophageal reflux disease) Current Visit: No Status: Chronic Qualifiers: Esophagitis presence: without esophagitis Qualified Code(s): K21.9 - Gastro -esophageal reflux disease without esophagitis (7) Hypertension Current Visit: No Status: Chronic Qualifiers: Hypertension type: essential hypertension Qualified Code(s): I10 - Essential (primary) hypertension (8) Obesity Current Visit: No Status: Chronic Qualifiers: Obesity type: due to excess calories - AMA Did Patient Leave Against Medical Advice: Yes
[2019-06-26 15:52] VITALS: BP 134/70; PULSE 71; TEMP 98.1
[2019-06-27] MEDS ORDERED: chlordiazePOXIDE 5 MG CAPSULE PO SCH (05:00)
[2019-06-28] MEDS ORDERED: chlordiazePOXIDE HCL 10 MG CAPSULE PO PRN
[2019-06-28] MEDS ORDERED: chlordiazePOXIDE HCL 10 MG CAPSULE PO ONE (05:00)
== END 2019-06-26 14:58 | disposition left against medical advice (07) | DRG 770 ==
LOC: YASAS 11:01 → Y6N 15:31
PROVIDERS: ADMIT Surgery; ATTEND Surgery
PROC: HZ2ZZZZ Detoxification Services for Substance Abuse Treatment (ICD-10-PCS; principal; 2019-06-25)
DX: F10.230 Alcohol dependence with withdrawal, uncomplicated (principal); F14.20 Cocaine dependence, uncomplicated; F12.20 Cannabis dependence, uncomplicated; F17.210 Nicotine dependence, cigarettes, uncomplicated; F31.9 Bipolar disorder, unspecified; I10 Essential (primary) hypertension; E11.9 Type 2 diabetes mellitus without complications; Z79.84 Long term (current) use of oral hypoglycemic drugs; K21.9 Gastro-esophageal reflux disease without esophagitis; E66.9 Obesity, unspecified; Z68.30 Body mass index [BMI] 30.0-30.9, adult
CPT/HCPCS: 36415; 80053; 81025; 82962; 85027; 86593

== ENCOUNTER 2019-08-27 09:06 | Inpatient (IN) | payer OTHER ==
[2019-08-27 09:43] VITALS: BMI 28.3
--- NOTE | 2019-08-27 10:19 | HP ---
"CIWA Score Nausea/Vomitin-Int. Nausea w/Dry Heave Muscle Tremors: 2 Anxiety: 2 Agitation: 0-Normal Activity Paroxysmal Sweats: 1-Minimal Palms Moist Orientation: 0-Oriented Tacttile Disturbances: 0-None Auditory Disturbances: 0-None Visual Disturbances: 0-None Headache: 3-Moderate CIWA-Ar Total Score: 12 - Admission Criteria OASAS Guidelines: Admission for Medically Managed Detox: Requires at least one of the followin. CIWA greater than 12 2. Seizures within the past 24 hours 3. Delirium tremens within the past 24 hours 4. Hallucinations within the past 24 hours 5. Acute intervention needed for co occurring medical disorder 6. Acute intervention needed for co occurring psychiatric disorder 7. Severe withdrawal that cannot be handled at a lower level of care (continued vomiting, continued diarrhea, abnormal vital signs) requiring intravenous medication and/or fluids 8. Admitting History and Physical - Past Medical History ...LMP: 11/17/17 - Smoking History Smoking history: Current every day smoker Have you smoked in the past 12 months: Yes Aproximately how many cigarettes per day: 7 - Alcohol/Substance Use Hx Alcohol Use: Yes Admission ROS [facility] - HPI Allergies/Adverse Reactions: Allergies Allergy/AdvReac Type Severity Reaction Status Date / Time No Known Allergies Allergy Verified 08/27/19 09:27 History of Present Illness: earch Terms: oscar peres, 1965 Search Date: 08/27/2019 10:17:56 AM This report was requested by: Marsha Hood | Reference #: [id number] There are no results for the search terms that you entered. 53 y.o. female requesting detox from etoh use , reports 4 x 40 oz beer and 10 nips/day , latest use yesterday , 1/2 relapsed after d/c from [facility] facility Jun 2019 , left AMA , current symptoms as above, denies interim detox. Denies blackouts or seizures, + tremors, starts drinking around 4 am , latest use this morning PMHx : hypertension,type 2 dm,gerd , anxiety,insomnia Exam Limitations: Clinical Condition - Ebola screening Have you traveled outside of the country in the last 21 days: No Have you had contact with anyone from an Ebola affected area: No Do you have a fever: No - Review of Systems Constitutional: See HPI EENT: reports: Other (glasses upper dentures) Respiratory: reports: No Symptoms reported Cardiac: reports: No Symptoms Reported GI: reports: See HPI : reports: No Symptoms Reported Musculoskeletal: reports: Back Pain (chronic) Integumentary: reports: No Symptoms Reported Neuro: reports: See HPI, Headache, Tremors Endocrine: reports: See HPI Psychiatric: reports: Orientated x3, Agitated Patient History - Patient Medical History Hx Anemia: No Hx Asthma: No Hx Chronic Obstructive Pulmonary Disease (COPD): No Hx Cancer: No Hx Cardiac Disorders: No Hx Congestive Heart Failure: No Hx Hypertension: Yes (NON-COMPLIANT WITH MEDICATION) Hx Hypercholesterolemia: No Hx Pacemaker: No HX Cerebrovascular Accident: No Hx Seizures: No Hx Dementia: No Hx Diabetes: Yes (ON metformin 500 mgs po bid) Hx Gastrointestinal Disorders: Yes Hx Liver Disease: No Hx Genitourinary Disorders: No Hx Sexually Transmitted Disorders: No Hx Renal Disease (ESRD): No Hx Thyroid Disease: No Hx Human Immunodeficiency Virus (HIV): No (last 09/22 negative) Hx Hepatitis C: No Hx Depression: No (Bipolar) Hx Suicide Attempt: No Hx Bipolar Disorder: Yes (abilify use not complaint ) Hx Schizophrenia: No - Patient Surgical History Past Surgical History: Yes Hx Neurologic Surgery: No Hx Cataract Extraction: No Hx Cardiac Surgery: No Hx Lung Surgery: No Hx Breast Surgery: No Hx Breast Biopsy: No Hx Abdominal Surgery: No Hx Appendectomy: No Hx Cholecystectomy: No Hx Genitourinary Surgery: No Hx Section: No Hx Orthopedic Surgery: No Hx Hysterectomy: No Other Surgical History: SX FOR PILONIDAL CYST IN 1986 Anesthesia Reaction: No - Reproductive History Last Menstrual Period: 11/17/17 - Smoking Cessation Smoking history: Current every day smoker Have you smoked in the past 12 months: Yes Aproximately how many cigarettes per day: 7 Hx Chewing Tobacco Use: No Initiated information on smoking cessation: Yes 'Breaking Loose' booklet given: 08/27/19 - Substances abused Alcohol Substance route: Oral Frequency: Daily Amount used: 5 beers Age of first use: 15 Date of last use: 08/27/19 Cocaine Substance route: Smoking Frequency: Daily Amount used: $20 Age of first use: 21 Date of last use: 08/26/19 Marijuana/Hashish Substance route: Smoking Frequency: Daily Amount used: 1/2 joint Age of first use: 15 Date of last use: 08/26/19 Admission Physical Exam BHS - Vital Signs Vital Signs: Vital Signs - 24 hr 08/27/19 09:26 Temperature 98.6 F Pulse Rate 97 H Respiratory 20 Rate Blood Pressure 131/82 - Physical General Appearance: Yes: Mild Distress, Anxious HEENTM: Yes: EOMI, Hearing grossly Normal, Normocephalic, Normal Voice, Other ( upper dentures) Respiratory: Yes: Chest Non-Tender, Lungs Clear, Normal Breath Sounds, No Respiratory Distress, No Accessory Muscle Use Neck: Yes: No masses,lesions,Nodules, Trachea in good position Cardiology: Yes: Regular Rhythm, Regular Rate, S1, S2, Tachycardia Abdominal: Yes: Non Tender, Soft, Protuberent Extremities: Yes: Normal Range of Motion, Non-Tender Neurological: Yes: Fully Oriented, Alert, Motor Strength 5/5 Integumentary: Yes: Warm - Diagnostic (1) Alcohol dependence with uncomplicated withdrawal Current Visit: Yes Status: Chronic (2) Cannabis dependence Current Visit: Yes Status: Chronic (3) Cocaine dependence Current Visit: Yes Status: Chronic (4) Nicotine dependence Current Visit: Yes Status: Chronic Qualifiers: Nicotine product type: cigarettes Breathalyzer - Breathalyzer Breathalyzer: 0 POC Urine test - Test device test lot number: [id number] Expiration date: 06/05/20 - Control test control: Yes Urine Drug Screen - Test Device Lot number: [id number] Expiration date: 05/05/21 - Control Is test valid?: Yes - Results Drug screen NEGATIVE: No Urine drug screen results: THC-Marijuana, DILEEP-Cocaine Inpatient Rehab Admission - Rehab Decision to Admit Inpatient rehab admission?: No"
[2019-08-27] MEDS ORDERED: MAGNESIUM CITRATE 300 ML BOTTLE PO PRN (10:37)
[2019-08-27] MEDS ORDERED: hydrOXYzine PAMOATE 25 MG CAPSULE (FP) PO PRN (10:37)
[2019-08-27] MEDS ORDERED: ACETAMINOPHEN 325 MG TABLET (FP) PO PRN ×2 (10:37)
[2019-08-27] MEDS ORDERED: IBUPROFEN 400 MG TABLET (FP) PO PRN (10:37)
[2019-08-27] MEDS ORDERED: MAGNESIUM HYDROX 2400MG/30ML ORAL SUSPENSION 30 ML CUP PO PRN (10:37)
[2019-08-27] MEDS ORDERED: METHOCARBAMOL 500 MG TABLET PO PRN (10:37)
[2019-08-27] MEDS ORDERED: MENTHOL/PHENOL 1 EACH UD MM PRN (10:37)
[2019-08-27] MEDS ORDERED: chlordiazePOXIDE HCL 10 MG CAPSULE PO PRN (10:39)
[2019-08-27] MEDS: metFORMIN HCL 500 MG TABLET (FP) PO SCH ×2 (12:36→17:06)
[2019-08-27] MEDS: LISINOPRIL 10 MG TABLET (FP) PO SCH (12:36)
[2019-08-27] MEDS: chlordiazePOXIDE HCL 25 MG CAPSULE PO SCH ×2 (12:37→22:13)
[2019-08-27] MEDS: MAG HYDROX/AL HYDROX/SIMETH 30 ML UNIT-DOSE CUP PO PRN (14:25)
[2019-08-27 15:19] LABS: ALBUMIN 3.8 g/dl (3.4-5.0); BILIRUBIN,TOTAL 0.8 mg/dL (0.2-1); BLOOD UREA NITROGEN 8.4 mg/dL (7-18); CALCIUM 9.6 mg/dL (8.5-10.1); CREATININE 0.8 mg/dL (0.55-1.3); TOT PROT 7.2 g/dl (6.4-8.2)
[2019-08-27 15:28] LABS: HEMATOCRIT 44.6 % (32.4-45.2); HEMOGLOBIN 15.7 GM/dL (10.7-15.3); MCH 31.9 pg (25.7-33.7); MCHC 35.3 g/dl (32.0-36.0); MEAN CELL VOLUME 90.1 fl (80-96); MEAN PLT VOLUME 8.2 fl (7.5-11.1); PLATELET COUNT 321 K/MM3 (134-434); RBC 4.94 M/mm3 (3.60-5.2); RDW 14.1 % (11.6-15.6); WHITE BLOOD COUNT 7.1 K/mm3 (4.0-10.0)
[2019-08-27] MEDS: BISMUTH SUBSALICYLATE 262 MG/15 ML BTL PO PRN (17:08)
--- NOTE | 2019-08-27 17:26 | CONSULT ---
[facility] Psychiatric Consult - Data Date of interview: 08/27/19 Admission source: [facility] Identifying data: Readmission to [facility] for this 53 y/o AA female self- referred for detoxification treatment (alcohol, cannabis, nicotine, cocaine). Interviewed at [address] [place] [address]. Patient is , a mother of one, domiciled, unemployed and supported on welfare. Substance Abuse History: Discussed with the patient. Details in current [facility] report. As follows : Smoking history: Current every day smoker. Have you smoked in the past 12 months: Yes. Aproximately how many cigarettes per day: 7. Hx Chewing Tobacco Use: No. Initiated information on smoking cessation: Yes. 'Breaking Loose' booklet given: 08/27/19. - Substances abused. Alcohol. Substance route: Oral. Frequency: Daily. Amount used: 5 beers. Age of first use: 15. Date of last use: 08/27/19. Cocaine. Substance route: Smoking. Frequency: Daily. Amount used: $20. Age of first use: 21. Date of last use: 08/26/19. Marijuana/Hashish. Substance route: Smoking. Frequency : Daily. Amount used: 1/2 joint. Age of first use: 15. Date of last use: Medical History: Medical profile is remarkable for GERD, diabetes mellitus, hypertension, varicose veins, uterine fibroids, history of surgical excision of a pilonidal cyst and positive PPD. Psychiatric History: History of multiple psychiatric hospitalizations ( [facility]). Diagnosed with Bipolar Disorder (1996). Ms Peterson declares that she sees a psychiatrist at the [facility] in [facility]. Prescribed a regimen of risperdal (dose not recalled by patient) . Last taken three weeks ago (self-report). " I have not seen my psychiatrist for a while ". Patient denies history of suicide attempts. Physical/Sexual Abuse/Trauma History: Not discussed. Patient declines. Additional Comment: Urine drug screen results: THC-Marijuana, DILEEP-Cocaine. Noted. Mental Status Exam - Mental Status Exam Alert and Oriented to: Time, Place, Person Cognitive Function: Good Patient Appearance: Well Groomed Mood: Hopeful Affect: Appropriate, Normal Range Patient Behavior: Fatigued, Appropriate, Cooperative Speech Pattern: Clear, Appropriate Voice Loudness: Normal Thought Process: Goal Oriented Thought Disorder: Not Present Hallucinations: Denies Suicidal Ideation: Denies Homicidal Ideation: Denies Insight/Judgement: Poor Sleep: Fair Appetite: Good Gait/Station: Normal Psychiatric Findings - Problem List ([place] 1, 2,3) (1) Alcohol dependence with uncomplicated withdrawal Current Visit: Yes Status: Acute (2) Cannabis dependence Current Visit: Yes Status: Chronic (3) Cocaine dependence Current Visit: Yes Status: Chronic (4) Nicotine dependence Current Visit: Yes Status: Chronic Qualifiers: Nicotine product type: cigarettes (5) History of bipolar disorder Current Visit: Yes Status: Chronic (6) Insomnia Current Visit: Yes Status: Chronic (7) Non-compliance Current Visit: Yes Status: Chronic - Initial Treatment Plan Initial Treatment Plan: Psychoeducation. Sleep hygiene. Detoxification. AA meetings. Insomnia is addressed with melatonin at bedtime. Patient declines to resume risperdal. Observation.
[2019-08-27] MEDS: THIAMINE HCL 100 MG TABLET (FP) PO SCH (22:13)
[2019-08-27] MEDS: MELATONIN 5 MG TABLETS PO PRN (22:14)
[2019-08-28] MEDS: chlordiazePOXIDE HCL 25 MG CAPSULE PO SCH (05:41)
[2019-08-28] MEDS: chlordiazePOXIDE 5 MG CAPSULE PO SCH ×3 (05:43→22:08)
[2019-08-28] MEDS: metFORMIN HCL 500 MG TABLET (FP) PO SCH ×2 (06:02→17:16)
[2019-08-28] MEDS: PRENATAL VITAMINS W/ FOLIC ACID TABLET (FP) PO SCH (10:38)
[2019-08-28] MEDS: LISINOPRIL 10 MG TABLET (FP) PO SCH (10:38)
[2019-08-28] MEDS: BISMUTH SUBSALICYLATE 262 MG/15 ML BTL PO PRN ×2 (10:39→14:42)
--- NOTE | 2019-08-28 13:15 | PN ---
S CIWA - CIWA Score Nausea/Vomitin-No Nausea/No Vomiting Muscle Tremors: 2 Anxiety: 3 Agitation: 0-Normal Activity Paroxysmal Sweats: 3 Orientation: 0-Oriented Tacttile Disturbances: 0-None Auditory Disturbances: 0-None Visual Disturbances: 0-None Headache: 2-Mild CIWA-Ar Total Score: 10 S Progress Note (SOAP) Subjective: c/o anxiety, headache, shakes, and sweats. Objective: 08/28/19 13:16 Vital Signs 08/28/19 08/28/19 06:47 09:28 Temperature 96.7 F L 97.4 F L Pulse Rate 92 H 76 Respiratory 18 18 Rate Blood Pressure 101/67 121/76 Laboratory Last Values WBC 7.1 K/mm3 (4.0-10.0) 08/27/19 11:00 RBC 4.94 M/mm3 (3.60-5.2) 08/27/19 11:00 Hgb 15.7 GM/dL (10.7-15.3) H 08/27/19 11:00 Hct 44.6 % (32.4-45.2) 08/27/19 11:00 MCV 90.1 fl (80-96) 08/27/19 11:00 MCH 31.9 pg (25.7-33.7) 08/27/19 11:00 MCHC 35.3 g/dl (32.0-36.0) 08/27/19 11:00 RDW 14.1 % (11.6-15.6) 08/27/19 11:00 Plt Count 321 K/MM3 (134-434) 08/27/19 11:00 MPV 8.2 fl (7.5-11.1) 08/27/19 11:00 Sodium 138 mmol/L (136-145) 08/27/19 11:00 Potassium 4.0 mmol/L (3.5-5.1) 08/27/19 11:00 Chloride 106 mmol/L (98-107) 08/27/19 11:00 Carbon Dioxide 26 mmol/L (21-32) 08/27/19 11:00 Anion Gap 7 MMOL/L (8-16) L 08/27/19 11:00 BUN 8.4 mg/dL (7-18) 08/27/19 11:00 Creatinine 0.8 mg/dL (0.55-1.3) 08/27/19 11:00 Est GFR (CKD-EPI)AfAm 96.87 08/27/19 11:00 Est GFR (CKD-EPI)NonAf 83.58 08/27/19 11:00 POC Glucometer 132 UNITS (80-120) 08/27/19 17:05 Random Glucose 109 mg/dL (74-106) H 08/27/19 11:00 Calcium 9.6 mg/dL (8.5-10.1) 08/27/19 11:00 Total Bilirubin 0.8 mg/dL (0.2-1) 08/27/19 11:00 AST 15 U/L (15-37) 08/27/19 11:00 ALT 31 U/L (13-61) 08/27/19 11:00 Alkaline Phosphatase 116 U/L (45-117) 08/27/19 11:00 Total Protein 7.2 g/dl (6.4-8.2) 08/27/19 11:00 Albumin 3.8 g/dl (3.4-5.0) 08/27/19 11:00 Labs noted. Assessment: 08/28/19 13:16 AOX3, in no acute respiratory distress. Full ROM, ambulating in the unit. withdrawal symptoms. Plan: continue detox.
[2019-08-28] MEDS: THIAMINE HCL 100 MG TABLET (FP) PO SCH (22:08)
[2019-08-28] MEDS: MELATONIN 5 MG TABLETS PO PRN (22:09)
[2019-08-29] MEDS: chlordiazePOXIDE HCL 10 MG CAPSULE PO SCH ×3 (05:59→22:50)
[2019-08-29] MEDS: metFORMIN HCL 500 MG TABLET (FP) PO SCH ×2 (06:49→15:49)
[2019-08-29] MEDS: BISMUTH SUBSALICYLATE 262 MG/15 ML BTL PO PRN (10:25)
[2019-08-29] MEDS: LISINOPRIL 10 MG TABLET (FP) PO SCH (10:25)
[2019-08-29] MEDS: PRENATAL VITAMINS W/ FOLIC ACID TABLET (FP) PO SCH (10:25)
--- NOTE | 2019-08-29 12:20 | PN ---
S CIWA - CIWA Score Nausea/Vomitin-No Nausea/No Vomiting Muscle Tremors: 2 Anxiety: 2 Agitation: 1-Slight > Activity Paroxysmal Sweats: No Perspiration Orientation: 0-Oriented Tacttile Disturbances: 0-None Auditory Disturbances: 0-None Visual Disturbances: 0-None Headache: 0-None Present CIWA-Ar Total Score: 5 BHS Progress Note (SOAP) Subjective: 53 years old female admitted on 08/27/19 for alcohol withdrawal sx management treated wtih librium detox regimen feeling better less tremor mild anxiety Objective: 08/29/19 12:19 Vital Signs Temperature 97.7 F 08/29/19 09:40 Pulse Rate 80 08/29/19 09:40 Respiratory Rate 18 08/29/19 09:40 Blood Pressure 116/79 08/29/19 09:40 O2 Sat by Pulse Oximetry (%) Laboratory Last Values WBC 7.1 K/mm3 (4.0-10.0) 08/27/19 11:00 RBC 4.94 M/mm3 (3.60-5.2) 08/27/19 11:00 Hgb 15.7 GM/dL (10.7-15.3) H 08/27/19 11:00 Hct 44.6 % (32.4-45.2) 08/27/19 11:00 MCV 90.1 fl (80-96) 08/27/19 11:00 MCH 31.9 pg (25.7-33.7) 08/27/19 11:00 MCHC 35.3 g/dl (32.0-36.0) 08/27/19 11:00 RDW 14.1 % (11.6-15.6) 08/27/19 11:00 Plt Count 321 K/MM3 (134-434) 08/27/19 11:00 MPV 8.2 fl (7.5-11.1) 08/27/19 11:00 Sodium 138 mmol/L (136-145) 08/27/19 11:00 Potassium 4.0 mmol/L (3.5-5.1) 08/27/19 11:00 Chloride 106 mmol/L (98-107) 08/27/19 11:00 Carbon Dioxide 26 mmol/L (21-32) 08/27/19 11:00 Anion Gap 7 MMOL/L (8-16) L 08/27/19 11:00 BUN 8.4 mg/dL (7-18) 08/27/19 11:00 Creatinine 0.8 mg/dL (0.55-1.3) 08/27/19 11:00 Est GFR (CKD-EPI)AfAm 96.87 08/27/19 11:00 Est GFR (CKD-EPI)NonAf 83.58 08/27/19 11:00 POC Glucometer 111 UNITS (80-120) 08/29/19 06:01 Random Glucose 109 mg/dL (74-106) H 08/27/19 11:00 Calcium 9.6 mg/dL (8.5-10.1) 08/27/19 11:00 Total Bilirubin 0.8 mg/dL (0.2-1) 08/27/19 11:00 AST 15 U/L (15-37) 08/27/19 11:00 ALT 31 U/L (13-61) 08/27/19 11:00 Alkaline Phosphatase 116 U/L (45-117) 08/27/19 11:00 Total Protein 7.2 g/dl (6.4-8.2) 08/27/19 11:00 Albumin 3.8 g/dl (3.4-5.0) 08/27/19 11:00 lab noted Assessment: 08/29/19 12:19 alcohol withdrawal sx Plan: continue librium detox regimen
[2019-08-29] MEDS: MELATONIN 5 MG TABLETS PO PRN (22:50)
[2019-08-29] MEDS: THIAMINE HCL 100 MG TABLET (FP) PO SCH (22:50)
[2019-08-29] MEDS: MAG HYDROX/AL HYDROX/SIMETH 30 ML UNIT-DOSE CUP PO PRN (22:52)
[2019-08-30] MEDS ORDERED: chlordiazePOXIDE HCL 10 MG CAPSULE PO ONE (05:00)
[2019-08-30] MEDS: metFORMIN HCL 500 MG TABLET (FP) PO SCH (06:39)
[2019-08-30 08:28] VITALS: BP 123/84; PULSE 76; TEMP 97
== END 2019-08-30 06:40 | disposition home or self-care (01) | DRG 774 ==
LOC: YASAS 09:06 → Y3N 11:17
PROVIDERS: ADMIT Allergy & Immunology; ATTEND Allergy & Immunology
PROC: HZ2ZZZZ Detoxification Services for Substance Abuse Treatment (ICD-10-PCS; principal; 2019-08-27)
DX: F10.230 Alcohol dependence with withdrawal, uncomplicated (principal); F14.20 Cocaine dependence, uncomplicated; F12.20 Cannabis dependence, uncomplicated; F17.210 Nicotine dependence, cigarettes, uncomplicated; F41.9 Anxiety disorder, unspecified; F31.9 Bipolar disorder, unspecified; G47.00 Insomnia, unspecified; I10 Essential (primary) hypertension; K21.9 Gastro-esophageal reflux disease without esophagitis; E11.9 Type 2 diabetes mellitus without complications; Z79.84 Long term (current) use of oral hypoglycemic drugs; Z91.19 Patient's noncompliance with other medical treatment and regimen
CPT/HCPCS: 36415; 80053; 82962; 85027

== ENCOUNTER 2020-03-25 10:29 | Inpatient (IN) | payer OTHER ==
--- NOTE | 2020-03-25 13:05 | BHS.RME ---
Substance Use & Tx History - Substance Use History Alcohol Substance amount: 2pints of vodka/9 of 12ozs of beer Frequency of use: Daily Substance route: Oral Date of Last Use: 03/25/20 Cocaine-Crack Substance amount: 200$ of crack Frequency of use: Daily Date of Last Use: 03/24/20 Marijuana/Hashish Substance amount: 20$ Frequency of use: Daily Substance route: Smoking Date of Last Use: 03/25/20 - Last Treatment Date of last treatment: to 08/30/19 Where was last treatment: Detox Physical/Psych/Mental Status - Behavior General Behavior: Increased activity (restlessness, agitation) Eye Contact: Normal - Cooperativeness Cooperativeness: Cooperative - Thinking Thought Processes: Logical Thought content: Future oriented - Physical Health Problems Is patient presently having any pain?: No Does patient presently have any injuries (include location): No Does patient currently have a fever: No Is patient : No CIWA Nausea/Vomitin Muscle Tremors: 3 Anxiety: 3 Agitation: 2 Paroxysmal Sweats: 1-Minimal Palms Moist Orientation: 0-Oriented Tacttile Disturbances: 1-Very Mild Itch/Numbness Auditory Disturbances: 0-None Visual Disturbances: 0-None Headache: 2-Mild CIWA-Ar Total Score: 14
--- NOTE | 2020-03-25 13:15 | HP ---
CIWA Score Nausea/Vomitin Muscle Tremors: 3 Anxiety: 3 Agitation: 2 Paroxysmal Sweats: 1-Minimal Palms Moist Orientation: 0-Oriented Tacttile Disturbances: 1-Very Mild Itch/Numbness Auditory Disturbances: 0-None Visual Disturbances: 0-None Headache: 2-Mild CIWA-Ar Total Score: 14 - Admission Criteria OASAS Guidelines: Admission for Medically Managed Detox: Requires at least one of the followin. CIWA greater than 12 2. Seizures within the past 24 hours 3. Delirium tremens within the past 24 hours 4. Hallucinations within the past 24 hours 5. Acute intervention needed for co occurring medical disorder 6. Acute intervention needed for co occurring psychiatric disorder 7. Severe withdrawal that cannot be handled at a lower level of care (continued vomiting, continued diarrhea, abnormal vital signs) requiring intravenous medication and/or fluids 8. Admitting History and Physical - Admission Chief Complaint: i am here to stop drinking alcoho,marijuana and cocaine History of Present Illness: this 54 years old female with alcohol dependence ,cocaine and marijuana dependence seeking detox,withdrawal symptom, multiple admissions in detox History Source: Patient Limitations to Obtaining History: No Limitations - Past Medical History Cardiovascular: Yes: HTN ...LMP: 11/17/17 ...: No Psych: Yes: Bipolar - Past Surgical History Additional Past Surgical History: pilonidal cyst at age 21 - Smoking History Smoking history: Current every day smoker Have you smoked in the past 12 months: Yes Aproximately how many cigarettes per day: 7 - Alcohol/Substance Use Hx Alcohol Use: Yes History of Substance Use: reports: Cocaine, Marijuana Date of Last Use: 03/25/20 - Social History Usual Living Arrangement: Yes: With Significant Other Do you think of yourself as: Straight/Heterosexual ADL: Support Services Occupation: unemployed History of Recent Travel: No Other Social History: unemployed,no legal issue Admission ROS [facility]HS - HPI Chief Complaint: i need help to stop drinking alcohol,ccoaine and marijuana Allergies/Adverse Reactions: Allergies Allergy/AdvReac Type Severity Reaction Status Date / Time No Known Allergies Allergy Verified 03/25/20 13:53 History of Present Illness: this 54 years old female with alcohol,cocaine and marijuana dependence seeking detox,multiple admissions in detox,last [facility] 08/27/19 to 08/30/19 denied seizure denied syncope bipolar disorder asthma type 2 dm nicotine dependence longest sobriety 2 to 3 years 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,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, Exam Limitations: No Limitations - Ebola screening Have you traveled outside of the country in the last 21 days: No Have you had contact with anyone from an Ebola affected area: No Have you been sick,other than usual withdrawal symptoms: No Do you have a fever: No - Review of Systems Constitutional: Loss of Appetite, Malaise, Night Sweats, Changes in sleep EENT: reports: Nose Congestion Respiratory: reports: No Symptoms reported Cardiac: reports: No Symptoms Reported GI: reports: Nausea, Poor Appetite, Abdominal cramping : reports: No Symptoms Reported Musculoskeletal: reports: Back Pain, Muscle Pain Integumentary: reports: Dryness Neuro: reports: Headache, Tremors Endocrine: reports: No Symptoms Reported Hematology: reports: No Symptoms Reported Psychiatric: reports: No Sypmtoms Reported, Judgement Intact, Mood/Affect Appropiate, Orientated x3 Other Systems: Reviewed and Negative Patient History - Patient Medical History Hx Anemia: No Hx Asthma: No Hx Chronic Obstructive Pulmonary Disease (COPD): No Hx Cancer: No Hx Cardiac Disorders: No Hx Congestive Heart Failure: No Hx Hypertension: Yes (NON-COMPLIANT WITH MEDICATION) Hx Hypercholesterolemia: No Hx Pacemaker: No HX Cerebrovascular Accident: No Hx Seizures: No Hx Dementia: No Hx Diabetes: Yes (ON metformin 500 mgs po bid) Hx Gastrointestinal Disorders: Yes Hx Liver Disease: No Hx Genitourinary Disorders: No Hx Sexually Transmitted Disorders: No Hx Renal Disease (ESRD): No Hx Thyroid Disease: No Hx Human Immunodeficiency Virus (HIV): No (last 09/22 negative) Hx Hepatitis C: No Hx Depression: No (Bipolar) Hx Suicide Attempt: No Hx Bipolar Disorder: Yes (abilify use not complaint ) Hx Schizophrenia: No Other Medical History: no suicidal,no homicidal - Patient Surgical History Past Surgical History: Yes Hx Neurologic Surgery: No Hx Cataract Extraction: No Hx Cardiac Surgery: No Hx Lung Surgery: No Hx Breast Surgery: No Hx Breast Biopsy: No Hx Abdominal Surgery: No Hx Appendectomy: No Hx Cholecystectomy: No Hx Genitourinary Surgery: No Hx Section: No Hx Orthopedic Surgery: No Hx Hysterectomy: No Other Surgical History: SX FOR PILONIDAL CYST IN 1986 Anesthesia Reaction: No - PPD History Previous Implant?: Yes Documented Results: Positive w/o proof Implanted On Prior R Admission?: No PPD to be Administered?: No - Reproductive History Patient is a Female of Child Bearing Age (11 -55 yrs old): Yes Last Menstrual Period: 11/17/17 Patient : No - Smoking Cessation Smoking history: Current every day smoker Have you smoked in the past 12 months: Yes Aproximately how many cigarettes per day: 7 Hx Chewing Tobacco Use: No Initiated information on smoking cessation: Yes 'Breaking Loose' booklet given: 03/25/20 - Substance & Tx. History Hx Alcohol Use: Yes Hx Substance Use: Yes Substance Use Type: Alcohol, Cocaine, Marijuana Hx Substance Use Treatment: Yes ([facility] 08/27/19 to 08/30/19) - Substances abused Alcohol Substance route: Oral Frequency: Daily Amount used: 2pints of vodka/9 of 12 ozs of beer Age of first use: 15 Date of last use: 03/25/20 Crack Substance route: Smoking Frequency: Daily Amount used: 200$ Age of first use: 21 Date of last use: 03/24/20 Marijuana/Hashish Substance route: Smoking Frequency: Daily Amount used: 20$ Age of first use: 15 Date of last use: 03/25/20 Admission Physical Exam BHS - Vital Signs Vital Signs: Vital Signs Temperature 98.2 F 03/25/20 18:00 Pulse Rate 102 H 03/25/20 18:00 Respiratory Rate 17 03/25/20 18:00 Blood Pressure 141/89 03/25/20 18:00 O2 Sat by Pulse Oximetry (%) 97 03/25/20 14:55 - Physical General Appearance: Yes: Moderate Distress, Tremorous, Irritable, Anxious HEENTM: Yes: Normal ENT Inspection, JAY, Pharynx Normal Respiratory: Yes: Lungs Clear, Normal Breath Sounds, No Respiratory Distress Neck: Yes: Within Normal Limits, Supple, Trachea in good position Breast: Yes: Breast Exam Deferred Cardiology: Yes: Within Normal Limits, Regular Rhythm, Regular Rate, S1, S2 Abdominal: Yes: Within Normal Limits, Normal Bowel Sounds, Non Tender, Flat, Soft Genitourinary: Yes: Within Normal Limits Back: Yes: Within Normal Limits Musculoskeletal: Yes: Back pain, Muscle Pain Extremities: Yes: Tremors 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 NML intact, Fully Oriented, Alert, Motor Strength 5/5 Integumentary: Yes: Dry Lymphatic: Yes: Within Normal Limits - Diagnostic (1) Alcohol dependence with uncomplicated withdrawal Current Visit: No Status: Acute (2) Cannabis dependence Current Visit: No Status: Chronic (3) Cocaine dependence Current Visit: No Status: Chronic (4) DM type 2 (diabetes mellitus, type 2) Current Visit: No Status: Chronic Qualifiers: Diabetes mellitus terminal supervisor insulin use: with penitentiary use Diabetes mellitus complication status: without complication Qualified Code(s): E11.9 - Type 2 diabetes mellitus without complications; Z79.4 - extermination supervisor (current) use of insulin (5) History of bipolar disorder Current Visit: No Status: Chronic (6) Hypertension Current Visit: No Status: Chronic Qualifiers: Hypertension type: essential hypertension Qualified Code(s): I10 - Essential (primary) hypertension (7) Nicotine dependence Current Visit: Yes Status: Acute Cleared for Admission BHS - Detox or Rehab S Level of Care: Medically Managed Detox Regimen/Protocol: Librium Breathalyzer - Breathalyzer Breathalyzer: 0 POC Urine test - Test device test lot number: [id number] Expiration date: 06/05/20 - Control test control: Yes Urine Drug Screen - Test Device Lot number: [id number] Expiration date: 05/05/21 - Control Is test valid?: Yes - Results Drug screen NEGATIVE: No Urine drug screen results: THC-Marijuana, DILEEP-Cocaine Inpatient Rehab Admission - Rehab Decision to Admit Inpatient rehab admission?: No
[2020-03-25] MEDS ORDERED: ONDANSETRON *ODT* 4 MG TABLET SL ONE (13:31)
[2020-03-25] MEDS ORDERED: MAGNESIUM HYDROX 2400MG/30ML ORAL SUSPENSION 30 ML CUP PO PRN (13:31)
[2020-03-25] MEDS ORDERED: MENTHOL/PHENOL 1 EACH UD MM PRN (13:31)
[2020-03-25] MEDS ORDERED: ACETAMINOPHEN 325 MG TABLET (FP) PO PRN ×2 (13:31)
[2020-03-25] MEDS ORDERED: METHOCARBAMOL 500 MG TABLET PO PRN (13:31)
[2020-03-25] MEDS ORDERED: IBUPROFEN 400 MG TABLET (FP) PO PRN (13:31)
[2020-03-25] MEDS ORDERED: chlordiazePOXIDE HCL 25 MG CAPSULE PO PRN (13:31)
[2020-03-25] MEDS ORDERED: MAG HYDROX/AL HYDROX/SIMETH 30 ML UNIT-DOSE CUP PO PRN (13:31)
[2020-03-25] MEDS ORDERED: MAGNESIUM CITRATE 300 ML BOTTLE PO PRN (13:31)
[2020-03-25] MEDS ORDERED: BISMUTH SUBSALICYLATE 524 MG/30 ML UD PO PRN (13:31)
[2020-03-25] MEDS ORDERED: NICOTINE POLACRILEX 2 MG GUM BUC PRN (13:31)
[2020-03-25 13:53] VITALS: BMI 27.0
[2020-03-25] MEDS: hydrOXYzine PAMOATE 25 MG CAPSULE (FP) PO SCH ×3 (14:40→21:27)
[2020-03-25] MEDS: chlordiazePOXIDE HCL 25 MG CAPSULE PO SCH ×2 (18:02→22:01)
[2020-03-25] MEDS ORDERED: LISINOPRIL 10 MG TABLET (FP) PO ONE (19:21)
[2020-03-25] MEDS: THIAMINE HCL 100 MG TABLET (FP) PO SCH (21:27)
[2020-03-25] MEDS: MELATONIN 5 MG TABLETS PO SCH (21:27)
[2020-03-25 23:12] LABS: EPI CELLS 14 /uL (0-25.1); HYALINE CASTS 0 /uL (0-3.1); PH,URINE 5.5 (5.0-8.0); URINE APPEARANCE CLEAR; URINE BACTERIA 500 /uL (0-1359); URINE BILIRUBIN NEGATIVE (NEGATIVE); URINE COLOR YELLOW; URINE GLUCOSE (UA) NEGATIVE (NEGATIVE); URINE KETONE NEGATIVE (NEGATIVE); URINE LEUK ESTERASE TRACE (NEGATIVE); URINE NITRITE NEGATIVE (NEGATIVE); URINE PROTEIN NEGATIVE (NEGATIVE); URINE RBC 8 /uL (0-23.9); URINE UROBILINOGEN 0.2 mg/dL (0.2-1.0); URINE WBC 5 /uL (0-25.8)
[2020-03-26] MEDS: hydrOXYzine PAMOATE 25 MG CAPSULE (FP) PO SCH ×5 (06:24→23:03)
[2020-03-26] MEDS: metFORMIN HCL 500 MG TABLET (FP) PO SCH (06:24)
[2020-03-26] MEDS: chlordiazePOXIDE HCL 25 MG CAPSULE PO SCH ×4 (06:24→23:03)
[2020-03-26 10:03] LABS: HEMATOCRIT 44.5 % (32.4-45.2); HEMOGLOBIN 15.5 GM/dL (10.7-15.3); MCH 32.8 pg (25.7-33.7); MEAN CELL VOLUME 93.8 fl (80-96); MEAN PLT VOLUME 8.3 fl (7.5-11.1); PLATELET COUNT 297 K/MM3 (134-434); RBC 4.74 M/mm3 (3.60-5.2); RDW 13.7 % (11.6-15.6); WHITE BLOOD COUNT 4.1 K/mm3 (4.0-10.0)
[2020-03-26 10:10] LABS: POTASSIUM 4.6 mmol/L (3.5-5.1)
[2020-03-26 10:11] LABS: ALBUMIN 0.1 g/dl (3.4-5.0); BILIRUBIN,TOTAL 0.5 mg/dL (0.2-1); CREATININE 0.6 mg/dL (0.55-1.3); TOT PROT 7.2 g/dl (6.4-8.2)
[2020-03-26] MEDS: PRENATAL VITAMINS W/ FOLIC ACID TABLET (FP) PO SCH (10:45)
[2020-03-26] MEDS: LISINOPRIL 10 MG TABLET (FP) PO SCH (10:46)
[2020-03-26] MEDS: NICOTINE 7 MG/24 HOURS TOPICAL PATCH TD SCH (10:47)
--- NOTE | 2020-03-26 11:05 | PN ---
S CIWA - CIWA Score Nausea/Vomitin-Mild Nausea/No Vomiting Muscle Tremors: 3 Anxiety: 4-Mod. Anxious/Guarded Agitation: 2 Paroxysmal Sweats: No Perspiration Orientation: 0-Oriented Tacttile Disturbances: 0-None Auditory Disturbances: 0-None Visual Disturbances: 2-Mild Sensitivity Headache: 0-None Present CIWA-Ar Total Score: 12 BHS Progress Note (SOAP) Subjective: Complaints of sweats, shakes and light sensitivity. Objective: 03/26/20 11:03 Vital Signs 03/26/20 03/26/20 03/26/20 06:00 06:38 06:39 Temperature 97.3 F L Pulse Rate 74 Respiratory 18 Rate Blood Pressure 152/101 H 145/84 O2 Sat by Pulse 96 Oximetry (%) 03/26/20 03/26/20 06:59 08:20 Temperature 96.6 F L Pulse Rate 84 Respiratory 18 Rate Blood Pressure 117/76 131/77 O2 Sat by Pulse Oximetry (%) Laboratory Last Values WBC 4.1 K/mm3 (4.0-10.0) 03/26/20 07:10 RBC 4.74 M/mm3 (3.60-5.2) 03/26/20 07:10 Hgb 15.5 GM/dL (10.7-15.3) H 03/26/20 07:10 Hct 44.5 % (32.4-45.2) 03/26/20 07:10 MCV 93.8 fl (80-96) 03/26/20 07:10 MCH 32.8 pg (25.7-33.7) 03/26/20 07:10 MCHC 35.0 g/dl (32.0-36.0) 03/26/20 07:10 RDW 13.7 % (11.6-15.6) 03/26/20 07:10 Plt Count 297 K/MM3 (134-434) 03/26/20 07:10 MPV 8.3 fl (7.5-11.1) 03/26/20 07:10 Sodium 139 mmol/L (136-145) 03/26/20 07:10 Potassium 4.6 mmol/L (3.5-5.1) 03/26/20 07:10 Chloride 106 mmol/L (98-107) 03/26/20 07:10 Carbon Dioxide 14 mmol/L (21-32) L 03/26/20 07:10 Anion Gap 19 MMOL/L (8-16) H 03/26/20 07:10 BUN 11.0 mg/dL (7-18) 03/26/20 07:10 Creatinine 0.6 mg/dL (0.55-1.3) 03/26/20 07:10 Est GFR (CKD-EPI)AfAm 118.93 03/26/20 07:10 Est GFR (CKD-EPI)NonAf 102.61 03/26/20 07:10 POC Glucometer 116 UNITS (80-120) 03/26/20 06:25 Random Glucose 69 mg/dL (74-106) L 03/26/20 07:10 Calcium 10.0 mg/dL (8.5-10.1) 03/26/20 07:10 Total Bilirubin 0.5 mg/dL (0.2-1) 03/26/20 07:10 AST 20 U/L (15-37) 03/26/20 07:10 ALT 28 U/L (13-61) 03/26/20 07:10 Alkaline Phosphatase 111 U/L (45-117) 03/26/20 07:10 Total Protein 7.2 g/dl (6.4-8.2) 03/26/20 07:10 Albumin 0.1 g/dl (3.4-5.0) L 03/26/20 07:10 Urine Color Yellow 03/25/20 16:20 Urine Appearance Clear 03/25/20 16:20 Urine pH 5.5 (5.0-8.0) 03/25/20 16:20 Ur Specific [place] 1.010 (1.010-1.035) 03/25/20 16:20 Urine Protein Negative (NEGATIVE) 03/25/20 16:20 Urine Glucose (UA) Negative (NEGATIVE) 03/25/20 16:20 Urine Ketones Negative (NEGATIVE) 03/25/20 16:20 Urine Blood Negative (NEGATIVE) 03/25/20 16:20 Urine Nitrite Negative (NEGATIVE) 03/25/20 16:20 Urine Bilirubin Negative (NEGATIVE) 03/25/20 16:20 Urine Urobilinogen 0.2 mg/dL (0.2-1.0) 03/25/20 16:20 Ur Leukocyte Esterase Trace (NEGATIVE) 03/25/20 16:20 Urine WBC (Auto) 5 /uL (0-25.8) 03/25/20 16:20 Urine RBC (Auto) 8 /uL (0-23.9) 03/25/20 16:20 Urine Casts (Auto) 0 /uL (0-3.1) 03/25/20 16:20 U Epithel Cells (Auto) 14 /uL (0-25.1) 03/25/20 16:20 Urine Bacteria (Auto) 500 /uL (0-1359) 03/25/20 16:20 Syphilis Serology Non-reactive (NONREACTIVE) 03/26/20 07:10 Labs reviewed. Assessment: 03/26/20 11:04 Alert and oriented x 3, in no acute respiratory distress. Full ROM, ambulating in the unit with no assistance. Mild withdrawal symptoms. Plan: Continue detox protocol. Covid 19 pending.
--- NOTE | 2020-03-26 12:05 | CONSULT ---
[facility] Psychiatric Consult - Data Date of interview: 03/26/20 Admission source: [facility] Identifying data: Patient is a 54 year old single female, mother of one, unemployed, domiciled, and is financially supported by her partner. This is one of multiple admissions for patient. Patient admitted to for alcohol and marijuana dependence. Substance Abuse History: Smoking Cessation. Smoking history: Current every day smoker. Have you smoked in the past 12 months: Yes. Aproximately how many cigarettes per day: 7. Hx Chewing Tobacco Use: No. Initiated information on smoking cessation: Yes. 'Breaking Loose' booklet given: 03/25/20. - Substance & Tx. History. Hx Alcohol Use: Yes. Hx Substance Use: Yes. Substance Use Type: Alcohol, Cocaine, Marijuana. Hx Substance Use Treatment: Yes ([facility] 08/27/19 to 08/30/19). - Substances abused. Alcohol. Substance route: Oral. Frequency: Daily. Amount used: 2pints of vodka/9 of 12 ozs of beer. Age of first use: 15. Date of last use: 03/25/20. Crack. Substance route: Sm oking. Frequency: Daily. Amount used: 200$. Age of first use: 21. Date of last use: 03/24/20. Marijuana/Hashish. Substance route: Smoking. Frequency: Daily. Amount used: 20$. Age of first use: 15. Date of last use: 03/25/20 Medical History: GERD, diabetes mellitus, hypertension, varicose veins, uterine fibroids, history of surgical excision of a pilonidal cyst and positive PPD. Psychiatric History: Ms. Peterson reports history of multiple psychiatric hospitalizations ([facility]), most recently twenty years ago. Diagnosed with Bipolar Disorder. Ms Peterson states that she is not seeing a psychiatric provider and is not taking medication. Patient also informed commercial lines underwriter that she is not interested in accepting psychotropic medication. Patient denies history of suicide attempt. Physical/Sexual Abuse/Trauma History: Patient declines to discuss. Mental Status Exam - Mental Status Exam Alert and Oriented to: Time, Place, Person Cognitive Function: Good Patient Appearance: Well Groomed Mood: Withdrawn Affect: Mood Congruent Patient Behavior: Fatigued Speech Pattern: Appropriate Voice Loudness: Mildly Soft/Quiet Thought Process: Goal Oriented Thought Disorder: Not Present Hallucinations: Denies Suicidal Ideation: Denies Homicidal Ideation: Denies Insight/Judgement: Poor Sleep: Fair Appetite: Fair Muscle strength/Tone: Normal Gait/Station: Other (Gait not observed.) Psychiatric Findings - Problem List (Christine 1, 2,3) (1) Alcohol dependence with uncomplicated withdrawal Current Visit: Yes Status: Acute (2) Cannabis dependence Current Visit: Yes Status: Chronic (3) Cocaine dependence Current Visit: Yes Status: Chronic (4) Bipolar disorder Current Visit: No Status: Chronic Qualifiers: Active/Remission status: currently active Current episode severity: unspecified - Initial Treatment Plan Initial Treatment Plan: Psychoeducation provided. Detoxification in progress. Observation.
[2020-03-26] MEDS: THIAMINE HCL 100 MG TABLET (FP) PO SCH (23:03)
[2020-03-26] MEDS: MELATONIN 5 MG TABLETS PO SCH (23:03)
[2020-03-27] MEDS: hydrOXYzine PAMOATE 25 MG CAPSULE (FP) PO SCH ×5 (06:14→22:17)
[2020-03-27] MEDS: metFORMIN HCL 500 MG TABLET (FP) PO SCH (06:14)
[2020-03-27] MEDS: chlordiazePOXIDE HCL 25 MG CAPSULE PO SCH ×4 (06:15→22:17)
[2020-03-27] MEDS: LISINOPRIL 10 MG TABLET (FP) PO SCH (10:29)
[2020-03-27] MEDS: PRENATAL VITAMINS W/ FOLIC ACID TABLET (FP) PO SCH (10:29)
[2020-03-27] MEDS: NICOTINE 7 MG/24 HOURS TOPICAL PATCH TD SCH (10:30)
[2020-03-27] MEDS ORDERED: LISINOPRIL 10 MG TABLET (FP) PO ONE (11:02)
--- NOTE | 2020-03-27 11:09 | PN ---
BHS Progress Note (SOAP) Subjective: c/o anxiety, irritability. Requests to see psych today for medications re- evaluation. Pt became very angry stating that her Lisinopril was changed to 10 mg instead of 20 mg and wants to leave treatment. This resume writer explained to patient will review her home meds and adjust accordingly but pt remained unreceptive and threatened to leave because "you people have no right to override my doctor's orders, that's what i take". However, this resume writer called pt's home pharmacy [phone] [place], [place], and pharmacist verified pt is taking Lisinopril 20 mg po daily last filled on 01/28/20 for 3 months with #90 tablets and Metformin 500 mg po BID last filled on 01/28/20 for 3 months with #180 tablets. Pharmacist reports next RX due in April,. Prescriber's information as Dr. Leanne Shetty @ [address] [place] [address]. . Objective: 03/27/20 11:04 Vital Signs - 24 hr 03/26/20 03/26/20 03/26/20 12:27 17:20 20:20 Temperature 96.2 F L 97.3 F L 97.3 F L Pulse Rate 90 93 H 77 Respiratory 18 17 18 Rate Blood Pressure 127/79 124/76 134/76 O2 Sat by Pulse 96 Oximetry (%) 03/26/20 03/27/20 03/27/20 21:56 00:30 05:00 Temperature Pulse Rate Respiratory 18 Rate Blood Pressure O2 Sat by Pulse 97 97 Oximetry (%) 03/27/20 03/27/20 06:28 08:42 Temperature 96.4 F L 97.5 F L Pulse Rate 74 96 H Respiratory 18 18 Rate Blood Pressure 133/94 146/87 O2 Sat by Pulse Oximetry (%) Laboratory Tests 03/25/20 03/26/20 03/26/20 16:20 06:25 07:10 WBC RBC Hgb Hct MCV MCH MCHC RDW Plt Count MPV Sodium Potassium Chloride Carbon Dioxide Anion Gap BUN Creatinine Est GFR (CKD-EPI)AfAm Est GFR (CKD-EPI)NonAf POC Glucometer 116 Random Glucose Calcium Total Bilirubin AST ALT Alkaline Phosphatase Total Protein Albumin Urine Color Yellow Urine Appearance Clear Urine pH 5.5 Ur Specific [place] 1.010 Urine Protein Negative Urine Glucose (UA) Negative Urine Ketones Negative Urine Blood Negative Urine Nitrite Negative Urine Bilirubin Negative Urine Urobilinogen 0.2 Ur Leukocyte Esterase Trace Urine WBC (Auto) 5 Urine RBC (Auto) 8 Urine Casts (Auto) 0 U Epithel Cells (Auto) 14 Urine Bacteria (Auto) 500 Syphilis Serology Non-reactive HIV Ag/Ab Combo Qual 03/26/20 03/26/20 03/26/20 07:10 07:10 07:10 WBC 4.1 RBC 4.74 Hgb 15.5 H Hct 44.5 MCV 93.8 MCH 32.8 MCHC 35.0 RDW 13.7 Plt Count 297 MPV 8.3 Sodium 139 Potassium 4.6 Chloride 106 Carbon Dioxide 14 L Anion Gap 19 H BUN 11.0 Creatinine 0.6 Est GFR (CKD-EPI)AfAm 118.93 Est GFR (CKD-EPI)NonAf 102.61 POC Glucometer Random Glucose 69 L Calcium 10.0 Total Bilirubin 0.5 AST 20 ALT 28 Alkaline Phosphatase 111 Total Protein 7.2 Albumin 0.1 L Urine Color Urine Appearance Urine pH Ur Specific [place] Urine Protein Urine Glucose (UA) Urine Ketones Urine Blood Urine Nitrite Urine Bilirubin Urine Urobilinogen Ur Leukocyte Esterase Urine WBC (Auto) Urine RBC (Auto) Urine Casts (Auto) U Epithel Cells (Auto) Urine Bacteria (Auto) Syphilis Serology HIV Ag/Ab Combo Qual Negative 03/27/20 06:13 WBC RBC Hgb Hct MCV MCH MCHC RDW Plt Count MPV Sodium Potassium Chloride Carbon Dioxide Anion Gap BUN Creatinine Est GFR (CKD-EPI)AfAm Est GFR (CKD-EPI)NonAf POC Glucometer 120 Random Glucose Calcium Total Bilirubin AST ALT Alkaline Phosphatase Total Protein Albumin Urine Color Urine Appearance Urine pH Ur Specific [place] Urine Protein Urine Glucose (UA) Urine Ketones Urine Blood Urine Nitrite Urine Bilirubin Urine Urobilinogen Ur Leukocyte Esterase Urine WBC (Auto) Urine RBC (Auto) Urine Casts (Auto) U Epithel Cells (Auto) Urine Bacteria (Auto) Syphilis Serology HIV Ag/Ab Combo Qual Covid-19 result pending. UA-Leuk sav Trace; Bacteria 500 Assessment: 03/27/20 11:04 withdrawal sx Plan: cont detox increase po fluids f/u with Covid-19 result Restart Lisinopril 20 mg po daily Add Lisinopril 10 mg po now pt to f/u with psych today. UC today
--- NOTE | 2020-03-27 13:49 | PN ---
Psychiatric Progress Note Vital Signs: Vital Signs Period Temp Pulse Resp BP Sys/Lr Pulse Ox Last 24 Hr 96.4 F-97.5 F 74-96 17-18 124-146/76-94 97-97 Date of Session: 03/27/20 Chief Complaint:: " I want to restart medications." HPI: Patient admitted to for alcohol and marijuana dependence. Consultation ordered for evaluation of medications. ROS: Patient is ambulatory, alert +oriented X3. Current Medications: Active Medications Generic Name Dose Route Start Last Admin Trade Name Freq PRN Reason Stop Dose Admin Acetaminophen 650 mg 03/25/20 13:31 Tylenol - PO Q6H PRN PAIN LEVEL 4 - 6 Acetaminophen 650 mg 03/25/20 13:31 Tylenol - PO Q6H PRN FEVER Al Hydroxide/Mg Hydroxide 30 ml 03/25/20 13:31 Mylanta Oral Suspension - PO Q6H PRN DYSPEPSIA Bismuth Subsalicylate 524 mg 03/25/20 13:31 Pepto-Bismol - PO Q1H PRN DIARRHEA Chlordiazepoxide HCl 25 mg 03/27/20 05:00 03/27/20 10:29 Librium - PO 03/27/20 23:01 25 mg [id number] JUNIOR Administration Chlordiazepoxide HCl 25 mg 03/25/20 13:31 03/25/20 14:40 Librium - PO 03/27/20 23:59 25 mg Q4H PRN Administration WITHDRAWAL(CONT SUBST) Chlordiazepoxide HCl 10 mg 03/28/20 05:00 Librium - PO 03/28/20 23:01 [id number] JUNIOR Chlordiazepoxide HCl 10 mg 03/29/20 05:00 Librium - PO 03/29/20 17:01 Q12H JUNIOR Chlordiazepoxide HCl 10 mg 03/28/20 00:00 Librium - PO 03/29/20 00:00 Q4H PRN WITHDRAWAL(CONT SUBST) Chlordiazepoxide HCl 10 mg 03/30/20 05:00 Librium - PO 03/30/20 05:01 ONCE@0500 ONE Eucalyptus/Menthol/Phenol/Sorbitol 1 each 03/25/20 13:31 Cepastat Lozenge - MM 03/31/20 13:31 Q4H PRN SORE THROAT Hydroxyzine Pamoate 25 mg 03/25/20 14:00 03/27/20 13:18 Vistaril - PO 03/31/20 13:31 Not Given Q4HWA JUNIOR Ibuprofen 400 mg 03/25/20 13:31 Motrin - PO Q6H PRN PAIN LEVEL 1 - 3 Lisinopril 10 mg 03/26/20 10:00 03/27/20 10:29 Prinivil PO 10 mg DAILY JUNIOR Administration Magnesium Citrate 300 ml 03/25/20 13:31 Citroma - PO Q48H PRN CONSTIPATION Magnesium Hydroxide 30 ml 03/25/20 13:31 Milk Of Magnesia - PO PRN PRN CONSTIPATION Melatonin 5 mg 03/25/20 22:00 03/26/20 23:03 Melatonin PO Not Given HS JUNIOR Metformin HCl 500 mg 03/26/20 07:00 03/27/20 06:14 Glucophage - PO 500 mg DAILY@0700 JUNIOR Administration Methocarbamol 500 mg 03/25/20 13:31 03/25/20 14:40 Robaxin - PO 03/31/20 13:31 500 mg Q6H PRN Administration MUSCLE SPASMS Nicotine 7 mg 03/26/20 10:00 03/27/20 10:30 Nicoderm Patch - TD Not Given DAILY JUNIOR Nicotine Polacrilex 2 mg 03/25/20 13:31 Nicorette Gum - BUC Q2H PRN NICOTINE REPLACEMENT RX Multivit/Folic Acid/Iron 1 tab 03/26/20 10:00 03/27/20 10:29 Vitamins (Sjr) - PO 1 tab DAILY JUNIOR Administration Thiamine HCl 100 mg 03/25/20 22:00 03/26/20 23:03 Vitamin B1 - PO Not Given HS [facility] Medication(s) Change(s): Yes. Will add Abilify 5mg + Trazodone 50mg HS. Current Side Effect: No Lab tests ordered: No Lab tests reviewed: Yes Provider note:: Patient with a history of bipolar disorder and is currently not provided with outpatient psychiatric care. Ms. Peterson has not had psychiatric care for several years. She reports history of being prescribed risperdal, tra zodone, abilify, and seroquel. Patient has been treated with abilify , risperdal and trazodone during previous admissions. Patient states that her mood is stable but she has moments of irritability and is having difficulty sleeping. Will iniate treatment with abilify 5mg HS + Trazodone 50mg HS. Benefits and side effects discussed. Verbal consent given. Total face to face time:: 25 Mental Status Exam - Mental Status Exam Alert and Oriented to: Time, Place, Person Cognitive Function: Good Patient Appearance: Well Groomed Mood: Hopeful Affect: Appropriate Patient Behavior: Appropriate, Cooperative Speech Pattern: Appropriate Voice Loudness: Normal Thought Process: Intact, Goal Oriented Thought Disorder: Not Present Hallucinations: Denies Suicidal Ideation: Denies Homicidal Ideation: Denies Insight/Judgement: Poor Sleep: Poorly Appetite: Fair Muscle strength/Tone: Normal Gait/Station: Normal Psychiatric Treatment Plan - Problem List (1) Alcohol dependence with uncomplicated withdrawal Current Visit: Yes (2) Cannabis dependence Current Visit: Yes (3) Cocaine dependence Current Visit: Yes (4) Bipolar disorder Current Visit: No Qualifiers: Active/Remission status: currently active Current episode severity: unspecified
[2020-03-27] MEDS: traZODone HCL 50 MG TABLET (FP) PO SCH (22:17)
[2020-03-27] MEDS: THIAMINE HCL 100 MG TABLET (FP) PO SCH (22:17)
[2020-03-27] MEDS: ARIPiprazole 5 MG TABLET PO SCH (22:17)
[2020-03-27] MEDS: MELATONIN 5 MG TABLETS PO SCH (22:17)
[2020-03-28] MEDS ORDERED: chlordiazePOXIDE HCL 10 MG CAPSULE PO PRN
[2020-03-28] MEDS: hydrOXYzine PAMOATE 25 MG CAPSULE (FP) PO SCH ×5 (07:14→22:13)
[2020-03-28] MEDS: metFORMIN HCL 500 MG TABLET (FP) PO SCH (07:14)
[2020-03-28] MEDS: chlordiazePOXIDE HCL 10 MG CAPSULE PO SCH ×4 (07:14→22:13)
[2020-03-28] MEDS: NICOTINE 7 MG/24 HOURS TOPICAL PATCH TD SCH (10:19)
[2020-03-28] MEDS: LISINOPRIL 10 MG TABLET (FP) PO SCH (10:20)
[2020-03-28] MEDS: PRENATAL VITAMINS W/ FOLIC ACID TABLET (FP) PO SCH (10:22)
--- NOTE | 2020-03-28 12:16 | PN ---
S CIWA - CIWA Score Nausea/Vomitin-No Nausea/No Vomiting Muscle Tremors: 3 Anxiety: 3 Agitation: 3 Paroxysmal Sweats: No Perspiration Orientation: 0-Oriented Tacttile Disturbances: 0-None Auditory Disturbances: 0-None Visual Disturbances: 0-None Headache: 0-None Present CIWA-Ar Total Score: 9 BHS Progress Note (SOAP) Subjective: Anxiety, sweats, slight tremor. Objective: 03/28/20 12:15 Vital Signs 03/28/20 06:00 Temperature 97.1 F L Pulse Rate 92 H Respiratory 18 Rate Blood Pressure 128/89 O2 Sat by Pulse 98 Oximetry (%) Laboratory Tests 03/25/20 03/26/20 03/26/20 16:20 06:25 07:10 WBC RBC Hgb Hct MCV MCH MCHC RDW Plt Count MPV Sodium Potassium Chloride Carbon Dioxide Anion Gap BUN Creatinine Est GFR (CKD-EPI)AfAm Est GFR (CKD-EPI)NonAf POC Glucometer 116 Random Glucose Calcium Total Bilirubin AST ALT Alkaline Phosphatase Total Protein Albumin Urine Color Yellow Urine Appearance Clear Urine pH 5.5 Ur Specific [place] 1.010 Urine Protein Negative Urine Glucose (UA) Negative Urine Ketones Negative Urine Blood Negative Urine Nitrite Negative Urine Bilirubin Negative Urine Urobilinogen 0.2 Ur Leukocyte Esterase Trace Urine WBC (Auto) 5 Urine RBC (Auto) 8 Urine Casts (Auto) 0 U Epithel Cells (Auto) 14 Urine Bacteria (Auto) 500 Syphilis Serology Non-reactive HIV Ag/Ab Combo Qual 03/26/20 03/26/20 03/26/20 07:10 07:10 07:10 WBC 4.1 RBC 4.74 Hgb 15.5 H Hct 44.5 MCV 93.8 MCH 32.8 MCHC 35.0 RDW 13.7 Plt Count 297 MPV 8.3 Sodium 139 Potassium 4.6 Chloride 106 Carbon Dioxide 14 L Anion Gap 19 H BUN 11.0 Creatinine 0.6 Est GFR (CKD-EPI)AfAm 118.93 Est GFR (CKD-EPI)NonAf 102.61 POC Glucometer Random Glucose 69 L Calcium 10.0 Total Bilirubin 0.5 AST 20 ALT 28 Alkaline Phosphatase 111 Total Protein 7.2 Albumin 0.1 L Urine Color Urine Appearance Urine pH Ur Specific [place] Urine Protein Urine Glucose (UA) Urine Ketones Urine Blood Urine Nitrite Urine Bilirubin Urine Urobilinogen Ur Leukocyte Esterase Urine WBC (Auto) Urine RBC (Auto) Urine Casts (Auto) U Epithel Cells (Auto) Urine Bacteria (Auto) Syphilis Serology HIV Ag/Ab Combo Qual Negative 03/27/20 03/27/20 03/28/20 06:13 16:51 07:14 WBC RBC Hgb Hct MCV MCH MCHC RDW Plt Count MPV Sodium Potassium Chloride Carbon Dioxide Anion Gap BUN Creatinine Est GFR (CKD-EPI)AfAm Est GFR (CKD-EPI)NonAf POC Glucometer 120 140 125 Random Glucose Calcium Total Bilirubin AST ALT Alkaline Phosphatase Total Protein Albumin Urine Color Urine Appearance Urine pH Ur Specific [place] Urine Protein Urine Glucose (UA) Urine Ketones Urine Blood Urine Nitrite Urine Bilirubin Urine Urobilinogen Ur Leukocyte Esterase Urine WBC (Auto) Urine RBC (Auto) Urine Casts (Auto) U Epithel Cells (Auto) Urine Bacteria (Auto) Syphilis Serology HIV Ag/Ab Combo Qual Covid-19 result pending Assessment: 03/28/20 12:15 withdrawal sx Plan: cont detox
[2020-03-28] MEDS: MELATONIN 5 MG TABLETS PO SCH (22:13)
[2020-03-28] MEDS: traZODone HCL 50 MG TABLET (FP) PO SCH (22:13)
[2020-03-28] MEDS: THIAMINE HCL 100 MG TABLET (FP) PO SCH (22:13)
[2020-03-28] MEDS: ARIPiprazole 5 MG TABLET PO SCH (22:13)
[2020-03-29] MEDS ORDERED: chlordiazePOXIDE HCL 10 MG CAPSULE PO SCH (05:00)
[2020-03-29] MEDS: hydrOXYzine PAMOATE 25 MG CAPSULE (FP) PO SCH ×2 (05:58→09:43)
[2020-03-29] MEDS: metFORMIN HCL 500 MG TABLET (FP) PO SCH (06:00)
[2020-03-29 08:56] VITALS: BP 162/97; PULSE 87; TEMP 96.8
[2020-03-29] MEDS: PRENATAL VITAMINS W/ FOLIC ACID TABLET (FP) PO SCH (09:43)
[2020-03-29] MEDS: LISINOPRIL 10 MG TABLET (FP) PO SCH (09:43)
[2020-03-29] MEDS: NICOTINE 7 MG/24 HOURS TOPICAL PATCH TD SCH (09:44)
--- NOTE | 2020-03-29 12:14 | DS ---
[facility] Detox Discharge Summary Admission Date: 03/25/20 Discharge Date: 03/29/20 - History Present History: Alcohol Dependence Additional Comments: 54 years old female admitted on 03/25/20 for alcohol withdrawal sx management treated with librium detox regiment seen by psychiatrist no medical intervention at this time mr peres has completed the librium regiment and is tolerated well alert oriented x 3 cardiac [id number] regular rate rhythm respiratory clear lung sounds bilaterally on auscultation skin warm and dry Pertinent Past History: alcohol withdrawal Vital Signs - 24 hr 03/28/20 03/28/20 03/28/20 12:52 14:46 17:17 Temperature 97.5 F L 97.3 F L Pulse Rate 101 H 95 H Respiratory 18 18 Rate Blood Pressure 130/70 155/95 O2 Sat by Pulse 96 96 Oximetry (%) 03/28/20 03/29/20 03/29/20 20:37 06:13 08:35 Temperature 97.3 F L 97.2 F L 96.8 F L Pulse Rate 95 H 101 H 87 Respiratory 18 18 18 Rate Blood Pressure 148/90 138/87 162/97 O2 Sat by Pulse 98 99 Oximetry (%) bp elevation continue lisinopril 20 mg po daily monthly supply to [facility] sent to preferred pharmacy metformin refilled sent to preferred pharmacy - Physical Exam Results Vital Signs: Vital Signs Temperature 96.8 F L 03/29/20 08:35 Pulse Rate 87 03/29/20 08:35 Respiratory Rate 18 03/29/20 08:35 Blood Pressure 162/97 03/29/20 08:35 O2 Sat by Pulse Oximetry (%) 99 03/29/20 06:13 Pertinent Admission Physical Exam Findings: alcohol withdrawal Laboratory Tests 03/25/20 03/25/20 03/26/20 14:10 16:20 06:25 WBC RBC Hgb Hct MCV MCH MCHC RDW Plt Count MPV Sodium Potassium Chloride Carbon Dioxide Anion Gap BUN Creatinine Est GFR (CKD-EPI)AfAm Est GFR (CKD-EPI)NonAf POC Glucometer 116 Random Glucose Calcium Total Bilirubin AST ALT Alkaline Phosphatase Total Protein Albumin Urine Color Yellow Urine Appearance Clear Urine pH 5.5 Ur Specific [place] 1.010 Urine Protein Negative Urine Glucose (UA) Negative Urine Ketones Negative Urine Blood Negative Urine Nitrite Negative Urine Bilirubin Negative Urine Urobilinogen 0.2 Ur Leukocyte Esterase Trace Urine WBC (Auto) 5 Urine RBC (Auto) 8 Urine Casts (Auto) 0 U Epithel Cells (Auto) 14 Urine Bacteria (Auto) 500 Syphilis Serology COVID-19 ([facility]) Not detected HIV Ag/Ab Combo Qual 03/26/20 03/26/20 03/26/20 07:10 07:10 07:10 WBC 4.1 RBC 4.74 Hgb 15.5 H Hct 44.5 MCV 93.8 MCH 32.8 MCHC 35.0 RDW 13.7 Plt Count 297 MPV 8.3 Sodium Potassium Chloride Carbon Dioxide Anion Gap BUN Creatinine Est GFR (CKD-EPI)AfAm Est GFR (CKD-EPI)NonAf POC Glucometer Random Glucose Calcium Total Bilirubin AST ALT Alkaline Phosphatase Total Protein Albumin Urine Color Urine Appearance Urine pH Ur Specific [place] Urine Protein Urine Glucose (UA) Urine Ketones Urine Blood Urine Nitrite Urine Bilirubin Urine Urobilinogen Ur Leukocyte Esterase Urine WBC (Auto) Urine RBC (Auto) Urine Casts (Auto) U Epithel Cells (Auto) Urine Bacteria (Auto) Syphilis Serology Non-reactive COVID-19 ([facility]) HIV Ag/Ab Combo Qual Negative 03/26/20 03/27/20 03/27/20 07:10 06:13 16:51 WBC RBC Hgb Hct MCV MCH MCHC RDW Plt Count MPV Sodium 139 Potassium 4.6 Chloride 106 Carbon Dioxide 14 L Anion Gap 19 H BUN 11.0 Creatinine 0.6 Est GFR (CKD-EPI)AfAm 118.93 Est GFR (CKD-EPI)NonAf 102.61 POC Glucometer 120 140 Random Glucose 69 L Calcium 10.0 Total Bilirubin 0.5 AST 20 ALT 28 Alkaline Phosphatase 111 Total Protein 7.2 Albumin 0.1 L Urine Color Urine Appearance Urine pH Ur Specific [place] Urine Protein Urine Glucose (UA) Urine Ketones Urine Blood Urine Nitrite Urine Bilirubin Urine Urobilinogen Ur Leukocyte Esterase Urine WBC (Auto) Urine RBC (Auto) Urine Casts (Auto) U Epithel Cells (Auto) Urine Bacteria (Auto) Syphilis Serology COVID-19 ([facility]UDA[facility]) HIV Ag/Ab Combo Qual 03/28/20 03/28/20 03/29/20 07:14 16:35 05:57 WBC RBC Hgb Hct MCV MCH MCHC RDW Plt Count MPV Sodium Potassium Chloride Carbon Dioxide Anion Gap BUN Creatinine Est GFR (CKD-EPI)AfAm Est GFR (CKD-EPI)NonAf POC Glucometer 125 132 110 Random Glucose Calcium Total Bilirubin AST ALT Alkaline Phosphatase Total Protein Albumin Urine Color Urine Appearance Urine pH Ur Specific [place] Urine Protein Urine Glucose (UA) Urine Ketones Urine Blood Urine Nitrite Urine Bilirubin Urine Urobilinogen Ur Leukocyte Esterase Urine WBC (Auto) Urine RBC (Auto) Urine Casts (Auto) U Epithel Cells (Auto) Urine Bacteria (Auto) Syphilis Serology COVID-19 ([facility]) HIV Ag/Ab Combo Qual - Treatment Hospital Course: Detox Protocol Followed, Detoxed Safely, Responded well, Discharged Condition Good, Rehab Referral Accepted Patient has Accepted a Rehab Referral [facility]: [facility] - Medication Discharge Medications: Ambulatory Orders Lisinopril 10 mg PO DAILY #30 tablet 04/11/18 Risperidone [Risperdal -] 4 mg PO DAILY 01/17/19 metFORMIN HCL [Metformin HCl] 500 mg PO BID 03/27/20 Lisinopril [Prinivil] 20 mg PO DAILY #30 tablet 03/29/20 Lisinopril [Prinivil] 20 mg PO DAILY 30 Days #30 tablet 03/29/20 metFORMIN HCL [Glucophage -] 500 mg PO DAILY 30 Days #30 tablet 03/29/20 metFORMIN HCL [Glucophage -] 500 mg PO DAILY@0700 #30 tablet 03/29/20 - Diagnosis (1) Alcohol dependence with uncomplicated withdrawal Current Visit: Yes Status: Acute (2) Nicotine dependence Current Visit: Yes Status: Acute Qualifiers: Nicotine product type: cigarettes Substance use status: in withdrawal Qualified Code(s): F17.213 - Nicotine dependence, cigarettes, with withdrawal (3) DM type 2 (diabetes mellitus, type 2) Current Visit: Yes Status: Chronic Qualifiers: Diabetes mellitus correction insulin use: without termite treater helper use Diabetes mellitus complication status: without complication Qualified Code(s): E11.9 - Type 2 diabetes mellitus without complications (4) GERD (gastroesophageal reflux disease) Current Visit: Yes Status: Chronic Qualifiers: Esophagitis presence: without esophagitis Qualified Code(s): K21.9 - Gastro-esophageal reflux disease without esophagitis (5) Hypertension Current Visit: Yes Status: Chronic Qualifiers: Hypertension type: essential hypertension Qualified Code(s): I10 - Essential (primary) hypertension (6) Nicotine dependence Current Visit: Yes Status: Acute Qualifiers: Nicotine product type: cigarettes Substance use status: in withdrawal Qualified Code(s): F17.213 - Nicotine dependence, cigarettes, with withdrawal (7) Positive PPD, treated Current Visit: Yes Status: Resolved - AMA Did Patient Leave Against Medical Advice: No CIWA Score - CIWA Score Nausea/Vomitin-No Nausea/No Vomiting Muscle Tremors: 2 Anxiety: 2 Agitation: 2 Paroxysmal Sweats: No Perspiration Orientation: 0-Oriented Tacttile Disturbances: 0-None Auditory Disturbances: 0-None Visual Disturbances: 0-None Headache: 0-None Present CIWA-Ar Total Score: 6
[2020-03-30] MEDS ORDERED: chlordiazePOXIDE HCL 10 MG CAPSULE PO ONE (05:00)
== END 2020-03-29 12:46 | disposition home or self-care (01) | DRG 774 ==
LOC: YASAS 10:29 → Y5N DETOX 13:57 → Y6N 13:58 → Y5N DETOX 13:58 → Y3N 03-28 14:57
PROVIDERS: ADMIT Allergy & Immunology; ATTEND Allergy & Immunology
PROC: HZ2ZZZZ Detoxification Services for Substance Abuse Treatment (ICD-10-PCS; principal; 2020-03-25)
DX: F10.230 Alcohol dependence with withdrawal, uncomplicated (principal); F14.20 Cocaine dependence, uncomplicated; F12.20 Cannabis dependence, uncomplicated; F17.210 Nicotine dependence, cigarettes, uncomplicated; F31.9 Bipolar disorder, unspecified; I10 Essential (primary) hypertension; E11.9 Type 2 diabetes mellitus without complications; Z79.84 Long term (current) use of oral hypoglycemic drugs; K21.9 Gastro-esophageal reflux disease without esophagitis; I83.90 Asymptomatic varicose veins of unspecified lower extremity; D25.9 Leiomyoma of uterus, unspecified; R76.11 Nonspecific reaction to tuberculin skin test without active tuberculosis
CPT/HCPCS: 36415; 71046-TC-FY; 80053; 81003; 82962; 85027; 86780; 87077; 87086; 87389; U0003

== ENCOUNTER 2020-11-16 17:37 | Inpatient (IN) | payer OTHER ==
[2020-11-16 18:36] VITALS: BMI 28.1
[2020-11-16] MEDS ORDERED: ACETAMINOPHEN 325 MG TABLET (FP) PO PRN ×2 (19:50)
[2020-11-16] MEDS ORDERED: MAGNESIUM HYDROX 2400MG/30ML ORAL SUSPENSION 30 ML CUP PO PRN (19:50)
[2020-11-16] MEDS ORDERED: hydrOXYzine PAMOATE 25 MG CAPSULE (FP) PO PRN (19:50)
[2020-11-16] MEDS ORDERED: METHOCARBAMOL 500 MG TABLET PO PRN (19:50)
[2020-11-16] MEDS ORDERED: MAG HYDROX/AL HYDROX/SIMETH 30 ML UNIT-DOSE CUP PO PRN (19:50)
[2020-11-16] MEDS ORDERED: BISMUTH SUBSALICYLATE 524 MG/30 ML UD PO PRN (19:50)
[2020-11-16] MEDS ORDERED: IBUPROFEN 400 MG TABLET (FP) PO PRN (19:50)
[2020-11-16] MEDS ORDERED: MENTHOL/PHENOL 1 EACH UD MM PRN (19:50)
[2020-11-16] MEDS ORDERED: NICOTINE POLACRILEX 2 MG GUM BUC PRN (19:50)
[2020-11-16] MEDS ORDERED: MAGNESIUM CITRATE 300 ML BOTTLE PO PRN (19:50)
[2020-11-16] MEDS ORDERED: ONDANSETRON *ODT* 4 MG TABLET SL PRN (19:50)
[2020-11-16] MEDS ORDERED: chlordiazePOXIDE HCL 25 MG CAPSULE PO PRN (19:50)
[2020-11-16] MEDS ORDERED: MELATONIN 5 MG TABLETS PO SCH (22:00)
[2020-11-16] MEDS ORDERED: THIAMINE HCL 100 MG TABLET (FP) PO SCH (22:00)
[2020-11-16] MEDS: chlordiazePOXIDE HCL 25 MG CAPSULE PO SCH (22:19)
[2020-11-17] MEDS: chlordiazePOXIDE HCL 25 MG CAPSULE PO SCH ×2 (05:33→10:53)
[2020-11-17] MEDS ORDERED: INSULIN SLIDING SCALE (NOVOLOG) 1 VIAL SQ ONE (06:38)
[2020-11-17] MEDS ORDERED: NICOTINE 14 MG/24 HOURS TOPICAL PATCH TD SCH (10:00)
[2020-11-17] MEDS ORDERED: PRENATAL VITAMINS W/ FOLIC ACID TABLET (FP) PO SCH (10:00)
[2020-11-17 11:15] LABS: POTASSIUM 4.1 mmol/L (3.5-5.1)
[2020-11-17 11:16] LABS: HEMATOCRIT 39.4 % (32.4-45.2); HEMOGLOBIN 14.1 GM/dL (10.7-15.3); MCH 32.7 pg (25.7-33.7); MCHC 35.8 g/dl (32.0-36.0); MEAN CELL VOLUME 91.2 fl (80-96); MEAN PLT VOLUME 8.2 fl (7.5-11.1); PLATELET COUNT 288 K/MM3 (134-434); RBC 4.32 M/mm3 (3.60-5.2); RDW 13.7 % (11.6-15.6); WHITE BLOOD COUNT 4.9 K/mm3 (4.0-10.0)
[2020-11-17 11:17] LABS: CALCIUM 9.5 mg/dL (8.5-10.1)
[2020-11-17 11:18] LABS: ALBUMIN 3.4 g/dl (3.4-5.0); BLOOD UREA NITROGEN 13.5 mg/dL (7-18)
[2020-11-17 11:21] LABS: CREATININE 0.8 mg/dL (0.55-1.3)
[2020-11-17 11:22] LABS: BILIRUBIN,TOTAL 0.4 mg/dL (0.2-1)
[2020-11-17 11:23] LABS: TOT PROT 6.8 g/dl (6.4-8.2)
[2020-11-17 17:11] VITALS: BP 130/75; PULSE 83; TEMP 96.6
[2020-11-17] MEDS ORDERED: traZODone HCL 50 MG TABLET (FP) PO SCH (22:00)
[2020-11-18] MEDS ORDERED: chlordiazePOXIDE HCL 25 MG CAPSULE PO SCH (05:00)
[2020-11-18] MEDS ORDERED: metFORMIN HCL 500 MG TABLET (FP) PO SCH (07:00)
[2020-11-18] MEDS ORDERED: LISINOPRIL 10 MG TABLET PO SCH (10:00)
[2020-11-19] MEDS ORDERED: chlordiazePOXIDE HCL 10 MG CAPSULE PO PRN
[2020-11-19] MEDS ORDERED: chlordiazePOXIDE HCL 10 MG CAPSULE PO SCH (05:00)
[2020-11-20] MEDS ORDERED: chlordiazePOXIDE HCL 10 MG CAPSULE PO SCH (05:00)
[2020-11-21] MEDS ORDERED: chlordiazePOXIDE HCL 10 MG CAPSULE PO ONE (05:00)
== END 2020-11-17 16:42 | disposition left against medical advice (07) | DRG 770 ==
LOC: YASAS 17:37 → Y3N 20:23
PROVIDERS: ADMIT Allergy & Immunology; ATTEND Allergy & Immunology
PROC: HZ2ZZZZ Detoxification Services for Substance Abuse Treatment (ICD-10-PCS; principal; 2020-11-16)
DX: F10.230 Alcohol dependence with withdrawal, uncomplicated (principal); F14.20 Cocaine dependence, uncomplicated; F16.20 Hallucinogen dependence, uncomplicated; F17.210 Nicotine dependence, cigarettes, uncomplicated; F31.9 Bipolar disorder, unspecified; G47.00 Insomnia, unspecified; I10 Essential (primary) hypertension; K21.9 Gastro-esophageal reflux disease without esophagitis; E11.9 Type 2 diabetes mellitus without complications; Z79.84 Long term (current) use of oral hypoglycemic drugs; M54.5 Low back pain; G89.29 Other chronic pain; Z86.79 Personal history of other diseases of the circulatory system; Z86.2 Personal history of diseases of the blood and blood-forming organs and certain disorders involving the immune mechanism; Z86.19 Personal history of other infectious and parasitic diseases; Z56.0 Unemployment, unspecified; Z98.890 Other specified postprocedural states; Z91.19 Patient's noncompliance with other medical treatment and regimen
CPT/HCPCS: 36415; 80053; 82962; 85027; 86780; 93005; 93010; C9803; U0003

== ENCOUNTER 2021-02-22 15:00 | Inpatient (IN) | payer OTHER ==
[2021-02-22 16:29] VITALS: BMI 31.6
[2021-02-22] MEDS ORDERED: MENTHOL/PHENOL 1 EACH UD MM PRN (17:02)
[2021-02-22] MEDS ORDERED: MAG HYDROX/AL HYDROX/SIMETH 30 ML UNIT-DOSE CUP PO PRN (17:02)
[2021-02-22] MEDS ORDERED: BISMUTH SUBSALICYLATE 524 MG/30 ML PO PRN (17:02)
[2021-02-22] MEDS ORDERED: MAGNESIUM HYDROX 2400MG/30ML ORAL SUSPENSION 30 ML CUP PO PRN (17:02)
[2021-02-22] MEDS ORDERED: NICOTINE POLACRILEX 2 MG GUM BUC PRN (17:02)
[2021-02-22] MEDS ORDERED: ONDANSETRON *ODT* 4 MG TABLET SL PRN (17:02)
[2021-02-22] MEDS ORDERED: IBUPROFEN 400 MG TABLET (FP) PO PRN (17:02)
[2021-02-22] MEDS ORDERED: ACETAMINOPHEN 325 MG TABLET (FP) PO PRN ×2 (17:02)
[2021-02-22] MEDS ORDERED: chlordiazePOXIDE HCL 25 MG CAPSULE PO PRN (17:02)
[2021-02-22] MEDS ORDERED: MAGNESIUM CITRATE 300 ML BOTTLE PO PRN (17:02)
[2021-02-22] MEDS ORDERED: METHOCARBAMOL 500 MG TABLET PO PRN (17:02)
[2021-02-22] MEDS: chlordiazePOXIDE HCL 25 MG CAPSULE PO SCH (19:04)
[2021-02-22] MEDS: hydrOXYzine PAMOATE 25 MG CAPSULE (FP) PO SCH (19:04)
[2021-02-22] MEDS: PRENATAL VITAMINS W/ FOLIC ACID TABLET (FP) PO SCH (19:05)
[2021-02-23] MEDS: hydrOXYzine PAMOATE 25 MG CAPSULE (FP) PO SCH ×5 (00:11→18:22)
[2021-02-23] MEDS: chlordiazePOXIDE HCL 25 MG CAPSULE PO SCH ×4 (00:11→18:22)
[2021-02-23] MEDS: MELATONIN 5 MG TABLETS PO SCH (00:11)
[2021-02-23] MEDS: THIAMINE HCL 100 MG TABLET (FP) PO SCH (00:11)
[2021-02-23] MEDS: metFORMIN HCL 500 MG TABLET (FP) PO SCH (06:44)
[2021-02-23 10:17] LABS: HEMATOCRIT 39.5 % (32.4-45.2); HEMOGLOBIN 14.4 GM/dL (10.7-15.3); MCHC 36.6 g/dl (32.0-36.0); MEAN CELL VOLUME 90.1 fl (80-96); MEAN PLT VOLUME 8.4 fl (7.5-11.1); PLATELET COUNT 275 K/MM3 (134-434); RBC 4.38 M/mm3 (3.60-5.2); RDW 14.1 % (11.6-15.6); WHITE BLOOD COUNT 5.8 K/mm3 (4.0-10.0)
[2021-02-23 10:19] LABS: ALBUMIN 3.6 g/dl (3.4-5.0)
[2021-02-23 10:21] LABS: BILIRUBIN,TOTAL 0.7 mg/dL (0.2-1); TOT PROT 6.9 g/dl (6.4-8.2)
[2021-02-23 10:22] LABS: BLOOD UREA NITROGEN 12.5 mg/dL (7-18)
[2021-02-23 10:23] LABS: CREATININE 0.7 mg/dL (0.55-1.3)
[2021-02-23] MEDS: LISINOPRIL 10 MG TABLET PO SCH (10:27)
[2021-02-23] MEDS: PRENATAL VITAMINS W/ FOLIC ACID TABLET (FP) PO SCH (10:27)
[2021-02-23] MEDS: NICOTINE 7 MG/24 HOURS TOPICAL PATCH TD SCH (10:29)
[2021-02-24] MEDS: chlordiazePOXIDE HCL 25 MG CAPSULE PO SCH ×4 (00:08→18:16)
[2021-02-24] MEDS: THIAMINE HCL 100 MG TABLET (FP) PO SCH ×2 (00:08→22:55)
[2021-02-24] MEDS: MELATONIN 5 MG TABLETS PO SCH ×2 (00:08→22:55)
[2021-02-24] MEDS: traZODone HCL 100 MG TABLET (FP) PO SCH ×2 (00:08→22:55)
[2021-02-24] MEDS: hydrOXYzine PAMOATE 25 MG CAPSULE (FP) PO SCH ×6 (00:08→22:58)
[2021-02-24] MEDS: metFORMIN HCL 500 MG TABLET (FP) PO SCH (07:58)
[2021-02-24] MEDS: PRENATAL VITAMINS W/ FOLIC ACID TABLET (FP) PO SCH (10:50)
[2021-02-24] MEDS: NICOTINE 7 MG/24 HOURS TOPICAL PATCH TD SCH (10:50)
[2021-02-24] MEDS: LISINOPRIL 10 MG TABLET PO SCH (10:50)
[2021-02-24] MEDS ORDERED: LORazepam 1 MG TABLET PO PRN (19:27)
[2021-02-24] MEDS ORDERED: traZODone HCL 50 MG TABLET (FP) ONE (21:49)
[2021-02-24] MEDS: GABAPENTIN 100 MG CAPSULE PO SCH (22:55)
[2021-02-24] MEDS: LORazepam 2 MG TABLET PO SCH (22:56)
[2021-02-25] MEDS ORDERED: chlordiazePOXIDE HCL 10 MG CAPSULE PO PRN
[2021-02-25] MEDS ORDERED: chlordiazePOXIDE HCL 10 MG CAPSULE PO SCH (05:00)
[2021-02-25] MEDS: hydrOXYzine PAMOATE 25 MG CAPSULE (FP) PO SCH (06:08)
[2021-02-25] MEDS: GABAPENTIN 100 MG CAPSULE PO SCH (06:08)
[2021-02-25] MEDS: LORazepam 2 MG TABLET PO SCH (06:09)
[2021-02-25] MEDS: metFORMIN HCL 500 MG TABLET (FP) PO SCH (06:14)
[2021-02-25 09:37] VITALS: BP 160/80; PULSE 87; TEMP 98.3
[2021-02-25] MEDS: LISINOPRIL 10 MG TABLET PO SCH (09:57)
[2021-02-26] MEDS ORDERED: LORazepam 1 MG TABLET PO SCH (05:00)
[2021-02-26] MEDS ORDERED: chlordiazePOXIDE HCL 10 MG CAPSULE PO SCH (05:00)
[2021-02-27] MEDS ORDERED: LORazepam 0.5 MG TABLET PO PRN
[2021-02-27] MEDS ORDERED: chlordiazePOXIDE HCL 10 MG CAPSULE PO ONE (05:00)
[2021-02-27] MEDS ORDERED: LORazepam 0.5 MG TABLET PO SCH (05:00)
[2021-02-28] MEDS ORDERED: LORazepam 0.5 MG TABLET PO ONE (05:00)
== END 2021-02-25 11:51 | disposition left against medical advice (07) | DRG 770 ==
LOC: YASAS 15:00 → Y6N 18:16
PROVIDERS: ADMIT Allergy & Immunology; ATTEND Allergy & Immunology
PROC: HZ2ZZZZ Detoxification Services for Substance Abuse Treatment (ICD-10-PCS; principal; 2021-02-22)
DX: F10.230 Alcohol dependence with withdrawal, uncomplicated (principal); F14.20 Cocaine dependence, uncomplicated; F12.20 Cannabis dependence, uncomplicated; F17.210 Nicotine dependence, cigarettes, uncomplicated; F19.282 Other psychoactive substance dependence with psychoactive substance-induced sleep disorder; F19.24 Other psychoactive substance dependence with psychoactive substance-induced mood disorder; F31.9 Bipolar disorder, unspecified; E11.9 Type 2 diabetes mellitus without complications; Z79.84 Long term (current) use of oral hypoglycemic drugs; I10 Essential (primary) hypertension; K21.9 Gastro-esophageal reflux disease without esophagitis; R76.11 Nonspecific reaction to tuberculin skin test without active tuberculosis; G56.01 Carpal tunnel syndrome, right upper limb; M65.332 Trigger finger, left middle finger; M54.5 Low back pain; G89.29 Other chronic pain; E66.9 Obesity, unspecified; Z68.31 Body mass index [BMI] 31.0-31.9, adult
CPT/HCPCS: 36415; 80053; 82962; 85027; 86780; C9803; U0003; U0005

== ENCOUNTER 2021-05-02 16:28 | Inpatient (IN) | payer OTHER ==
[2021-05-02] MEDS ORDERED: NICOTINE POLACRILEX 2 MG GUM BUC PRN (23:16)
[2021-05-02] MEDS ORDERED: MAGNESIUM HYDROX 2400MG/30ML ORAL SUSPENSION 30 ML CUP PO PRN (23:16)
[2021-05-02] MEDS ORDERED: MAGNESIUM CITRATE 300 ML BOTTLE PO PRN (23:16)
[2021-05-02] MEDS ORDERED: IBUPROFEN 400 MG TABLET (FP) PO PRN (23:16)
[2021-05-02] MEDS ORDERED: ACETAMINOPHEN 325 MG TABLET (FP) PO PRN ×2 (23:16)
[2021-05-02] MEDS ORDERED: MAG HYDROX/AL HYDROX/SIMETH 30 ML UNIT-DOSE CUP PO PRN (23:16)
[2021-05-02] MEDS ORDERED: MENTHOL/PHENOL 1 EACH UD MM PRN (23:16)
[2021-05-02] MEDS ORDERED: METHOCARBAMOL 500 MG TABLET PO PRN (23:16)
[2021-05-02] MEDS ORDERED: BISMUTH SUBSALICYLATE 524 MG/30 ML PO PRN (23:16)
[2021-05-02] MEDS ORDERED: ONDANSETRON *ODT* 4 MG TABLET SL PRN (23:16)
[2021-05-03 00:12] VITALS: BMI 29.7
[2021-05-03] MEDS: hydrOXYzine PAMOATE 25 MG CAPSULE (FP) PO SCH ×2 (06:33→09:23)
[2021-05-03 06:51] VITALS: BP 149/85; PULSE 80; TEMP 97.7
[2021-05-03] MEDS ORDERED: PT OWN MED DRAWER 7, Y5N ONE (07:23)
[2021-05-03] MEDS ORDERED: NICOTINE 7 MG/24 HOURS TOPICAL PATCH TD SCH (10:00)
[2021-05-03] MEDS ORDERED: LISINOPRIL 10 MG TABLET PO SCH (10:00)
[2021-05-03] MEDS ORDERED: PRENATAL VITAMINS W/ FOLIC ACID TABLET (FP) PO SCH (10:00)
[2021-05-03 10:50] LABS: HEMATOCRIT 39.9 % (32.4-45.2); HEMOGLOBIN 14.1 GM/dL (10.7-15.3); MCH 32.3 pg (25.7-33.7); MCHC 35.2 g/dl (32.0-36.0); MEAN CELL VOLUME 91.6 fl (80-96); MEAN PLT VOLUME 8.1 fl (7.5-11.1); PLATELET COUNT 270 10^3/uL (134-434); RBC 4.36 M/mm3 (3.60-5.2); RDW 14.5 % (11.6-15.6); WHITE BLOOD COUNT 5.4 K/mm3 (4.0-10.0)
[2021-05-03 11:36] LABS: ALBUMIN 3.6 g/dl (3.4-5.0); BLOOD UREA NITROGEN 13.5 mg/dL (7-18); CALCIUM 9.5 mg/dL (8.5-10.1)
[2021-05-03 11:37] LABS: BILIRUBIN,TOTAL 0.5 mg/dL (0.2-1); CREATININE 0.7 mg/dL (0.55-1.3); TOT PROT 6.9 g/dl (6.4-8.2)
[2021-05-03 11:48] LABS: HIV INTERPRETATION NEGATIVE (NEGATIVE)
[2021-05-03] MEDS ORDERED: MELATONIN 5 MG TABLETS PO SCH (22:00)
[2021-05-03] MEDS ORDERED: THIAMINE HCL 100 MG TABLET (FP) PO SCH (22:00)
== END 2021-05-03 09:35 | disposition left against medical advice (07) | DRG 770 ==
LOC: YASAS 16:28 → Y5N 22:56
PROVIDERS: ADMIT Allergy & Immunology; ATTEND Allergy & Immunology
PROC: HZ42ZZZ Group Counseling for Substance Abuse Treatment, Cognitive-Behavioral (ICD-10-PCS; principal; 2021-05-02)
DX: F10.20 Alcohol dependence, uncomplicated (principal); F14.20 Cocaine dependence, uncomplicated; F17.210 Nicotine dependence, cigarettes, uncomplicated; I10 Essential (primary) hypertension; E11.9 Type 2 diabetes mellitus without complications; K21.9 Gastro-esophageal reflux disease without esophagitis; Z79.84 Long term (current) use of oral hypoglycemic drugs
CPT/HCPCS: 36415; 80053; 82962; 85027; 86780; 87389; C9803; U0003; U0005

== ENCOUNTER 2021-10-25 11:45 | Inpatient (IN) | payer OTHER ==
[2021-10-25] MEDS ORDERED: chlordiazePOXIDE HCL 25 MG CAPSULE PO PRN (13:15)
[2021-10-25] MEDS ORDERED: ACETAMINOPHEN 325 MG TABLET (FP) PO PRN ×2 (13:15)
[2021-10-25] MEDS ORDERED: MAG HYDROX/AL HYDROX/SIMETH 30 ML UNIT-DOSE CUP PO PRN (13:15)
[2021-10-25] MEDS ORDERED: MAGNESIUM HYDROX 2400MG/30ML ORAL SUSPENSION 30 ML CUP PO PRN (13:15)
[2021-10-25] MEDS ORDERED: NICOTINE 10 MG CARTRIDGE (INHALER) IH PRN (13:15)
[2021-10-25] MEDS ORDERED: ONDANSETRON *ODT* 4 MG TABLET SL PRN (13:15)
[2021-10-25] MEDS ORDERED: MAGNESIUM CITRATE 300 ML BOTTLE PO PRN (13:15)
[2021-10-25] MEDS ORDERED: BISMUTH SUBSALICYLATE 262 MG/15 ML BTL PO PRN (13:15)
[2021-10-25] MEDS ORDERED: IBUPROFEN 400 MG TABLET (FP) PO PRN (13:15)
[2021-10-25] MEDS ORDERED: MENTHOL/PHENOL 1 EACH UD MM PRN (13:15)
[2021-10-25] MEDS ORDERED: METHOCARBAMOL 500 MG TABLET PO PRN (13:15)
[2021-10-25 13:43] VITALS: BMI 31.6
[2021-10-25] MEDS: hydrOXYzine PAMOATE 25 MG CAPSULE (FP) PO SCH ×3 (15:42→23:09)
[2021-10-25 18:28] LABS: HIV INTERPRETATION NEGATIVE (NEGATIVE)
[2021-10-25] MEDS: chlordiazePOXIDE HCL 25 MG CAPSULE PO SCH ×2 (18:43→23:06)
[2021-10-25] MEDS ORDERED: traZODone HCL 50 MG TABLET (FP) PO SCH (22:00)
[2021-10-25] MEDS: THIAMINE HCL 100 MG TABLET (FP) PO SCH (23:06)
[2021-10-25] MEDS: traZODone HCL 100 MG TABLET (FP) PO SCH (23:06)
[2021-10-25] MEDS: MELATONIN 5 MG TABLETS PO SCH (23:06)
[2021-10-26] MEDS: chlordiazePOXIDE HCL 25 MG CAPSULE PO SCH ×4 (06:59→22:20)
[2021-10-26] MEDS: metFORMIN HCL 500 MG TABLET (FP) PO SCH (06:59)
[2021-10-26] MEDS: hydrOXYzine PAMOATE 25 MG CAPSULE (FP) PO SCH ×5 (06:59→22:20)
[2021-10-26 09:57] LABS: HEMATOCRIT 41.2 % (32.4-45.2); HEMOGLOBIN 14.3 GM/dL (10.7-15.3); MCH 30.5 pg (25.7-33.7); MCHC 34.8 g/dl (32.0-36.0); MEAN CELL VOLUME 87.8 fl (80-96); MEAN PLT VOLUME 8.3 fl (7.5-11.1); PLATELET COUNT 280 10^3/uL (134-434); RBC 4.69 M/mm3 (3.60-5.2); RDW 14.5 % (11.6-15.6); WHITE BLOOD COUNT 4.9 K/mm3 (4.0-10.0)
[2021-10-26 10:00] LABS: ALBUMIN 3.8 g/dl (3.4-5.0)
[2021-10-26 10:01] LABS: CALCIUM 9.7 mg/dL (8.5-10.1)
[2021-10-26 10:02] LABS: BLOOD UREA NITROGEN 9.9 mg/dL (7-18)
[2021-10-26 10:05] LABS: CREATININE 0.8 mg/dL (0.55-1.3)
[2021-10-26 10:07] LABS: BILIRUBIN,TOTAL 0.4 mg/dL (0.2-1); TOT PROT 7.2 g/dl (6.4-8.2)
[2021-10-26] MEDS: PRENATAL VITAMINS W/ FOLIC ACID TABLET (FP) PO SCH (11:45)
[2021-10-26] MEDS: LISINOPRIL 10 MG TABLET PO SCH (11:45)
[2021-10-26] MEDS: MELATONIN 5 MG TABLETS PO SCH (22:20)
[2021-10-26] MEDS: traZODone HCL 100 MG TABLET (FP) PO SCH (22:20)
[2021-10-26] MEDS: THIAMINE HCL 100 MG TABLET (FP) PO SCH (22:20)
[2021-10-27] MEDS: hydrOXYzine PAMOATE 25 MG CAPSULE (FP) PO SCH ×6 (05:51→22:37)
[2021-10-27] MEDS: chlordiazePOXIDE HCL 25 MG CAPSULE PO SCH ×4 (05:52→22:37)
[2021-10-27] MEDS: metFORMIN HCL 500 MG TABLET (FP) PO SCH (06:00)
[2021-10-27] MEDS: PRENATAL VITAMINS W/ FOLIC ACID TABLET (FP) PO SCH (09:56)
[2021-10-27] MEDS: LISINOPRIL 10 MG TABLET PO SCH (09:56)
[2021-10-27] MEDS: MELATONIN 5 MG TABLETS PO SCH (22:37)
[2021-10-27] MEDS: traZODone HCL 100 MG TABLET (FP) PO SCH (22:37)
[2021-10-27] MEDS: THIAMINE HCL 100 MG TABLET (FP) PO SCH (22:37)
[2021-10-28] MEDS ORDERED: chlordiazePOXIDE HCL 10 MG CAPSULE PO PRN
[2021-10-28] MEDS: chlordiazePOXIDE HCL 10 MG CAPSULE PO SCH ×5 (06:16→22:50)
[2021-10-28] MEDS: hydrOXYzine PAMOATE 25 MG CAPSULE (FP) PO SCH ×5 (06:16→22:50)
[2021-10-28] MEDS: metFORMIN HCL 500 MG TABLET (FP) PO SCH (06:16)
[2021-10-28] MEDS: PRENATAL VITAMINS W/ FOLIC ACID TABLET (FP) PO SCH (10:46)
[2021-10-28] MEDS: LISINOPRIL 10 MG TABLET PO SCH (10:47)
[2021-10-28] MEDS: MELATONIN 5 MG TABLETS PO SCH (22:37)
[2021-10-28] MEDS: traZODone HCL 100 MG TABLET (FP) PO SCH (22:37)
[2021-10-28] MEDS: THIAMINE HCL 100 MG TABLET (FP) PO SCH (22:37)
[2021-10-29] MEDS ORDERED: chlordiazePOXIDE HCL 10 MG CAPSULE PO SCH (05:00)
[2021-10-29] MEDS: hydrOXYzine PAMOATE 25 MG CAPSULE (FP) PO SCH ×3 (05:46→14:13)
[2021-10-29] MEDS: metFORMIN HCL 500 MG TABLET (FP) PO SCH (07:15)
[2021-10-29] MEDS: PRENATAL VITAMINS W/ FOLIC ACID TABLET (FP) PO SCH (10:37)
[2021-10-29] MEDS: LISINOPRIL 10 MG TABLET PO SCH (10:37)
[2021-10-29 13:28] VITALS: TEMP 97.3
[2021-10-29 17:41] VITALS: BP 133/78; PULSE 97
[2021-10-30] MEDS ORDERED: chlordiazePOXIDE HCL 10 MG CAPSULE PO ONE (05:00)
== END 2021-10-29 18:07 | disposition home or self-care (01) | DRG 774 ==
LOC: YASAS 11:45 → Y3N 14:15
PROVIDERS: ADMIT Allergy & Immunology; ATTEND Allergy & Immunology
PROC: HZ2ZZZZ Detoxification Services for Substance Abuse Treatment (ICD-10-PCS; principal; 2021-10-25)
DX: F10.230 Alcohol dependence with withdrawal, uncomplicated (principal); F14.20 Cocaine dependence, uncomplicated; F12.20 Cannabis dependence, uncomplicated; F17.210 Nicotine dependence, cigarettes, uncomplicated; F19.282 Other psychoactive substance dependence with psychoactive substance-induced sleep disorder; F19.24 Other psychoactive substance dependence with psychoactive substance-induced mood disorder; F31.9 Bipolar disorder, unspecified; F41.9 Anxiety disorder, unspecified; I10 Essential (primary) hypertension; K21.9 Gastro-esophageal reflux disease without esophagitis; E11.9 Type 2 diabetes mellitus without complications; Z79.84 Long term (current) use of oral hypoglycemic drugs; E66.9 Obesity, unspecified; Z68.31 Body mass index [BMI] 31.0-31.9, adult
CPT/HCPCS: 36415; 80053; 82962; 85027; 86780; 87389; C9803; U0003; U0005

== ENCOUNTER 2022-01-03 11:56 | Inpatient (IN) | payer OTHER ==
[2022-01-03 12:30] VITALS: BMI 30.4
[2022-01-03] MEDS ORDERED: NICOTINE 10 MG CARTRIDGE (INHALER) IH PRN (13:09)
[2022-01-03] MEDS ORDERED: MAGNESIUM HYDROX 2400MG/30ML ORAL SUSPENSION 30 ML CUP PO PRN (13:09)
[2022-01-03] MEDS ORDERED: METHOCARBAMOL 500 MG TABLET PO PRN (13:09)
[2022-01-03] MEDS ORDERED: DICYCLOMINE HCL 10 MG CAPSULE PO PRN (13:09)
[2022-01-03] MEDS ORDERED: MAG HYDROX/AL HYDROX/SIMETH 30 ML UNIT-DOSE CUP PO PRN (13:09)
[2022-01-03] MEDS ORDERED: MENTHOL/PHENOL 1 EACH UD MM PRN (13:09)
[2022-01-03] MEDS ORDERED: MAGNESIUM CITRATE 300 ML BOTTLE PO PRN (13:09)
[2022-01-03] MEDS ORDERED: chlordiazePOXIDE HCL 25 MG CAPSULE PO PRN (13:09)
[2022-01-03] MEDS ORDERED: IBUPROFEN 400 MG TABLET (FP) PO PRN (13:09)
[2022-01-03] MEDS ORDERED: ACETAMINOPHEN 325 MG TABLET (FP) PO PRN ×2 (13:09)
[2022-01-03] MEDS ORDERED: LOPERAMIDE HCL 2 MG CAPSULE PO PRN (13:09)
[2022-01-03] MEDS ORDERED: BISMUTH SUBSALICYLATE 262 MG/15 ML BTL PO PRN (13:09)
[2022-01-03] MEDS ORDERED: ONDANSETRON *ODT* 4 MG TABLET SL PRN (13:09)
[2022-01-03] MEDS: hydrOXYzine PAMOATE 25 MG CAPSULE (FP) PO SCH ×3 (15:52→22:28)
[2022-01-03] MEDS: PRENATAL VITAMINS W/ FOLIC ACID TABLET (FP) PO SCH (15:52)
[2022-01-03] MEDS: LISINOPRIL 10 MG TABLET PO SCH (15:52)
[2022-01-03] MEDS: chlordiazePOXIDE HCL 25 MG CAPSULE PO SCH ×2 (18:39→22:29)
[2022-01-03] MEDS: THIAMINE HCL 100 MG TABLET (FP) PO SCH (22:28)
[2022-01-03] MEDS: risperiDONE 2 MG TABLET PO SCH (22:28)
[2022-01-03] MEDS: MIRTAZAPINE 15 MG TABLET (FP) PO SCH (22:29)
[2022-01-03] MEDS: MELATONIN 5 MG TABLETS PO SCH (22:30)
[2022-01-04] MEDS: chlordiazePOXIDE HCL 25 MG CAPSULE PO SCH ×4 (06:29→22:29)
[2022-01-04] MEDS: hydrOXYzine PAMOATE 25 MG CAPSULE (FP) PO SCH ×5 (06:29→22:29)
[2022-01-04] MEDS: metFORMIN HCL 500 MG TABLET (FP) PO SCH (06:30)
[2022-01-04 10:09] LABS: HEMATOCRIT 39.7 % (32.4-45.2); HEMOGLOBIN 14.1 GM/dL (10.7-15.3); MCH 31.4 pg (25.7-33.7); MCHC 35.5 g/dl (32.0-36.0); MEAN CELL VOLUME 88.4 fl (80-96); MEAN PLT VOLUME 8.2 fl (7.5-11.1); PLATELET COUNT 328 10^3/uL (134-434); RBC 4.49 M/mm3 (3.60-5.2); RDW 15.2 % (11.6-15.6); WHITE BLOOD COUNT 5.8 K/mm3 (4.0-10.0)
[2022-01-04 10:16] LABS: CALCIUM 9.5 mg/dL (8.5-10.1)
[2022-01-04 10:17] LABS: ALBUMIN 3.5 g/dl (3.4-5.0)
[2022-01-04 10:19] LABS: CREATININE 0.9 mg/dL (0.55-1.3)
[2022-01-04 10:21] LABS: BILIRUBIN,TOTAL 0.6 mg/dL (0.2-1); TOT PROT 7.5 g/dl (6.4-8.2)
[2022-01-04] MEDS: PRENATAL VITAMINS W/ FOLIC ACID TABLET (FP) PO SCH (10:47)
[2022-01-04] MEDS: LISINOPRIL 10 MG TABLET PO SCH (10:47)
[2022-01-04 18:07] LABS: SARS-CoV-2 NAA Not Detected (Not Detected)
[2022-01-04] MEDS: THIAMINE HCL 100 MG TABLET (FP) PO SCH (22:29)
[2022-01-04] MEDS: MIRTAZAPINE 15 MG TABLET (FP) PO SCH (22:29)
[2022-01-04] MEDS: risperiDONE 2 MG TABLET PO SCH (22:29)
[2022-01-04] MEDS: MELATONIN 5 MG TABLETS PO SCH (22:32)
[2022-01-05] MEDS: metFORMIN HCL 500 MG TABLET (FP) PO SCH (06:17)
[2022-01-05] MEDS: hydrOXYzine PAMOATE 25 MG CAPSULE (FP) PO SCH ×2 (06:17→10:24)
[2022-01-05] MEDS: chlordiazePOXIDE HCL 25 MG CAPSULE PO SCH ×2 (07:30→10:26)
[2022-01-05 07:43] VITALS: TEMP 96.9
[2022-01-05 09:55] VITALS: BP 138/78; PULSE 102
[2022-01-05] MEDS: LISINOPRIL 10 MG TABLET PO SCH (10:24)
[2022-01-05] MEDS: PRENATAL VITAMINS W/ FOLIC ACID TABLET (FP) PO SCH (10:24)
[2022-01-06] MEDS ORDERED: chlordiazePOXIDE HCL 10 MG CAPSULE PO PRN
[2022-01-06] MEDS ORDERED: chlordiazePOXIDE HCL 10 MG CAPSULE PO SCH (05:00)
[2022-01-07] MEDS ORDERED: chlordiazePOXIDE HCL 10 MG CAPSULE PO SCH (05:00)
[2022-01-08] MEDS ORDERED: chlordiazePOXIDE HCL 10 MG CAPSULE PO ONE (05:00)
== END 2022-01-05 10:58 | disposition left against medical advice (07) | DRG 770 ==
LOC: YASAS 11:56 → Y6N 14:37
PROVIDERS: ADMIT Allergy & Immunology; ATTEND Allergy & Immunology
PROC: HZ2ZZZZ Detoxification Services for Substance Abuse Treatment (ICD-10-PCS; principal; 2022-01-03)
DX: F10.230 Alcohol dependence with withdrawal, uncomplicated (principal); F14.20 Cocaine dependence, uncomplicated; F12.20 Cannabis dependence, uncomplicated; F17.210 Nicotine dependence, cigarettes, uncomplicated; F31.9 Bipolar disorder, unspecified; I10 Essential (primary) hypertension; K21.9 Gastro-esophageal reflux disease without esophagitis; E11.9 Type 2 diabetes mellitus without complications; Z79.84 Long term (current) use of oral hypoglycemic drugs; M54.50 Low back pain, unspecified; G89.29 Other chronic pain; R76.11 Nonspecific reaction to tuberculin skin test without active tuberculosis
CPT/HCPCS: 36415; 71046-TC-FY; 80053; 82962; 85027; 86780; 87811; C9803-CS; U0003; U0005

== ENCOUNTER 2022-04-25 11:16 | Inpatient (IN) | payer OTHER ==
[2022-04-25 12:40] VITALS: BMI 30.4
[2022-04-25] MEDS ORDERED: DICYCLOMINE HCL 10 MG CAPSULE PO PRN (15:46)
[2022-04-25] MEDS ORDERED: ACETAMINOPHEN 325 MG TABLET (FP) PO PRN ×2 (15:46)
[2022-04-25] MEDS ORDERED: LOPERAMIDE HCL 2 MG CAPSULE PO PRN (15:46)
[2022-04-25] MEDS ORDERED: chlordiazePOXIDE HCL 25 MG CAPSULE PO PRN (15:46)
[2022-04-25] MEDS ORDERED: IBUPROFEN 400 MG TABLET (FP) PO PRN (15:46)
[2022-04-25] MEDS ORDERED: ONDANSETRON *ODT* 4 MG TABLET SL PRN (15:46)
[2022-04-25] MEDS ORDERED: METHOCARBAMOL 500 MG TABLET PO PRN (15:46)
[2022-04-25] MEDS ORDERED: MAGNESIUM CITRATE 300 ML BOTTLE PO PRN (15:46)
[2022-04-25] MEDS ORDERED: IBUPROFEN 600 MG TABLET (FP) PO PRN (15:46)
[2022-04-25] MEDS ORDERED: BENZOCAINE/MENTHOL (CHLORASEPTIC ) LOZENGE MM PRN (15:46)
[2022-04-25] MEDS ORDERED: MAGNESIUM HYDROX 2400MG/30ML ORAL SUSPENSION 30 ML CUP PO PRN (15:46)
[2022-04-25] MEDS ORDERED: BISMUTH SUBSALICYLATE 524 MG/30 ML PO PRN (15:46)
[2022-04-25] MEDS ORDERED: MAG HYDROX/AL HYDROX/SIMETH 30 ML UNIT-DOSE CUP PO PRN (15:46)
[2022-04-25] MEDS: hydrOXYzine PAMOATE 25 MG CAPSULE (FP) PO SCH ×2 (17:16→23:08)
[2022-04-25] MEDS: MELATONIN 5 MG TABLETS PO SCH (23:07)
[2022-04-25] MEDS: chlordiazePOXIDE HCL 25 MG CAPSULE PO SCH (23:08)
[2022-04-25] MEDS: THIAMINE HCL 100 MG TABLET (FP) PO SCH (23:08)
[2022-04-26] MEDS: hydrOXYzine PAMOATE 25 MG CAPSULE (FP) PO SCH ×5 (06:28→22:36)
[2022-04-26] MEDS: chlordiazePOXIDE HCL 25 MG CAPSULE PO SCH ×4 (06:28→22:36)
[2022-04-26] MEDS: metFORMIN HCL 500 MG TABLET (FP) PO SCH (07:03)
[2022-04-26] MEDS: PRENATAL VITAMINS W/ FOLIC ACID TABLET (FP) PO SCH (10:17)
[2022-04-26] MEDS: LISINOPRIL 10 MG TABLET PO SCH (10:18)
[2022-04-26] MEDS: NICOTINE 7 MG/24 HOURS TOPICAL PATCH TD SCH (10:21)
[2022-04-26 12:28] LABS: HEMATOCRIT 38.4 % (32.4-45.2); HEMOGLOBIN 13.5 GM/dL (10.7-15.3); MCH 31.2 pg (25.7-33.7); MCHC 35.2 g/dl (32.0-36.0); MEAN CELL VOLUME 88.6 fl (80-96); PLATELET COUNT 294 10^3/uL (134-434); RBC 4.34 M/mm3 (3.60-5.2); RDW 14.6 % (11.6-15.6); WHITE BLOOD COUNT 5.1 K/mm3 (4.0-10.0)
[2022-04-26 12:32] LABS: CALCIUM 9.6 mg/dL (8.5-10.1)
[2022-04-26 12:33] LABS: ALBUMIN 3.6 g/dl (3.4-5.0); BLOOD UREA NITROGEN 12.5 mg/dL (7-18)
[2022-04-26 12:36] LABS: CREATININE 0.7 mg/dL (0.55-1.3)
[2022-04-26 12:38] LABS: BILIRUBIN,TOTAL 0.3 mg/dL (0.2-1); TOT PROT 6.8 g/dl (6.4-8.2)
[2022-04-26] MEDS: GABAPENTIN 300 MG CAPSULE PO SCH ×2 (15:05→22:36)
[2022-04-26] MEDS ORDERED: risperiDONE 2 MG TABLET PO SCH (22:00)
[2022-04-26] MEDS: MELATONIN 5 MG TABLETS PO SCH (22:36)
[2022-04-26] MEDS: THIAMINE HCL 100 MG TABLET (FP) PO SCH (22:36)
[2022-04-27] MEDS: chlordiazePOXIDE HCL 25 MG CAPSULE PO SCH ×2 (06:48→10:57)
[2022-04-27] MEDS: GABAPENTIN 300 MG CAPSULE PO SCH ×2 (06:48→15:09)
[2022-04-27] MEDS: hydrOXYzine PAMOATE 25 MG CAPSULE (FP) PO SCH ×3 (06:49→15:09)
[2022-04-27] MEDS: metFORMIN HCL 500 MG TABLET (FP) PO SCH (08:00)
[2022-04-27] MEDS: PRENATAL VITAMINS W/ FOLIC ACID TABLET (FP) PO SCH (10:56)
[2022-04-27] MEDS: LISINOPRIL 10 MG TABLET PO SCH (10:57)
[2022-04-27] MEDS: NICOTINE 7 MG/24 HOURS TOPICAL PATCH TD SCH (10:57)
[2022-04-27 12:50] VITALS: BP 146/86; PULSE 74; RESP 18; TEMP 98.3
[2022-04-28] MEDS ORDERED: chlordiazePOXIDE HCL 10 MG CAPSULE PO PRN
[2022-04-28] MEDS ORDERED: chlordiazePOXIDE HCL 10 MG CAPSULE PO SCH (05:00)
[2022-04-29] MEDS ORDERED: chlordiazePOXIDE HCL 10 MG CAPSULE PO SCH (05:00)
[2022-04-30] MEDS ORDERED: chlordiazePOXIDE HCL 10 MG CAPSULE PO ONE (05:00)
== END 2022-04-27 17:45 | disposition left against medical advice (07) | DRG 770 ==
LOC: YASAS 11:16 → Y3N 16:35
PROVIDERS: ADMIT Allergy & Immunology; ATTEND Surgery
PROC: HZ2ZZZZ Detoxification Services for Substance Abuse Treatment (ICD-10-PCS; principal; 2022-04-25)
DX: F10.230 Alcohol dependence with withdrawal, uncomplicated (principal); F14.20 Cocaine dependence, uncomplicated; F12.10 Cannabis abuse, uncomplicated; F17.210 Nicotine dependence, cigarettes, uncomplicated; F31.9 Bipolar disorder, unspecified; F19.24 Other psychoactive substance dependence with psychoactive substance-induced mood disorder; I10 Essential (primary) hypertension; K21.9 Gastro-esophageal reflux disease without esophagitis; E11.9 Type 2 diabetes mellitus without complications; M54.50 Low back pain, unspecified; G89.29 Other chronic pain; Z79.84 Long term (current) use of oral hypoglycemic drugs
CPT/HCPCS: 36415; 80053; 82962; 85027; 86780; C9803-CS; U0003; U0005